=== PATIENT | male | born 1930 | race Caucasian/White ===

== ENCOUNTER 2016-08-21 05:56 | Inpatient (IN) | payer OTHER ==
[~2016-08-21] VITALS: Ht 172.7 cm; Wt 59.1 kg
[~2016-08-21 05:56] MED LIST: ALBUTEROL0.09 MG/A1 INH; AZITHROMYCIN250 MG PO; CEFUROXIME AXE500 MG PO; CHILDREN'S ASPI81 M1 PO; CLONAZEPAM0.5 M2 PO; EXELON1 EAC2 TOP; FEROSUL325 M1 PO; LEVOTHROID0.025 MG PO; NAMENDA10 M2 PO; NAMENDA10 MG PO; NAMENDA5 MG PO; OMEPRAZOLE40 M1 PO; SYMBICORT 16010.2 GM INH; ZOLOFT100 M1 PO
--- NOTE | 2016-08-21 06:18 | NUR ---
PT BIBA FROM HOME. PER EMS, PT'S STATES THAT PT'S HAS A CHANGE IN MENTAL STATUS AND URINE IS DARK IN COLOR. IN EMS PT'S TEMP WAS 102.6. ON ARRIVAL PT'S TEMP 99.0. PT ARRIVES TO ED ALERT. PT HAS HISTORY OF DEMENTIA, PARKINSONS AND LEUKEMIA. PREHOSPITAL 20G IN LF, NS BOLUS INITIATED VIA EMS.
--- NOTE | 2016-08-21 07:16 | NUR ---
PT'S AT BEDSIDE. PT ASSISTED TO COMMODE.
--- NOTE | 2016-08-21 07:28 | NUR ---
DR KATZ IN FOR EVAL.
--- NOTE | 2016-08-21 07:42 | ED AMS/SEIZURE/WEAK/DIZZY ---
History of Present Illness General Chief Complaint: General Adult Stated Complaint: BIBA AMS,DEMENTIA,FEVER Source: old records, Exam Limitations: unable to give history, dementia Vital Signs & Intake/Output Vital Signs & Intake/Output Vital Signs Date Time Temp Pulse Resp B/P Pulse O2 O2 Flow FiO2 Ox Delivery Rate 08/24 0656 97.8 80 20 116/50 90 Room Air 08/24 0000 Nasal 2.0L Cannula 08/23 2233 98.1 84 20 128/62 96 Room Air 08/23 1600 98 Nasal 2.0L Cannula 08/23 1600 98.7 79 20 124/55 98 Nasal 2.0L Cannula 08/23 1348 95 Nasal 2.0L Cannula 08/23 1216 98.6 74 14 122/58 97 Nasal 2.0L Cannula ED Intake and Output 08/24 0000 08/23 1200 Intake Total 940 Output Total 1 Balance 939 Intake, IV 300 Intake, Oral 640 Number 4 3 Bowel Movements Output, Stool 1 Allergies Coded Allergies: NO KNOWN ALLERGIES (07/20/14) Reconcile Medications Aspirin (Children's Aspirin) 81 MG TAB.CHEW 1 TAB PO DAILY HEART HEALTH ( Reported) Budesonide/Formoterol Fumarate (Symbicort 160-4.5 Mcg Inhaler) 160 MCG-4.5 MCG/ ACTUATION HFA.AER.AD 2 PUF INH BID BREATHING PROBLEMS (Reported) Clonazepam 0.5 MG TABLET 1 TAB PO DAILY ANTIVIRAL (Reported) Ferrous Sulfate (Ferosul) 325 MG (65 MG IRON) TABLET 1 TAB PO DAILY SUPPLEMENT (Reported) Levothyroxine Sodium 25 MCG TABLET 1 TAB PO DAILY THYROID (Reported) Memantine HCl (Namenda) 10 MG TABLET 1 TAB PO BID DEMENTIA (Reported) Omeprazole 40 MG CAPSULE.DR 1 CAP PO DAILY GI (Reported) Quetiapine Fumarate 25 MG TABLET 1 TAB PO QPM MENTAL HEALTH (Reported) Rivastigmine (Exelon) 13.3 MG/24 HOUR PATCH.TD24 1 PAT TOP DAILY DEMENTIA ( Reported) Sertraline HCl (Zoloft) 100 MG TABLET 2 TAB PO DAILY DEPRESSION (Reported) Triage Note: PT BIBA FROM HOME. PER EMS, PT'S STATES THAT PT'S HAS A CHANGE IN MENTAL STATUS AND URINE IS DARK IN COLOR. IN EMS PT'S TEMP WAS 102.6. ON ARRIVAL PT'S TEMP 99.0. PT ARRIVES TO ED ALERT. PT HAS HISTORY OF DEMENTIA, PARKINSONS AND LEUKEMIA. PREHOSPITAL 20G IN LF, NS BOLUS INITIATED VIA EMS. Triage Nurses Notes Reviewed? yes HPI: Patient presents for evaluation of confusion, weakness, shaking and inability to sleep over the past week. This morning patient spiked a fever of 102.7 at home according to his . Patient himself is unable to provide history. states that she thinks he has had trouble breathing from time to time (he has a past history of asthma) but otherwise no apparent nausea vomiting diarrhea or pain. Past History Travel History Traveled to [place] past 21 day No Medical History Any Pertinent Medical History? 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 No Review of Systems Review of Systems Constitutional: Reports: no symptoms. EENTM: Reports: no symptoms. Respiratory: Reports: no symptoms. Cardiovascular: Reports: no symptoms. GI: Reports: no symptoms. Genitourinary: Reports: no symptoms. Musculoskeletal: Reports: no symptoms. Skin: Reports: no symptoms. Neurological/Psychological: Reports: no symptoms. Hematologic/Endocrine: Reports: no symptoms. Immunologic/Allergic: Reports: no symptoms. All Other Systems: Reviewed and Negative Physical Exam Physical Exam General Appearance: see below Comments: Gen.: Well-nourished, well-developed, no acute respiratory distress. Head: Normocephalic, atraumatic. Eyes: Normal inspection bilaterally Ears: Normal inspection bilaterally Nose: Normal inspection Throat/mouth : Moist mucosa Neck: Supple, full range of motion, no goiter Heart: Regular rate and rhythm, no murmurs rubs or gallops Lungs: Clear to auscultation bilaterally with normal air entry Chest: Nontender Back: Normal range of motion Abdomen: Soft, nontender, nondistended, normal bowel sounds Extremities: Normal range of motion grossly, equal radial pulses, no cyanosis clubbing or edema, gross tremors present, calves nontender Neurologic: Cranial nerves grossly intact, speech is clear Skin: warm and dry Psychiatric: Calm, cooperative, grossly normal affect otherwise unable to assess Core Measures ACS in differential dx? No CVA/TIA Diagnosis: No Severe Sepsis Present: No Septic Shock Present: No Progress Differential Diagnosis: anemia, dehydration, hypoglycemia, hypoxia, pneumonia, UTI/pyelo Plan of Care: Orders Procedure Date/time Status Regular Diet 08/24 B Active LDH (LACT ACID DEHYDROGENASE) 08/24 0600 Active HEPATIC FUNCTION PANEL 08/24 06 Active CBC WITHOUT DIFFERENTIAL 08/24 06 Active BASIC ELECTROLYTES PLUS BUN&CR 08/24 0600 Active Clear Liquid Diet 08/23 D Complete PT Evaluate & Treat 08/23 UNK Active MISSING MEDICATION FORM 08/23 UNK Active Current Medications Sig/Pita Start time Last Medication Dose Stop Time Status Admin Ferrous Sulfate 325 MG DAILY 08/24 1000 AC (Feosol) Laboratory Tests 08/24/16 0628: Sodium Pending, Potassium Pending, Chloride Pending, Carbon Dioxide Pending, Anion Gap Pending, BUN Pending, Creatinine Pending, BUN/Creatinine Ratio Pending , Total Bilirubin Pending, Direct Bilirubin Pending, AST Pending, ALT Pending, Alkaline Phosphatase Pending, Lactate Dehydrogenase Pending, Total Protein Pending, Albumin Pending, CBC w Diff Pending, WBC Pending, RBC Pending, Hgb Pending, Hct Pending, MCV Pending, MCH Pending, RDW Pending, Plt Count Pending, MPV Pending, Gran % Pending, Lymphocytes % Pending, Monocytes % Pending, Eosinophils % Pending, Basophils % Pending, Absolute Granulocytes Pending, Absolute Lymphocytes Pending, Absolute Monocytes Pending, Absolute Eosinophils Pending, Absolute Basophils Pending, PUBS MCHC Pending Diagnostic Imaging: Discussed w/RAD: CT Scan. Radiology Impression: PATIENT: DEANN MUNOZ PRESENT AGE: 86 PATIENT ACCOUNT NO: [id number] : 31 LOCATION: [facility], [place] ORDERING PHYSICIAN: SUSAN KATZ MD SERVICE DATE: 08/21/16 EXAM TYPE: CAT - CT ABD & PELVIS W/O IV CONTRAS; CT CHEST WO IV CONTRAST EXAMINATION: CT CHEST, ABDOMEN AND PELVIS WITHOUT CONTRAST CLINICAL INFORMATION: History of lung carcinoma. Status post left lower lobe wedge resection. Fever. Evaluate for pneumonia. Evaluate for diverticulitis. COMPARISON: Multiple prior CT chest most recent prior dated 10/06/2015. CT abdomen and pelvis dated 11/12/2010. TECHNIQUE : Multidetector volumetric imaging was performed from the thoracic inlet through the pubic symphysis without intravenous contrast. Sagittal and coronal reformatted images were obtained on the technologist workstation. DLP: 137.69 mGy-cm FINDINGS: CHEST: LUNG: New Patchy nodular groundglass opacities noted in the left upper lobe and new smaller patch off groundglass opacity medial aspect right lower lobe compared to most recent prior examination. However, somewhat similar appearance was seen on the older examinations compatible with a waxing and waning pattern. Abnormal pleural thickening and pleural-based opacities left lower lobe and to a lesser extent right posterior base demonstrate interval increase in the left lower lobe and a new finding in the right base. Adjacent postoperative changes noted in the left base compatible with prior history of metastatic resection. Tiny subpleural nodules noted again in right upper lobe ( series 4 image 116) MEDIASTINUM: Atherosclerosis with intimal transformation of the aorta, great vessels and coronary arteries. Slight interval increase in the pretracheal lymph node measuring approximately 1 cm in short axis. (Series 2 image 14) slight interval increase in the right precarinal lymph node. PERICARDIUM/PLEURA: Abnormal pleural thickening and pleural-based opacities bilateral lower lobes, left greater than right. No evidence of pleural effusion. Pleural-based postoperative changes left lower lobe. CHEST WALL/AXILLA: Unremarkable. ABDOMEN/PELVIS: Evaluation is very limited due to noncontrast examination. LIVER, GALLBLADDER, BILIARY TREE: The liver is normal in size, shape, and attenuation. No focal hepatic lesion or biliary ductal dilatation is present. Metallic hyperdensity along the outer aspect segment 5 right hepatic lobe. Subtle hyperdense bile or gallbladder sludge suspected. No abnormal gallbladder wall thickness. PANCREAS: No gross abnormality on the noncontrast images. SPLEEN: Gross splenomegaly. Spleen measures approximately 19 cm in the AP diameter. Compared to recent prior CT chest, has been slight interval increase. Compared to remote CT abdomen and pelvis, this represents a new finding. ADRENAL GLANDS: Unremarkable. KIDNEYS AND URETERS: The kidneys are normal in size, shape, and attenuation. No hydronephrosis, hydroureter, or calculi seen. No perinephric stranding. BLADDER: Unremarkable. GASTROINTESTINAL TRACT: Colonic diverticulosis notably in the sigmoid colon. No evidence of acute diverticulitis. Limited evaluation of the gastric and bowel pedro due to incomplete distention. There is no evidence of abnormal mesenteric stranding or edema. No abnormal fluid collection identified. ABDOMINAL WALL: No significant hernia is appreciated. LYMPHOVASCULAR STRUCTURES: Atherosclerotic disease of the aorta and aortic branches.. PELVIC VISCERA: Status post prostatectomy. OSSEUS STRUCTURES: Degenerative changes of the spine and bilateral hips, right greater than left. No acute or suspicious abnormality. IMPRESSION: 1. Patchy nodular groundglass opacity left upper lobe and focal patchy groundglass opacity right lower lobe. Although they represent a new finding compared to recent prior CT chest, somewhat similar appearance was seen on the older examinations. This waxing and waning pattern can be seen with patchy pneumonitis or other infectious etiology. Given the history of neoplasm, close monitoring is recommended. 2. Increasing pleural thickening and pleural-based opacity left lower lobe and to lesser extent right lower lobe represent evolving bibasilar infiltrates in the appropriate clinical setting. Clinical correlation and follow -up CT chest after treatment recommended. 3. Increasing mediastinal brady enlargement likely representing reactive inflamed nodes. However, given the patient's history early metastatic involvement cannot be excluded. 4. Gross splenomegaly. 5. No evidence of diverticulitis. Colonic diverticulosis. DICTATED BY: DARIEN AVITIA MD DATE/TIME DICTATED:08/21/16858 DIRECTOR MEDIA: JAMMIE DATE/TIME TRANSCRIBED:08/21/16858 CONFIDENTIAL, DO NOT COPY WITHOUT APPROPRIATE AUTHORIZATION. <Electronically signed in Other Vendor System> SIGNED BY: DARIEN AVITIA MD 08/21/16 0944 Initial ED EKG: paced rhythm without acute ST segment changes Comments: 08/21/2016 9:45:40 AM I have updated Deann and his on test results. Reading CAT scan reports. rectal examination performed: heme-negative brown stool. 08/21/2016 9:53:00 AM I have been notified by the lab that the patient's blood will be delayed due to a strong antibody response. Fortunately he is clinically stable at this time and there appears to be no clinical evidence of bleeding. In addition, the patient had a fever at home indicating a possible infection. However this is complicated by the fact that the patient has CLL, apparently, that could also be causing his fever. Clinically there is no clear signs or symptoms of infection. The CAT scans report indicates groundglass appearance of the lungs, it is unclear if this is an infectious process as it has been seen in the past and pt has no apparent complaints referable to the chest. cause of pts hx of fever is unclear at this point. presumptive abx ordered. 08/21/2016 1:40:49 PM I was contacted by Dr. Daisy Petty regarding this patient 's admission. He is to be admitted to her service in the ICU. The concern is of potential hemolysis and fluid overload during transfusion. Departure Departure Disposition: STILL A PATIENT Condition: Stable Clinical Impression Primary Impression: Confusion Secondary Impressions: JASEN (acute kidney injury) Leukocytosis Qualifiers: Leukocytosis type: lymphocytosis Qualified Code: D72.820 - Lymphocytosis (symptomatic) Referrals: GUS SOLORIO MD (PCP/Family) Departure Forms: Customer Survey General Discharge Information Admission Note Spoke With: ANA NDIAYE MD Documentation of Exam: Documentation of any treatments & extenuating circumstances including Concerns Regarding Discharge (functional status, medication knowledge or non-compliance, living conditions, etc.) that warrant an admission rather than observation: Patient has a severe anemia of unclear cause. There is no clinical signs of bleeding at this time. The patient does have a history of I presume to be CLL. The patient is now symptomatic from severe anemia resulting in weakness and increasing tremors/exacerbation of Parkinson disease. He also has a history of fever of unclear etiology (potentially due to his presumed diagnosis of CLL versus infectious etiology). The patient's anemia treatment is complicated by strong antibody responses on type and screen. We are attempting to obtain blood from the [facility]. Given the patient's advanced age and multiple medical comorbidities it do not feel he is a good candidate for treatment at this time. I do not feel he would be capable compliance with outpatient treatment plan under the circumstances. In addition he would be at risk of worsening anemia, shortness of breath, chest pain, syncope and exacerbation of his pre-existing chronic medical problems as outlined above. I feel he now requires hospitalization for an urgent blood transfusion once he is typed and cross, monitoring of kidney functions given his acute kidney injury and monitoring for an infectious or inflammatory etiology. Given the above his treatment and recovery will likely be prolonged and complicated. Hematology oncology consultation should be strongly considered. increase. Compared to remote CT abdomen and pelvis, this represents a new finding. ADRENAL GLANDS: Unremarkable. KIDNEYS AND URETERS: The kidneys are normal in size, shape, and attenuation. No hydronephrosis, hydroureter, or calculi seen. No perinephric stranding. BLADDER: Unremarkable. GASTROINTESTINAL TRACT: Colonic diverticulosis notably in the sigmoid colon. No evidence of acute diverticulitis. Limited evaluation of the gastric and bowel pedro due to incomplete distention. There is no evidence of abnormal mesenteric stranding or edema. No abnormal fluid collection identified. ABDOMINAL WALL: No significant hernia is appreciated. LYMPHOVASCULAR STRUCTURES: Atherosclerotic disease of the aorta and aortic branches.. PELVIC VISCERA: Status post prostatectomy. OSSEUS STRUCTURES: Degenerative changes of the spine and bilateral hips, right greater than left. No acute or suspicious abnormality. IMPRESSION: 1. Patchy nodular groundglass opacity left upper lobe and focal patchy groundglass opacity right lower lobe. Although they represent a new finding compared to recent prior CT chest, somewhat similar appearance was seen on the older examinations. This waxing and waning pattern can be seen with patchy pneumonitis or other infectious etiology. Given the history of neoplasm, close monitoring is recommended. 2. Increasing pleural thickening and pleural-based opacity left lower lobe and to lesser extent right lower lobe represent evolving bibasilar infiltrates in the appropriate clinical setting. Clinical correlation and follow -up CT chest after treatment recommended. 3. Increasing mediastinal brady enlargement likely representing reactive inflamed nodes. However, given the patient's history early metastatic involvement cannot be excluded. 4. Gross splenomegaly. 5. No evidence of diverticulitis. Colonic diverticulosis. DICTATED BY: DARIEN AVITIA MD DATE/TIME DICTATED:08/21/16858 DIRECTOR MEDIA: JAMMIE DATE/TIME TRANSCRIBED:08/21/16858 CONFIDENTIAL, DO NOT COPY WITHOUT APPROPRIATE AUTHORIZATION. <Electronically signed in Other Vendor System> SIGNED BY: DARIEN AVITIA MD 08/21/16 0944 Initial ED EKG: paced rhythm without acute ST segment changes Comments: 08/21/2016 9:45:40 AM I have updated Deann and his on test results. Reading CAT scan reports. rectal examination performed: heme-negative brown stool. 08/21/2016 9:53:00 AM I have been notified by the lab that the patient's blood will be delayed due to a strong antibody response. Fortunately he is clinically stable at this time and there appears to be no clinical evidence of bleeding. In addition, the patient had a fever at home indicating a possible infection. However this is complicated by the fact that the patient has CLL, apparently, that could also be causing his fever. Clinically there is no clear signs or symptoms of infection. The CAT scans report indicates groundglass appearance of the lungs, it is unclear if this is an infectious process as it has been seen in the past and pt has no apparent complaints referable to the chest. cause of pts hx of fever is unclear at this point. presumptive abx ordered. 08/21/2016 1:40:49 PM I was contacted by Dr. Daisy Petty regarding this patient 's admission. He is to be admitted to her service in the ICU. The concern is of potential hemolysis and fluid overload during transfusion. Departure Departure Disposition: STILL A PATIENT Condition: Stable Clinical Impression Primary Impression: Confusion Secondary Impressions: JASEN (acute kidney injury) Leukocytosis Qualifiers: Leukocytosis type: lymphocytosis Qualified Code: D72.820 - Lymphocytosis (symptomatic) Referrals: LYNDSEY TRUONG,GUS Vieira (PCP/Family) Departure Forms: Customer Survey General Discharge Information Admission Note Spoke With: ANA NDIAYE MD Documentation of Exam: Documentation of any treatments & extenuating circumstances including Concerns Regarding Discharge (functional status, medication knowledge or non-compliance, living conditions, etc.) that warrant an admission rather than observation: Patient has a severe anemia of unclear cause. There is no clinical signs of bleeding at this time. The patient does have a history of I presume to be CLL. The patient is now symptomatic from severe anemia resulting in weakness and increasing tremors/exacerbation of Parkinson disease. He also has a history of fever of unclear etiology (potentially due to his presumed diagnosis of CLL versus infectious etiology). The patient's anemia treatment is complicated by strong antibody responses on type and screen. We are attempting to obtain blood from the [facility]. Given the patient's advanced age and multiple medical comorbidities it do not feel he is a good candidate for treatment at this time. I do not feel he would be capable compliance with outpatient treatment plan under the circumstances. In addition he would be at risk of worsening anemia, shortness of breath, chest pain, syncope and exacerbation of his pre-existing chronic medical problems as outlined above. I feel he now requires hospitalization for an urgent blood transfusion once he is typed and cross, monitoring of kidney functions given his acute kidney injury and monitoring for an infectious or inflammatory etiology. Given the above his treatment and recovery will likely be prolonged and complicated. Hematology oncology consultation should be strongly considered.
--- NOTE | 2016-08-21 07:47 | NUR ---
INFORMED PT OF CHANGE OF SHIFT, UPDATED PT BOARDS.
[2016-08-21] MEDS ORDERED: QUETIAPINE FUMA25 M1 PO (08:00)
[2016-08-21] MEDS ORDERED: LEVOTHYROXINE25 MCG PO (08:04)
[2016-08-21 08:40] LABS: ABSOLUTE BASOPHIL COUNT 0.1 /CUMM (0.0-0.2); ABSOLUTE EOSINOPHIL COUNT 0 /CUMM (0.0-0.7); ABSOLUTE GRANULOCYTE CT 4.5 /CUMM (1.4-6.5); ABSOLUTE LYMPH COUNT 16.5 /CUMM (1.2-3.4); BASOPHIL % 0.2 % (0.0-2.0); EOSINOPHIL % 0.2 % (0-5); MEAN CORPUSCULAR HGB 33.2 PG (27.0-31.0); MEAN CORPUSCULAR HGB CONC 31.8 G/DL (33.0-37.0); MEAN CORPUSCULAR VOLUME 104.3 FL (80.0-94.0); MEAN PLATELET VOLUME 7.6 FL (7.4-10.4); RBC DISTRIBUTION WIDTH 17.2 % (11.5-14.5); WHITE BLOOD CELL COUNT 22.1 /CUMM (4.8-10.8)
[2016-08-21 08:48] LABS: HEMATOCRIT 15.1 % (42-52)
--- NOTE | 2016-08-21 08:48 | NUR ---
PT TO CAT SCAN.
--- NOTE | 2016-08-21 08:49 | NUR ---
CRITICAL TEST RESULTS [id number] DEANN MUNOZ 86 M TESTS AND RESULTS: HGB 4.8, HCT 15.1 Results received and read back by: VITO KATZ Results received date and time: 08/21/16 0849 The following provider was notified of the results, and read the results back: DR KATZ Notified date and time: 08/21/16 at 0849
--- NOTE | 2016-08-21 08:56 | NUR ---
BACK FROM CAT SCAN
[2016-08-21 08:59] LABS: GRANULOCYTE % 20.4 % (42.2-75.2); PLATELET COUNT 97 /CUMM (130-400)
--- NOTE | 2016-08-21 09:00 | NUR ---
TYPE AND SCREEN SENT.
--- NOTE | 2016-08-21 09:44 | CT SCAN REPORT ---
EXAMINATION: CT CHEST, ABDOMEN AND PELVIS WITHOUT CONTRAST CLINICAL INFORMATION: History of lung carcinoma. Status post left lower lobe wedge resection. Fever. Evaluate for pneumonia. Evaluate for diverticulitis. COMPARISON: Multiple prior CT chest most recent prior dated 10/06/2015. CT abdomen and pelvis dated 11/12/2010. TECHNIQUE: Multidetector volumetric imaging was performed from the thoracic inlet through the pubic symphysis without intravenous contrast. Sagittal and coronal reformatted images were obtained on the technologist workstation. DLP: 137.69 mGy-cm FINDINGS: CHEST: LUNG: New Patchy nodular groundglass opacities noted in the left upper lobe and new smaller patch off groundglass opacity medial aspect right lower lobe compared to most recent prior examination. However, somewhat similar appearance was seen on the older examinations compatible with a waxing and waning pattern. Abnormal pleural thickening and pleural-based opacities left lower lobe and to a lesser extent right posterior base demonstrate interval increase in the left lower lobe and a new finding in the right base. Adjacent postoperative changes noted in the left base compatible with prior history of metastatic resection. Tiny subpleural nodules noted again in right upper lobe (series 4 image 116) MEDIASTINUM: Atherosclerosis with intimal transformation of the aorta, great vessels and coronary arteries. Slight interval increase in the pretracheal lymph node measuring approximately 1 cm in short axis. (Series 2 image 14) slight interval increase in the right precarinal lymph node. PERICARDIUM/PLEURA: Abnormal pleural thickening and pleural-based opacities bilateral lower lobes, left greater than right. No evidence of pleural effusion. Pleural-based postoperative changes left lower lobe. CHEST WALL/AXILLA: Unremarkable. ABDOMEN/PELVIS: Evaluation is very limited due to noncontrast examination. LIVER, GALLBLADDER, BILIARY TREE: The liver is normal in size, shape, and attenuation. No focal hepatic lesion or biliary ductal dilatation is present. Metallic hyperdensity along the outer aspect segment 5 right hepatic lobe. Subtle hyperdense bile or gallbladder sludge suspected. No abnormal gallbladder wall thickness. PANCREAS: No gross abnormality on the noncontrast images. SPLEEN: Gross splenomegaly. Spleen measures approximately 19 cm in the AP diameter. Compared to recent prior CT chest, has been slight interval increase. Compared to remote CT abdomen and pelvis, this represents a new finding. ADRENAL GLANDS: Unremarkable. KIDNEYS AND URETERS: The kidneys are normal in size, shape, and attenuation. No hydronephrosis, hydroureter, or calculi seen. No perinephric stranding. BLADDER: Unremarkable. GASTROINTESTINAL TRACT: Colonic diverticulosis notably in the sigmoid colon. No evidence of acute diverticulitis. Limited evaluation of the gastric and bowel pedro due to incomplete distention. There is no evidence of abnormal mesenteric stranding or edema. No abnormal fluid collection identified. ABDOMINAL WALL: No significant hernia is appreciated. LYMPHOVASCULAR STRUCTURES: Atherosclerotic disease of the aorta and aortic branches.. PELVIC VISCERA: Status post prostatectomy. OSSEUS STRUCTURES: Degenerative changes of the spine and bilateral hips, right greater than left. No acute or suspicious abnormality. IMPRESSION: 1. Patchy nodular groundglass opacity left upper lobe and focal patchy groundglass opacity right lower lobe. Although they represent a new finding compared to recent prior CT chest, somewhat similar appearance was seen on the older examinations. This waxing and waning pattern can be seen with patchy pneumonitis or other infectious etiology. Given the history of neoplasm, close monitoring is recommended. 2. Increasing pleural thickening and pleural-based opacity left lower lobe and to lesser extent right lower lobe represent evolving bibasilar infiltrates in the appropriate clinical setting. Clinical correlation and follow-up CT chest after treatment recommended. 3. Increasing mediastinal brady enlargement likely representing reactive inflamed nodes. However, given the patient's history early metastatic involvement cannot be excluded. 4. Gross splenomegaly. 5. No evidence of diverticulitis. Colonic diverticulosis.
--- NOTE | 2016-08-21 10:40 | NUR ---
LACTIC ACID SENT. 2 PINK TOP TUBES SENT PER LABS REQUEST. 2 IV EST TO [facility].
--- NOTE | 2016-08-21 11:25 | NUR ---
LUNCH TRAY ORDERED.
--- NOTE | 2016-08-21 11:30 | NUR ---
HOUSESTAFF IN FOR EVAL.
--- NOTE | 2016-08-21 11:37 | NUR ---
RT CALLED FOR NEB.
--- NOTE | 2016-08-21 11:42 | History & Physical ---
MYRON TRUONG,BETINA 08/21/16 1142: General Information and HPI MD Statement: I have seen and personally examined DEANN MUNOZ and documented this H&P. The patient is a 86 year old M who presented with a patient stated chief complaint of [per , he has just been confused]. 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 Mas; presents to the emergency room via ambulance and also his who states that "he is just not been himself for the past few days". Of note, the patient currently does have acute delirium is unable to give a proper history. The history of presenting illness was obtained from his . Per , over the course of last couple of days patient has been altered and has not been communicating with her clearly. She feels that his Parkinson's is getting worse. No fevers or chills. While in the emergency room he was found to have an H&H of 4&16; per he has been having some "dark stool" lately. A meaningful review systems could not be obtained at this time due to the patient' s condition. Allergies/Medications Allergies: Coded Allergies: NO KNOWN ALLERGIES (07/20/14) Home Med list Aspirin (Children's Aspirin) 81 MG TAB.CHEW 1 TAB PO DAILY HEART HEALTH ( Reported) Budesonide/Formoterol Fumarate (Symbicort 160-4.5 Mcg Inhaler) 160 MCG-4.5 MCG/ ACTUATION HFA.AER.AD 2 PUF INH BID BREATHING PROBLEMS (Reported) Clonazepam 0.5 MG TABLET 1 TAB PO DAILY ANTIVIRAL (Reported) Ferrous Sulfate (Ferosul) 325 MG (65 MG IRON) TABLET 1 TAB PO DAILY SUPPLEMENT (Reported) Levothyroxine Sodium 25 MCG TABLET 1 TAB PO DAILY THYROID (Reported) Memantine HCl (Namenda) 10 MG TABLET 1 TAB PO BID DEMENTIA (Reported) Omeprazole 40 MG CAPSULE.DR 1 CAP PO DAILY GI (Reported) Quetiapine Fumarate 25 MG TABLET 1 TAB PO QPM MENTAL HEALTH (Reported) Rivastigmine (Exelon) 13.3 MG/24 HOUR PATCH.TD24 1 PAT TOP DAILY DEMENTIA ( Reported) Sertraline HCl (Zoloft) 100 MG TABLET 2 TAB PO DAILY DEPRESSION (Reported) Past History Travel History Traveled to [place] past 21 day No Medical History Neurological: Parkinson's disease, dementia EENT: NONE Cardiovascular: cardiomyopathy Respiratory: asthma, adenocarcioma s/p resection Gastrointestinal: ACID REFLUX Hepatic: NONE Renal: NONE Musculoskeletal: NONE Psychiatric: anxiety, depression Endocrine: NONE Blood Disorders: NONE Cancer(s): leukemia, prostate cancer, 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 spouse Services at Home: None Functional Ability Ambulation: independent Review of Systems Review of Systems Constitutional: Reports: see HPI. Exam & Diagnostic Data Last 24 Hrs of Vital Signs/I&O Vital Signs Date Time Temp Pulse Resp B/P Pulse O2 O2 Flow FiO2 Ox Delivery Rate 08/21 1034 98.9 86 16 119/54 100 Nasal 2.0L Cannula 08/21 0807 98.8 80 20 111/55 95 Nasal 2.0L Cannula 08/21 0648 94 Nasal 2.0L Cannula 08/21 0618 99.0 84 16 129/58 94 Nasal 2.0L Cannula Intake & Output 08/21 1600 08/21 0800 08/21 0000 Intake Total 0 Output Total Balance 0 Intake, Oral 0 Patient 160 lb Weight Physical Exam General Appearance NOT ALERT OR ORIENTED Skin No Breakdown HEENT Atraumatic, PERRLA Neck No JVD Cardiovascular Normal S1, Normal S2 Lungs DIFFUSE WHEEZING AND RONCHII Abdomen Normal Bowel Sounds, Soft, No Tenderness Extremities No Clubbing, No Cyanosis Rectal Guiac Negative Last 24 Hrs of Labs/Nilesh: Laboratory Tests 08/21/16 1040: Lactic Acid < 0.5 L 08/21/16 0813: Anion Gap 6, Estimated GFR 38 L, BUN/Creatinine Ratio 23.5, Glucose 118 H, Calcium 8.2 L, Total Bilirubin 2.0 H, AST 23, ALT 28, Alkaline Phosphatase 59, Total Protein 6.0 L, Albumin 4.1, Globulin 1.9, Albumin/Globulin Ratio 2.2, CBC w Diff MAN DIFF ORDERED, RBC 1.45 L, MCV 104.3 H, MCH 33.2 H, RDW 17.2 H, MPV 7.6, Gran % 20.4 L, Lymphocytes % 74.5 H, Monocytes % 4.7, Eosinophils % 0.2, Basophils % 0.2, Absolute Granulocytes 4.5, Segmented Neutrophils 21 L, Band Neutrophils 2, Absolute Lymphocytes 16.5 H, Lymphocytes 74 H, Monocytes 2 , Absolute Monocytes 1.0 H, Eosinophils 1, Absolute Eosinophils 0, Absolute Basophils 0.1, Platelet Estimate VERIFIED BY SMEAR, Poikilocytosis 1+, Anisocytosis 1+, Macrocytic Cells 1+, PUBS MCHC 31.8 L 08/21/16724: Urine Color YEL, Urine Clarity CLEAR, Urine pH 6.0, Ur Specific [place] 1.015, Urine Protein TRACE H, Urine Ketones NEG, Urine Nitrite NEG, Urine Bilirubin NEG, Urine Urobilinogen 0.2, Ur Leukocyte Esterase NEG, Ur Microscopic SEDIMENT EXAMINED, Urine RBC RARE, Urine WBC RARE, Ur Epithelial Cells RARE, Urine Bacteria RARE H, Urine Mucus MOD H, Urine Hemoglobin NEG, Urine Glucose NEG Microbiology 08/21 814 BLOOD: Blood Culture - RECD 08/22 799 BLOOD: Blood Culture - RECD 08/21 740 URINE ROUT: Urine Culture - CAN Cancelled: Cancelled via OE: CAN BE ADDED ON 08/21 724 URINE ROUT: Urine Culture - RECD Diagnostic Data EKG Results Rate 85, PO2 16, QRS 142, QTC 447 Paced rhythm Other Results CAT scan of the chest abdomen and pelvis PATIENT: DEANN MUNOZ PRESENT AGE: 86 PATIENT ACCOUNT NO: [id number] : 31 LOCATION: [facility] ORDERING PHYSICIAN: SUSAN KATZ MD SERVICE DATE: 08/21/16 EXAM TYPE: CAT - CT ABD & PELVIS W/O IV CONTRAS; CT CHEST WO IV CONTRAST EXAMINATION: CT CHEST, ABDOMEN AND PELVIS WITHOUT CONTRAST CLINICAL INFORMATION: History of lung carcinoma. Status post left lower lobe wedge resection. Fever. Evaluate for pneumonia. Evaluate for diverticulitis. COMPARISON: Multiple prior CT chest most recent prior dated 10/06/2015. CT abdomen and pelvis dated 11/12/2010. TECHNIQUE: Multidetector volumetric imaging was performed from the thoracic inlet through the pubic symphysis without intravenous contrast. Sagittal and coronal reformatted images were obtained on the technologist workstation. DLP: 137.69 mGy-cm FINDINGS: CHEST: LUNG: New Patchy nodular groundglass opacities noted in the left upper lobe and new smaller patch off groundglass opacity medial aspect right lower lobe compared to most recent prior examination. However, somewhat similar appearance was seen on the older examinations compatible with a waxing and waning pattern. Abnormal pleural thickening and pleural-based opacities left lower lobe and to a lesser extent right posterior base demonstrate interval increase in the left lower lobe and a new finding in the right base. Adjacent postoperative changes noted in the left base compatible with prior history of metastatic resection. Tiny subpleural nodules noted again in right upper lobe (series 4 image 116) MEDIASTINUM: Atherosclerosis with intimal transformation of the aorta, great vessels and coronary arteries. Slight interval increase in the pretracheal lymph node measuring approximately 1 cm in short axis. (Series 2 image 14) slight interval increase in the right precarinal lymph node. PERICARDIUM/PLEURA: Abnormal pleural thickening and pleural-based opacities bilateral lower lobes, left greater than right. No evidence of pleural effusion. Pleural-based postoperative changes left lower lobe. CHEST WALL/AXILLA: Unremarkable. ABDOMEN/PELVIS: Evaluation is very limited due to noncontrast examination. LIVER, GALLBLADDER, BILIARY TREE: The liver is normal in size, shape, and attenuation. No focal hepatic lesion or biliary ductal dilatation is present. Metallic hyperdensity along the outer aspect segment 5 right hepatic lobe. Subtle hyperdense bile or gallbladder sludge suspected. No abnormal gallbladder wall thickness. PANCREAS: No gross abnormality on the noncontrast images. SPLEEN: Gross splenomegaly. Spleen measures approximately 19 cm in the AP diameter. Compared to recent prior CT chest, has been slight interval increase. Compared to remote CT abdomen and pelvis, this represents a new finding. ADRENAL GLANDS: Unremarkable. KIDNEYS AND URETERS: The kidneys are normal in size, shape, and attenuation. No hydronephrosis, hydroureter, or calculi seen. No perinephric stranding. BLADDER: Unremarkable. GASTROINTESTINAL TRACT: Colonic diverticulosis notably in the sigmoid colon. No evidence of acute diverticulitis. Limited evaluation of the gastric and bowel pedro due to incomplete distention. There is no evidence of abnormal mesenteric stranding or edema. No abnormal fluid collection identified. ABDOMINAL WALL: No significant hernia is appreciated. LYMPHOVASCULAR STRUCTURES: Atherosclerotic disease of the aorta and aortic branches.. PELVIC VISCERA: Status post prostatectomy. OSSEUS STRUCTURES: Degenerative changes of the spine and bilateral hips, right greater than left. No acute or suspicious abnormality. IMPRESSION: 1. Patchy nodular groundglass opacity left upper lobe and focal patchy groundglass opacity right lower lobe. Although they represent a new finding compared to recent prior CT chest, somewhat similar appearance was seen on the older examinations. This waxing and waning pattern can be seen with patchy pneumonitis or other infectious etiology. Given the history of neoplasm, close monitoring is recommended. 2. Increasing pleural thickening and pleural-based opacity left lower lobe and to lesser extent right lower lobe represent evolving bibasilar infiltrates in the appropriate clinical setting. Clinical correlation and follow-up CT chest after treatment recommended. 3. Increasing mediastinal brady enlargement likely representing reactive inflamed nodes. However, given the patient's history early metastatic involvement cannot be excluded. 4. Gross splenomegaly. 5. No evidence of diverticulitis. Colonic diverticulosis. DICTATED BY: DARIEN AVITIA MD DATE/TIME DICTATED:08/21/16858 NAIL MILL WORKER:JAMMIE DATE/TIME TRANSCRIBED:08/21/16858 CONFIDENTIAL, DO NOT COPY WITHOUT APPROPRIATE AUTHORIZATION. <Electronically signed in Other Vendor System> SIGNED BY: DARIEN AVITIA MD 08/21/16 0944 Assessment/Plan Assessment: Assessment- 1. Acute blood loss anemia, multifactorial- GI vs CLL vs acute hemolytic anemia , etc. 2. Acute confusion/delirium likely secondary to hypoperfusion because of the anemia versus pneumonia as evidenced by CAT scan 3. Leukocytosis of 22,000 4. Hyperkalemia, potassium 5.6 5. Acute kidney injury; BUN 40, creatinine 1.7 6. Elevated bilirubin, 2.0 7. CLL 8. History of prostate cancer 9. History lung cancer, status post left lower lobectomy 10. Hypothyroidism 11. History of asthma 12. Anxiety and depression Plan- Gen med admission Vitals per protocol Guaiac all stools 2 large-bore IVs at all times IV PPI GI consult, possible endoscopic intervention He has been type and screen, apparently he does have some vague antibodies, his blood work has been further sent to the [place], transfuse 2 units when blood available, check posttransfusion CBC Heme/onc consult [place] culture IV antibiotics with ceftriaxone and azithromycin Check LDH, schistiocytes, haptoglobin, magnesium, retic count, INR Solu-Medrol 60 mg IV for now Then continue 40 twice a day, rapidly taper Nothing by mouth for now, get swallow eval IV fluids 2 bags, at 50 mL an hour, frequent lung auscultation given his history of low ejection fraction TRC evaluation Continue SSRIs, Parkinson meds Recheck BEP in the next few hours, making sure that the creatinine and potassium both have improved Nothing by mouth Pain pathway Full code, discussed with As Ranked By This Provider Problem List: 1. Confusion 2. Hypothyroidism 3. Renal insufficiency 4. Thrombocytopenia Core Measures/Miscellaneous Acute Coronary Syndrome ACS Diagnosis: No Cerebrovascular Accident CVA/TIA Diagnosis: No Congestive Heart Failure CHF Diagnosis: No Venous Thromboembolism VTE Risk Factors: Age > 40 [facility] prophylaxis d/t: No contraindications No VTE Pharm Prophylaxis d/t: Active bleeding VTE Diagnosis: No VTE Type: NONE VTE Confirmed by (Test): NONE Severe Sepsis Severe Sepsis Present: No Septic Shock Septic Shock Present: No Miscellaneous Documentation Attending Case Discussed With: DR. GONZALEZ Primary Care Physician: GUS SOLORIO MD Patient sees these Specialists DR. CHAMBERS- CARDIO- DR. MONZON- NEUROLOGIST DR. MAS- ONCOLOGIST DR. BALES- GI Level of Patient Care: General Medicine Resident Review Statement Resident Statement: examined this patient, discussed with video editing intern BLAKE GONZALEZ MD 08/21/16 1340: Attending MD Review Statement Attending Statement Attending MD Statement: examined this patient, discuss w/resident/PA/NURSE LDR, agreed w/resident/PA/NURSE LDR, discussed with family, reviewed EMR data (avail), discussed with nursing, reviewed images Attending Assessment/Plan: 86-year-old male with past medical history of Parkinson/Cortico basal degeneration, dementia and a cardiomyopathy with an EF of 35% with the pacer/ AICD. He also has a diagnosis of CLL followed by oncology for the past 2 years and as per his on no treatment. He is here with multiple medical problems including severe anemia, macrocytosis, leukocytosis that's primarily lymphocytic in nature but with a fever 102 in the ambulance and acute kidney injury and hyperkalemia. He is delirious and most of the history and everything was obtained from the . At this point, I am truly worried about him. I feel that the anemia is multifactorial. He is having bright red blood per rectum so obviously the element of blood loss is there and will keep him nothing by mouth, type and screen him and give him 2 units of blood but I think given the macrocytosis and the underlying CLL with the elevated LDH and bili a possibility of an autoimmune hemolytic anemia also exists and will get a reticulocyte count and urgent heme consult and follow-up. In addition the blood bank is having a hard time cross-matching because of the antibodies and is going to be a good 2-3 hours before they find the blood for him. Given his cardiomyopathy and his low EF will get a troponin now. His EKG is hard to interpret given its paced. Will trend another troponin later as I worry that the acute anemia is essentially a stress test for him. We'll also have to be very careful about CHF and giving him the blood. Right now he appears dehydrated and is anthony with hyperkalemia is gently getting hydrated and will need to repeat his Bun/Cre and K later today. He certainly has an infection, the question is where? The CT chest shows the lung opacities are chronic in nature. The flu swab is negative and his UA is negative. We have drawn blood cultures and will cover him with ceftriaxone and azithromycin for now as he is not neutropenic. Given his thrombocytopenia, will check coags and put him on Alps for DVT prophylaxis. Confirmed with his that he is a full code and spoke to her at length about how sick he is. He will go to the ICU. TTS 43 minutes
--- NOTE | 2016-08-21 12:00 | NUR ---
RT AT BEDSIDE.
[2016-08-21 12:12] LABS: RED BLOOD CELL CT 1.45 /CUMM (4.70-6.10)
--- NOTE | 2016-08-21 12:40 | NUR ---
FLU SWAB SENT.
--- NOTE | 2016-08-21 12:44 | NUR ---
REPORT TO RN ON 2NA. TRANSPORT BOOKED.
--- NOTE | 2016-08-21 13:22 | Admission Certification ---
Admission Certification Certification Statement - As attending physician, I certify that at the time of - admission, based on clinical presentation, severity of - symptoms, need for further diagnostic testing and - therapeutic interventions, and risk of adverse outcomes - without in-hospital treatment, in my clinical assessment, - this patient requires an acute hospital stay for a minimum - of two nights or longer. I have also considered psychsocial - factors such as support system, advanced age, financial - issues, cognitive issues, and failed out-patient treatments, - past re-admission history, safety of patient, and lack of - compliance as applicable. Specific rationale supporting this admission is: Severe anemia and fever in a patient with CLL and Parkinson's disease.
--- NOTE | 2016-08-21 13:40 | NUR ---
PT UPGRADED TO ICU PER DR SANCHES.
--- NOTE | 2016-08-21 13:50 | NUR ---
SWALLOW EVAL IN PROGRESS.
--- NOTE | 2016-08-21 13:53 | NUR ---
PT HAS BED ASSIGNMENT 105. RN NOTIFIED.
--- NOTE | 2016-08-21 14:10 | NUR ---
PER SPEECH THERAPY PT CAN HAVE THIN LIQUIDS, GROUND MECHANICAL SOFT FOOD. AWAITING NEW DIETARY ORDER. Informed waiting has been performed.
[2016-08-21 14:32] LABS: PT 13.5 SEC (9.4-12.5)
--- NOTE | 2016-08-21 14:33 | NUR ---
ORDERED PT HEART HEALTHY DIET, GROUND MECHANICAL SOFT FOOD.
--- NOTE | 2016-08-21 14:48 | NUR ---
PT TO ICU VIA STRETCHER WITH THIS RN AND TRANSPORT ON MONITOR. ALL PAPERWORK SENT. CLINICAL STATUS UNCHANGED. AT BESIDE.
[2016-08-21 15:00] VITALS: BP 116/58
[2016-08-21 16:00] VITALS: BP 120/62
--- NOTE | 2016-08-21 17:05 | Cons- Gastroenterology ---
General Information and HPI Consulting Request Date of Consult: 08/21/16 Requested By: CARLOS TRUONG,BLAKE Pimentel Reason for Consult: Called today to assess anemia in the setting of CLL, with OB negative stool x 2. Source of Information: patient, old records Exam Limitations: confusion, dementia History of Present Illness: 86 y/o male, with history of CLL diagnosed 2014 without chemotherapy (previously followed for Heme by Dr. Vásquez), asthma, diverticulosis coli, Parkinson's, dementia, cardiomyopathy with low EF, post AICD/PPM, intermittent mild renal insufficiency, radical prostatectomy > 20 years ago for prostate CA, LLL wedge resection 12/2010 for moderately differentiated adeno Ca lung (w/o CTX), presenting to the [facility] ER earlier this morning, BIBA, with stating he "had not been himself for the past few days." The patient was hemodynamically stable with O2 sat 2L- 94%. He initially had T 99, later spiking to 100.7. The patient was guaiac negative x 2 on admission. His Parkinson's was getting worse. He was found to be profoundly anemic in the ER, with H/H 4/16 (see labs) , with leukocytosis, lymphocytosis, and mild thrombocytopenia, keeping in mind his CLL. *Apparently, his oncology labs in 04/2016 showed Hgb 12. At various times, the patient's told the ER that the patient had scant rectal bleeding post defecation over the past week, and occasional "dark stool". Having stated that, he is on outpatient iron 325 mg daily, which could have accounted for the above. There was no reported hematemesis or spontaneous lower GI bleeding. He is on ASA 81 mg daily & PPI (Omeprazole 40 mg daily), but was not taking NSAIDS. *The patient is unable to give any further meaningful history, due to his poor mental status. He is O x 1 (person). I am unable to get any additional GI review of systems, but there reportedly is a history of GERD, on PPI. There was no reported gross hematuria, hemoptysis, epistaxis, or gum bleeding. *The case was discussed with Dr. Foster, of hematology, & there is concern for possible superimposed GI bleed and/or hemolysis on top of the CLL, despite the OB- negative stool x 2. Per hematology, the peripheral smear looked relatively stable. The patient was put on IV Ceftriaxone and Azithromycin, as per the medical team to cover his lungs, as well as IV Solumedrol for his asthma. *The patient has had numerous endoscopic procedures by Dr. Dean Herman. Apparently, there is a family history of colon cancer. 01/29/2013: Colonoscopy to the cecum per Dr. Torres- extensive pandiverticulosis coli, angulated sigmoid, old tatoo sites in the right colon. Biopsies of the right colon then revealed acute inflammation and erosion without malignancy. 01/28/2010: EGD per Dr. Luisa Herman- duodenal biopsies negative, mild chronic antral gastritis/mild chronic fundic gastritis, HP-negative. 09/08/2008: Colonoscopy per Dr. Farley- hyperplastic polyp 09/08/2008: EGD per Dr. Farley- moderate chronic antral gastritis/chronic fundic gastriris, bith H. pylori positve (treated with ? regimen then) 08/25/10: stool Ag H. pylori- negative (implying erradication). 10/29/2006: Colonoscopy per Dr. Luisa Herman- benign adenomas removed, diverticulosis coli. 08/06/2003: Colonoscopy per Dr. Luisa Herman- benign tubular adenoma and hyperplastic polyp removed, sigmoid diverticulosis coli. 02/09/14: Fe 58, TIBC 368, ferritin 36.3 08/21/16: Admission labs- CBC 22.1 (21S/2B/74L/2M/1E), H/H 4.8/15.1, MCV 104.3, PLT 97, retic 12.49, Pt 13.5, INR 1.29, U/A- no microcopic hematuria, gluclose 118, BUN/Cr 41/1.6, GFR 41, Na 138, K 5.3, HCO3 21, AG 9, lactate < 0.5, Ca 8.2, albumin 4.1, globulin 1.9, TBil 2.0, DBil 0.7, alk phos 59, AST 23, ALT 28, LDH 710, troponin .06, TSH 3.91, low normal B12 252, folate 16.2 08/21/10: *Haptoglobin- pending. 08/21/16: EKG- atrial paced rhythm @ 85 08/21/16: CT CHEST, ABDOMEN AND PELVIS WITHOUT IV CONTRAST- 1. Patchy nodular groundglass opacity left upper lobe and focal patchy groundglass opacity right lower lobe. Although they represent a new finding compared to recent prior CT chest, somewhat similar appearance was seen on the older examinations. This waxing and waning pattern can be seen with patchy pneumonitis or other infectious etiology. Given the history of neoplasm, close monitoring is recommended. 2. Increasing pleural thickening and pleural-based opacity left lower lobe and to lesser extent right lower lobe represent evolving bibasilar infiltrates in the appropriate clinical setting. Clinical correlation and follow-up CT chest after treatment recommended. 3. Increasing mediastinal brady enlargement likely representing reactive inflamed nodes. However, given the patient's history early metastatic involvement cannot be excluded. 4. Gross splenomegaly. 5. No evidence of diverticulitis. Colonic diverticulosis. Allergies/Medications Allergies: Coded Allergies: NO KNOWN ALLERGIES (07/20/14) Home Med List: Aspirin (Children's Aspirin) 81 MG TAB.CHEW 1 TAB PO DAILY HEART HEALTH ( Reported) Budesonide/Formoterol Fumarate (Symbicort 160-4.5 Mcg Inhaler) 160 MCG-4.5 MCG/ ACTUATION HFA.AER.AD 2 PUF INH BID BREATHING PROBLEMS (Reported) Clonazepam 0.5 MG TABLET 1 TAB PO DAILY ANTIVIRAL (Reported) Ferrous Sulfate (Ferosul) 325 MG (65 MG IRON) TABLET 1 TAB PO DAILY SUPPLEMENT (Reported) Levothyroxine Sodium 25 MCG TABLET 1 TAB PO DAILY THYROID (Reported) Memantine HCl (Namenda) 10 MG TABLET 1 TAB PO BID DEMENTIA (Reported) Omeprazole 40 MG CAPSULE.DR 1 CAP PO DAILY GI (Reported) Quetiapine Fumarate 25 MG TABLET 1 TAB PO QPM MENTAL HEALTH (Reported) Rivastigmine (Exelon) 13.3 MG/24 HOUR PATCH.TD24 1 PAT TOP DAILY DEMENTIA ( Reported) Sertraline HCl (Zoloft) 100 MG TABLET 2 TAB PO DAILY DEPRESSION (Reported) Current Medications: Current Medications Sig/Pita Start time Last Medication Dose Route Stop Time Status Admin Albuterol Sulfate 3 ML ONCE ONE 08/21 1145 DC 08/21 INH 08/21 1146 1204 Azithromycin 500 MG DAILY 08/22 1000 AC Sodium Chloride 250 ML IV Azithromycin 500 MG ONCE ONE 08/21 1015 DC 08/21 Sodium Chloride 250 ML IV 08/21 1114 1100 Budesonide/ 2 PUF BID 08/21 2200 AC Formoterol Fumarate INH Ceftriaxone Sodium 1,000 MG DAILY 08/22 1000 AC IV Ceftriaxone Sodium 0 .STK-MED ONE 08/21 1058 DC .ROUTE Ceftriaxone Sodium 1,000 MG ONCE ONE 08/21 1015 DC 08/21 IV 08/21 1016 1100 Ipratropium [place] 2.5 ML ONCE ONE 08/21 1145 DC 08/21 INH 08/21 1146 1204 Levothyroxine Sodium 0.025 MG DAILY 08/22 1000 AC PO Memantine 10 MG BID 08/21 2200 AC PO Methylprednisolone 40 MG Q12 08/21 2200 AC IV Methylprednisolone 0 .STK-MED ONE 08/21 1221 DC .ROUTE Methylprednisolone 60 MG ONCE ONE 08/21 1215 DC 08/21 IV 08/21 1216 1215 Pantoprazole Sodium 0 .STK-MED ONE 08/21 1215 DC IV Pantoprazole Sodium 40 MG BID 08/21 1201 AC 08/21 IV 1215 Quetiapine Fumarate 25 MG QPM 08/21 2200 AC PO Rivastigmine 13.8 MG Q24 08/22 1000 AC TOP Sertraline HCl 200 MG DAILY 08/22 1000 AC PO Sodium Chloride 1,000 ML ONCE ONE 08/21 1200 AC 08/21 IV 08/22 0119 1215 Sodium Chloride 1,000 ML ONCE ONE 08/21 0745 DC 08/21 IV 08/21 1424 0800 Past History Travel History Traveled to April past 21 day No Medical History Blood Transfusion Hx: Yes Neurological: Parkinson's disease, dementia EENT: NONE Cardiovascular: cardiomyopathy, LOW EF S/P AICD/ PACEMAKER PLACEMENT Respiratory: asthma, adenocarcioma s/p LLL wedge resection Gastrointestinal: ACID REFLUX Hepatic: NONE Renal: intermittent mild renal insuff Musculoskeletal: NONE Psychiatric: anxiety, depression Endocrine: NONE Blood Disorders: CLL Cancer(s): leukemia, lung cancer (LLL wedge resection adenoCa), prostate cancer, 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 Home Who Do You Live With? spouse Services at Home: None Primary Language: Japanese (demented) Smoking Status: Former Smoker ETOH Use: unknown Illicit Drug Use: denies illicit drug use (per chart) Living Will? no Power of Frothing Machine Operator/HCP? yes Name of POA/HCP: pt's , Kandis Faust [phone] Other Social History: . Lives with , Kandis. Retired [employer]. Ex-smoker. No drugs. EtOH unknown. No further hx available. Functional Ability ADLs Needs Assist: dressing, eating, toileting, bathing. Ambulation: unknown IADLs Needs Assist: shopping, housework, finances, food prep, telephone, transportation, medication admin. Employment History Employment: Retired Profession/Employer: [employer] ECHO Results (as available) Date of last Echo 01/23/11 EF% 35 Review of Systems Review of Systems: Full 14 point review of systems currently unobtainable from patient. Review of Systems All Other Systems: Reviewed and Negative (unobtainable from patient) Exam & Diagnostic Data Vital Signs and I&O Vital Signs Date Time Temp Pulse Resp B/P Pulse O2 O2 Flow FiO2 Ox Delivery Rate 08/21 1600 96 Nasal 3.0L Cannula 08/21 1600 98.5 87 26 120/62 99 Nasal 3.0L Cannula 08/21 1500 100.5 93 18 116/58 99 Nasal 4.0L Cannula 08/21 1500 99 Nasal 4.0L Cannula 08/21 1423 100.7 88 24 112/80 99 Nasal 4.0L Cannula 08/21 1250 98.5 89 20 112/70 94 Nasal 2.0L Cannula 08/21 1222 99 Nasal 1.0L Cannula 08/21 1034 98.9 86 16 119/54 100 Nasal 2.0L Cannula 08/21 0807 98.8 80 20 111/55 95 Nasal 2.0L Cannula 08/21 0648 94 Nasal 2.0L Cannula 08/21 0618 99.0 84 16 129/58 94 Nasal 2.0L Cannula Intake & Output 08/21 1600 08/21 0400 08/20 1600 08/20 0400 08/19 1600 08/19 0400 Intake Total 0 Output Total Balance 0 Intake, Oral 0 Patient 160 lb Weight Physical Exam: Well-developed, well-nourished male, pleasantly confused in no apparent distress. Sclera anicteric. Conjunctiva pink. Oropharynx clear. No oral thrush. No aphthous ulcers. There is no adenopathy, thyromegaly, or JVD. No peripheral stigmata of inflammatory bowel disease or chronic liver disease on exam. No CVA tenderness. No spiders on the anterior chest wall. No gynecomastia. Lungs: Scattered wheezing bilaterally, with a few bibasilar crackles & decreased BS at the left base. AICD/PPM in left chest wall. Heart exam: regular rate rhythm, S1 and S2, with soft systolic murmur. Abdominal exam: normal bowel sounds, soft belly, nontender, without guarding or rebound. No mass. No hepatomegaly. Positive palpable spleen tip. No fluid shift. No pulsatile mass. Digital rectal exam x 2 on admission 08/21/16: brown stool, OB-negative. Extremities: without C, C, or E. No palpable cords. + DJD. No rash. Distal pulses 2+ bilaterally. DTRs 2+ bilaterally. Alert and oriented x 1 (person). Intention tremor. Parkinson's. Results Pertinent Lab Results: Laboratory Tests 08/21 08/21 08/21 08/21 08/21 1700 1415 1410 1313 1040 Chemistry Sodium (137 - 145 mmol/L) Cancelled 138 Potassium (3.5 - 5.1 mmol/L) Cancelled 5.3 H Chloride (98 - 107 mmol/L) Cancelled 108 H Carbon Dioxide (22 - 30 mmol/L) Cancelled 21 L Anion Gap (5 - 16) Cancelled 9 BUN (9 - 20 mg/dL) Cancelled 41 H Creatinine (0.7 - 1.2 mg/dL) Cancelled 1.6 H Estimated GFR (>60 ml/min) 41 L BUN/Creatinine Ratio (7 - 25 %) Cancelled 25.6 H Lactic Acid (0.7 - 2.1 mmol/L) Cancelled < 0.5 L Troponin I (<0.11 ng/ml) 0.06 Coagulation PT (9.4 - 12.5 SEC) 13.5 H INR (0.90 - 1.17) 1.29 H 08/21 08/21 0813 0741 Chemistry Sodium (137 - 145 mmol/L) 139 Potassium (3.5 - 5.1 mmol/L) 5.6 H Chloride (98 - 107 mmol/L) 107 Carbon Dioxide (22 - 30 mmol/L) 26 Anion Gap (5 - 16) 6 BUN (9 - 20 mg/dL) 40 H Creatinine (0.7 - 1.2 mg/dL) 1.7 H Estimated GFR (>60 ml/min) 38 L BUN/Creatinine Ratio (7 - 25 %) 23.5 Glucose (65 - 99 mg/dL) 118 H Calcium (8.4 - 10.2 mg/dL) 8.2 L Magnesium (1.6 - 2.3 mg/dL) 2.3 Total Bilirubin (0.2 - 1.3 mg/dL) 2.0 H Direct Bilirubin (< 0.4 mg/dL) 0.7 H AST (17 - 59 U/L) 23 ALT (21 - 72 U/L) 28 Alkaline Phosphatase (< 127 U/L) 59 Lactate Dehydrogenase (313 - 618 U/L) 710 H Troponin I (<0.11 ng/ml) 0.03 Total Protein (6.3 - 8.2 g/dL) 6.0 L Albumin (3.5 - 5.0 g/dL) 4.1 Globulin (1.9 - 4.2 gm/dL) 1.9 Albumin/Globulin Ratio (1.1 - 2.2 %) 2.2 Vitamin B12 (239 - 931 pg/mL) 252 Folate (2.76 - 20.0 ng/mL) 16.2 TSH (0.270 - 4.200 uIU/mL) 3.910 Free T4 (0.85 - 1.93 ng/dL) 0.89 Hematology CBC w Diff MAN DIFF ORDERED WBC (4.8 - 10.8 /CUMM) 22.1 H RBC (4.70 - 6.10 /CUMM) 1.45 L Hgb (14.0 - 18.0 G/DL) 4.8 *L Hct (42 - 52 %) 15.1 *L MCV (80.0 - 94.0 FL) 104.3 H MCH (27.0 - 31.0 PG) 33.2 H RDW (11.5 - 14.5 %) 17.2 H Plt Count (130 - 400 /CUMM) 97 L MPV (7.4 - 10.4 FL) 7.6 Gran % (42.2 - 75.2 %) 20.4 L Lymphocytes % (20.5 - 51.1 %) 74.5 H Monocytes % (1.7 - 9.3 %) 4.7 Eosinophils % (0 - 5 %) 0.2 Basophils % (0.0 - 2.0 %) 0.2 Absolute Granulocytes (1.4 - 6.5 /CUMM) 4.5 Segmented Neutrophils (42.2 - 75.2 %) 21 L Band Neutrophils (0.0 - 5.0 %) 2 Absolute Lymphocytes (1.2 - 3.4 /CUMM) 16.5 H Lymphocytes (20.5 - 51.1 %) 74 H Monocytes (1.7 - 9.3 %) 2 Absolute Monocytes (0.10 - 0.60 /CUMM) 1.0 H Eosinophils (0 - 5.0 %) 1 Absolute Eosinophils (0.0 - 0.7 /CUMM) 0 Absolute Basophils (0.0 - 0.2 /CUMM) 0.1 Platelet Estimate (ADEQUATE) VERIFIED BY SMEAR Poikilocytosis 1+ Anisocytosis 1+ Macrocytic Cells 1+ PUBS MCHC (33.0 - 37.0 G/DL) 31.8 L Retic Count (0.5 - 2.0 %) 12.49 H Haptoglobin Pending 08/21 08/21 0725 0500 Chemistry Sodium Cancelled Potassium Cancelled Chloride Cancelled Carbon Dioxide Cancelled Anion Gap Cancelled BUN Cancelled Creatinine Cancelled BUN/Creatinine Ratio Cancelled Urines Urine Color (YEL,AMB,STR) YEL Urine Clarity (CLEAR) CLEAR Urine pH (5.0 - 8.0) 6.0 Ur Specific [place] (1.001 - 1.035) 1.015 Urine Protein (NEG,<30 MG/DL) TRACE H Urine Ketones (NEG) NEG Urine Nitrite (NEG) NEG Urine Bilirubin (NEG) NEG Urine Urobilinogen (0.1 - 1.0 EU/dl) 0.2 Ur Leukocyte Esterase (NEG) NEG Ur Microscopic SEDIMENT EXAMINED Urine RBC (0 - 5 /HPF) RARE Urine WBC (0 - 2 /HPF) RARE Ur Epithelial Cells (NONE,FEW) RARE Urine Bacteria (NEG/NONE) RARE H Urine Mucus (FEW,NONE) MOD H Urine Hemoglobin (NEG) NEG Urine Glucose (N MG/DL) NEG Imaging/Other Studies: 08/21/16: EKG- atrial paced rhythm @ 85 08/21/16: CT CHEST, ABDOMEN AND PELVIS WITHOUT IV CONTRAST- 1. Patchy nodular groundglass opacity left upper lobe and focal patchy groundglass opacity right lower lobe. Although they represent a new finding compared to recent prior CT chest, somewhat similar appearance was seen on the older examinations. This waxing and waning pattern can be seen with patchy pneumonitis or other infectious etiology. Given the history of neoplasm, close monitoring is recommended. 2. Increasing pleural thickening and pleural-based opacity left lower lobe and to lesser extent right lower lobe represent evolving bibasilar infiltrates in the appropriate clinical setting. Clinical correlation and follow-up CT chest after treatment recommended. 3. Increasing mediastinal brady enlargement likely representing reactive inflamed nodes. However, given the patient's history early metastatic involvement cannot be excluded. 4. Gross splenomegaly. 5. No evidence of diverticulitis. Colonic diverticulosis. Assessment/Plan Assessment/Recommendations: 86 y/o male, with history of CLL diagnosed 2014 without chemotherapy (previously followed for Heme by Dr. Vásquez), asthma, diverticulosis coli, Parkinson's, dementia, cardiomyopathy with low EF, post AICD/PPM, intermittent mild renal insufficiency, radical prostatectomy > 20 years ago for prostate CA, LLL wedge resection 12/2010 for moderately differentiated adeno Ca lung (w/o CTX), presenting to the [facility] ER earlier this morning, BIBA, with stating he "had not been himself for the past few days." The patient was hemodynamically stable with O2 sat 2L- 94%. He initially had T 99, later spiking to 100.7. The patient was guaiac negative x 2 on admission. His Parkinson's was getting worse. He was found to be profoundly anemic in the ER, with H/H 4/16 (see labs) , with leukocytosis, lymphocytosis, and mild thrombocytopenia, keeping in mind his CLL. *Apparently, his oncology labs in 04/2016 showed Hgb 12. At various times, the patient's told the ER that the patient had scant rectal bleeding post defecation over the past week, and occasional "dark stool". Having stated that, he is on outpatient iron 325 mg daily, which could have accounted for the above. There was no reported hematemesis or spontaneous lower GI bleeding. He is on ASA 81 mg daily & PPI (Omeprazole 40 mg daily), but was not taking NSAIDS. *The patient is unable to give any further meaningful history, due to his poor mental status. He is O x 1 (person). I am unable to get any additional GI review of systems, but there reportedly is a history of GERD, on PPI. There was no reported gross hematuria, hemoptysis, epistaxis, or gum bleeding. *The case was discussed with Dr. Foster, of hematology, & there is concern for possible superimposed GI bleed and/or hemolysis on top of the CLL, despite the OB- negative stool x 2. Per hematology, the peripheral smear looked relatively stable. The patient was put on IV Ceftriaxone and Azithromycin, as per the medical team to cover his lungs, as well as IV Solumedrol for his asthma. *The patient has had numerous endoscopic procedures by Dr. Dean Herman. Apparently, there is a family history of colon cancer. 01/29/2013: Colonoscopy to the cecum per Dr. Torres- extensive pandiverticulosis coli, angulated sigmoid, old tatoo sites in the right colon. Biopsies of the right colon then revealed acute inflammation and erosion without malignancy. 01/28/2010: EGD per Dr. Luisa Herman- duodenal biopsies negative, mild chronic antral gastritis/mild chronic fundic gastritis, HP-negative. 09/08/2008: Colonoscopy per Dr. Farley- hyperplastic polyp 09/08/2008: EGD per Dr. Farley- moderate chronic antral gastritis/chronic fundic gastriris, bith H. pylori positve (treated with ? regimen then) 08/25/10: stool Ag H. pylori- negative (implying erradication). 10/29/2006: Colonoscopy per Dr. Luisa Herman- benign adenomas removed, diverticulosis coli. 08/06/2003: Colonoscopy per Dr. Luisa Herman- benign tubular adenoma and hyperplastic polyp removed, sigmoid diverticulosis coli. 02/09/14: Fe 58, TIBC 368, ferritin 36.3 08/21/16: Admission labs- CBC 22.1 (21S/2B/74L/2M/1E), H/H 4.8/15.1, MCV 104.3, PLT 97, retic 12.49, Pt 13.5, INR 1.29, U/A- no microcopic hematuria, gluclose 118, BUN/Cr 41/1.6, GFR 41, Na 138, K 5.3, HCO3 21, AG 9, lactate < 0.5, Ca 8.2, albumin 4.1, globulin 1.9, TBil 2.0, DBil 0.7, alk phos 59, AST 23, ALT 28, LDH 710, troponin .06, TSH 3.91, low normal B12 252, folate 16.2 08/21/10: *Haptoglobin- pending. 08/21/16: EKG- atrial paced rhythm @ 85 08/21/16: CT CHEST, ABDOMEN AND PELVIS WITHOUT IV CONTRAST- 1. Patchy nodular groundglass opacity left upper lobe and focal patchy groundglass opacity right lower lobe. Although they represent a new finding compared to recent prior CT chest, somewhat similar appearance was seen on the older examinations. This waxing and waning pattern can be seen with patchy pneumonitis or other infectious etiology. Given the history of neoplasm, close monitoring is recommended. 2. Increasing pleural thickening and pleural-based opacity left lower lobe and to lesser extent right lower lobe represent evolving bibasilar infiltrates in the appropriate clinical setting. Clinical correlation and follow-up CT chest after treatment recommended. 3. Increasing mediastinal brady enlargement likely representing reactive inflamed nodes. However, given the patient's history early metastatic involvement cannot be excluded. 4. Gross splenomegaly. 5. No evidence of diverticulitis. Colonic diverticulosis. *Multifactorial anemia in patient with numerous comorbidities. From GI perspective, past history of colon adenoma and GERD, with positive FHx of colon Ca, per chart. Unable to get review of systems from patient, secondary to dementia. The vast majority of the anemia could be from CLL. Rule out component of hemolysis. The peripheral smear is relatively stable, per oncology. Rule out superimposed GI bleed, although stools OB negative 2. There is no microscopic hematuria. There is no history of abdominal trauma to suggest a retroperitoneal bleed, nor was any seen on CT. SUGGEST: Feed patient with aspiration precautions. T&C 4u PRBC. Keep Hgb > 8 with ASHD. O2 as needed. Strict I/O's. Transfuse per hematology (apparently, the patient has a history of circulating Abs). *On Sunday08/22/16, clears po & give 1 gallon of GoLytely over 4-5 hours, then NPO after 11:59 p.m. on Sunday, , for EGD/colonoscopy on 08/23/16, per Dr. Luisa Herman, who is her usual home lending officer. ASA 81 mg daily on hold for now, if okay with cardiology. Continue PPI. Check peripheral smear & haptoglobin. The above was discussed with the medical house staff, Dr. Foster, & with Dr. Dean Herman, who will be performing the endoscopic workup. Problem List: 1. Symptomatic anemia 2. History of adenomatous polyp of colon 3. GERD (gastroesophageal reflux disease) 4. Family history of colon cancer 5. CLL (chronic lymphocytic leukemia) Copies To: ZELDA TRUONG,ANA; CARLOS TRUONG,BLAKE Pimentel; TG TRUONG,KEITH FARMER JR; EDEN TRUONG, [facility]; TRISH TRUONG,[facility]; ERIK TRUONG,DK Allen JR; AMAIRANI TRUONG,LUIS MIGUEL . Consult Acknowledgment - Thank you for your consult request.
--- NOTE | 2016-08-21 18:56 | Cons- Hematology ---
General Information and HPI Consulting Request Date of Consult: 08/21/16 Requested By: BLAKE GONZALEZ MD Reason for Consult: CLL, anemia Source of Information: family, old records Exam Limitations: clinical condition, dementia History of Present Illness: Mr. Faust is a 86-year-old male with history of CLL with splenomegaly, prostate cancer, lung cancer s/p resection, cardiomyopathy with pacemaker, Parkinson's, and COPD who presented to the hospital with a few weeks of worsening AMS, tremors, and fatigue. Per Mrs. Faust (Kandis), the patient has been declining recently but more so over the 4 days. He is normally not oriented and is forgetful at times. This has progressively worsened. He has also been noted to be more pale. He has not been sick recently. He did not have any fever or chills until coming to the ED. In the ED, he was noted to have blood work demonstrating hemoglobin of 4.8, hematocrit of 15.1%, and platelet of 97,000. CT of the chest, abdomen, and pelvis demonstrated patchy nodular groundglass opacity in the left upper lobe and focal patchy groundglass opacity in the right lower lobe. Increasing mediastinal brady enlargement likely representing reactive inflamed nodes, and gross splenomegaly. Creatinine is slightly increased from baseline at 1.6. Bilirubin is 2.0 with direct of 0.7. LDH is elevated at 710. Reticulocyte count is elevated at 12.49. Haptoglobin is pending. Per the , the patient has not had any bleeding but does not dark stool. Patient does take iron at home. He has not had any other bleeding. He does bruises easily. His urine is yellow/honey colored. He does have some difficulty with breathing at times with his COPD. Allergies/Medications Allergies: Coded Allergies: NO KNOWN ALLERGIES (07/20/14) Home Med List: Aspirin (Children's Aspirin) 81 MG TAB.CHEW 1 TAB PO DAILY HEART HEALTH ( Reported) Budesonide/Formoterol Fumarate (Symbicort 160-4.5 Mcg Inhaler) 160 MCG-4.5 MCG/ ACTUATION HFA.AER.AD 2 PUF INH BID BREATHING PROBLEMS (Reported) Clonazepam 0.5 MG TABLET 1 TAB PO DAILY ANTIVIRAL (Reported) Ferrous Sulfate (Ferosul) 325 MG (65 MG IRON) TABLET 1 TAB PO DAILY SUPPLEMENT (Reported) Levothyroxine Sodium 25 MCG TABLET 1 TAB PO DAILY THYROID (Reported) Memantine HCl (Namenda) 10 MG TABLET 1 TAB PO BID DEMENTIA (Reported) Omeprazole 40 MG CAPSULE. 1 CAP PO DAILY GI (Reported) Quetiapine Fumarate 25 MG TABLET 1 TAB PO QPM MENTAL HEALTH (Reported) Rivastigmine (Exelon) 13.3 MG/24 HOUR PATCH.TD24 1 PAT TOP DAILY DEMENTIA ( Reported) Sertraline HCl (Zoloft) 100 MG TABLET 2 TAB PO DAILY DEPRESSION (Reported) Current Medications: Current Medications Sig/Pita Start time Last Medication Dose Route Stop Time Status Admin Albuterol Sulfate 3 ML ONCE ONE 08/21 1145 DC 08/21 INH 08/21 1146 1204 Azithromycin 500 MG DAILY 08/22 1000 AC Sodium Chloride 250 ML IV Azithromycin 500 MG ONCE ONE 08/21 1015 DC 08/21 Sodium Chloride 250 ML IV 08/21 1114 1100 Budesonide/ 2 PUF BID 08/21 2200 AC Formoterol Fumarate INH Ceftriaxone Sodium 1,000 MG DAILY 08/22 1000 AC IV Ceftriaxone Sodium 0 .STK-MED ONE 08/21 1058 DC .ROUTE Ceftriaxone Sodium 1,000 MG ONCE ONE 08/21 1015 DC 08/21 IV 08/21 1016 1100 Ipratropium Atkins 2.5 ML ONCE ONE 08/21 1145 DC 08/21 INH 08/21 1146 1204 Levothyroxine Sodium 0.025 MG DAILY 08/22 1000 AC PO Memantine 10 MG BID 08/21 2200 AC PO Methylprednisolone 40 MG Q12 08/21 2200 AC IV Methylprednisolone 0 .STK-MED ONE 08/21 1221 DC .ROUTE Methylprednisolone 60 MG ONCE ONE 08/21 1215 DC 08/21 IV 08/21 1216 1215 Pantoprazole Sodium 0 .STK-MED ONE 08/21 1215 DC IV Pantoprazole Sodium 40 MG BID 08/21 1201 AC 08/21 IV 1215 Quetiapine Fumarate 25 MG QPM 08/21 2200 AC PO Rivastigmine 13.8 MG Q24 08/22 1000 AC TOP Sertraline HCl 200 MG DAILY 08/22 1000 AC PO Sodium Chloride 1,000 ML ONCE ONE 08/21 1200 AC 08/21 IV 08/22 0119 1215 Sodium Chloride 1,000 ML ONCE ONE 08/21 0745 DC 08/21 IV 08/21 1424 0800 Review of Systems Review of Systems: Unable to be obtained due to mental status Past History Travel History Traveled to [place] past 21 day No Medical History Blood Transfusion Hx: No Neurological: Parkinson's disease, dementia EENT: NONE Cardiovascular: cardiomyopathy, LOW EF S/P PACEMAKER PLACEMENT Respiratory: asthma, adenocarcioma s/p resection Gastrointestinal: ACID REFLUX Hepatic: NONE Renal: NONE Musculoskeletal: NONE Psychiatric: anxiety, depression Endocrine: NONE Blood Disorders: NONE Cancer(s): leukemia, prostate cancer, 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 Home Who Do You Live With? spouse Services at Home: None Smoking Status: Former Smoker Functional Ability Ambulation: independent Exam & Diagnostic Data Vital Signs and I&O Vital Signs Date Time Temp Pulse Resp B/P Pulse O2 O2 Flow FiO2 Ox Delivery Rate 08/21 1600 96 Nasal 3.0L Cannula 08/21 1600 98.5 87 26 120/62 99 Nasal 3.0L Cannula 08/21 1500 100.5 93 18 116/58 99 Nasal 4.0L Cannula 08/21 1500 99 Nasal 4.0L Cannula 08/21 1423 100.7 88 24 112/80 99 Nasal 4.0L Cannula 08/21 1250 98.5 89 20 112/70 94 Nasal 2.0L Cannula 08/21 1222 99 Nasal 1.0L Cannula 08/21 1034 98.9 86 16 119/54 100 Nasal 2.0L Cannula 08/21 0807 98.8 80 20 111/55 95 Nasal 2.0L Cannula 08/21 0648 94 Nasal 2.0L Cannula 08/21 0618 99.0 84 16 129/58 94 Nasal 2.0L Cannula Intake & Output 08/21 1600 08/21 0800 08/21 0000 Intake Total 0 Output Total Balance 0 Intake, Oral 0 Patient 72.717 kg 72.575 kg Weight Physical Exam General Appearance: awake Head: dry, flaky, plaques in the hair line Eyes: Bilateral: PERRL. Ears, Nose, Throat: normal pharynx Neck: JVD Respiratory: chest non-tender, decreased breath sounds, wheezing Cardiovascular: regular rate/rhythm Gastrointestinal: normal bowel sounds, distention, splenomegaly Extremities: no edema Neurologic/Psych: awake, disoriented x 3, tremors in the upper and lower extremities Skin: pallor Lymphatic: adenopathy Last 48 Hours of Lab Results: Laboratory Tests 08/21 08/21 08/21 08/21 08/21 1820 1700 1415 1410 1313 Chemistry Sodium (137 - 145 mmol/L) Pending Cancelled 138 Potassium (3.5 - 5.1 mmol/L) Pending Cancelled 5.3 H Chloride (98 - 107 mmol/L) Pending Cancelled 108 H Carbon Dioxide (22 - 30 mmol/L) Pending Cancelled 21 L Anion Gap (5 - 16) Pending Cancelled 9 BUN (9 - 20 mg/dL) Pending Cancelled 41 H Creatinine (0.7 - 1.2 mg/dL) Pending Cancelled 1.6 H Estimated GFR (>60 ml/min) 41 L BUN/Creatinine Ratio (7 - 25 %) Cancelled 25.6 H Glucose Pending Lactic Acid Cancelled Calcium Pending Phosphorus Pending Magnesium Pending Total Bilirubin Pending AST Pending ALT Pending Troponin I (<0.11 ng/ml) 0.06 Albumin Pending Coagulation PT (9.4 - 12.5 SEC) 13.5 H INR (0.90 - 1.17) 1.29 H Hematology CBC w Diff Pending WBC Pending RBC Pending Hgb Pending Hct Pending MCV Pending MCH Pending RDW Pending Plt Count Pending MPV Pending PUBS MCHC Pending 08/21 08/21 08/21 1040 0813 0741 Chemistry Sodium (137 - 145 mmol/L) 139 Potassium (3.5 - 5.1 mmol/L) 5.6 H Chloride (98 - 107 mmol/L) 107 Carbon Dioxide (22 - 30 mmol/L) 26 Anion Gap (5 - 16) 6 BUN (9 - 20 mg/dL) 40 H Creatinine (0.7 - 1.2 mg/dL) 1.7 H Estimated GFR (>60 ml/min) 38 L BUN/Creatinine Ratio (7 - 25 %) 23.5 Glucose (65 - 99 mg/dL) 118 H Lactic Acid (0.7 - 2.1 mmol/L) < 0.5 L Calcium (8.4 - 10.2 mg/dL) 8.2 L Magnesium (1.6 - 2.3 mg/dL) 2.3 Total Bilirubin (0.2 - 1.3 mg/dL) 2.0 H Direct Bilirubin (< 0.4 mg/dL) 0.7 H AST (17 - 59 U/L) 23 ALT (21 - 72 U/L) 28 Alkaline Phosphatase (< 127 U/L) 59 Lactate Dehydrogenase (313 - 618 U/L) 710 H Troponin I (<0.11 ng/ml) 0.03 Total Protein (6.3 - 8.2 g/dL) 6.0 L Albumin (3.5 - 5.0 g/dL) 4.1 Globulin (1.9 - 4.2 gm/dL) 1.9 Albumin/Globulin Ratio (1.1 - 2.2 %) 2.2 Vitamin B12 (239 - 931 pg/mL) 252 Folate (2.76 - 20.0 ng/mL) 16.2 TSH (0.270 - 4.200 uIU/mL) 3.910 Free T4 (0.85 - 1.93 ng/dL) 0.89 Hematology CBC w Diff MAN DIFF ORDERED WBC (4.8 - 10.8 /CUMM) 22.1 H RBC (4.70 - 6.10 /CUMM) 1.45 L Hgb (14.0 - 18.0 G/DL) 4.8 *L Hct (42 - 52 %) 15.1 *L MCV (80.0 - 94.0 FL) 104.3 H MCH (27.0 - 31.0 PG) 33.2 H RDW (11.5 - 14.5 %) 17.2 H Plt Count (130 - 400 /CUMM) 97 L MPV (7.4 - 10.4 FL) 7.6 Gran % (42.2 - 75.2 %) 20.4 L Lymphocytes % (20.5 - 51.1 %) 74.5 H Monocytes % (1.7 - 9.3 %) 4.7 Eosinophils % (0 - 5 %) 0.2 Basophils % (0.0 - 2.0 %) 0.2 Absolute Granulocytes (1.4 - 6.5 /CUMM) 4.5 Segmented Neutrophils (42.2 - 75.2 %) 21 L Band Neutrophils (0.0 - 5.0 %) 2 Absolute Lymphocytes (1.2 - 3.4 /CUMM) 16.5 H Lymphocytes (20.5 - 51.1 %) 74 H Monocytes (1.7 - 9.3 %) 2 Absolute Monocytes (0.10 - 0.60 /CUMM) 1.0 H Eosinophils (0 - 5.0 %) 1 Absolute Eosinophils (0.0 - 0.7 /CUMM) 0 Absolute Basophils (0.0 - 0.2 /CUMM) 0.1 Platelet Estimate (ADEQUATE) VERIFIED BY SMEAR Poikilocytosis 1+ Anisocytosis 1+ Macrocytic Cells 1+ PUBS MCHC (33.0 - 37.0 G/DL) 31.8 L Retic Count (0.5 - 2.0 %) 12.49 H Haptoglobin Pending 08/21 08/21 0725 0500 Chemistry Sodium Cancelled Potassium Cancelled Chloride Cancelled Carbon Dioxide Cancelled Anion Gap Cancelled BUN Cancelled Creatinine Cancelled BUN/Creatinine Ratio Cancelled Urines Urine Color (YEL,AMB,STR) YEL Urine Clarity (CLEAR) CLEAR Urine pH (5.0 - 8.0) 6.0 Ur Specific Lewis (1.001 - 1.035) 1.015 Urine Protein (NEG,<30 MG/DL) TRACE H Urine Ketones (NEG) NEG Urine Nitrite (NEG) NEG Urine Bilirubin (NEG) NEG Urine Urobilinogen (0.1 - 1.0 EU/dl) 0.2 Ur Leukocyte Esterase (NEG) NEG Ur Microscopic SEDIMENT EXAMINED Urine RBC (0 - 5 /HPF) RARE Urine WBC (0 - 2 /HPF) RARE Ur Epithelial Cells (NONE,FEW) RARE Urine Bacteria (NEG/NONE) RARE H Urine Mucus (FEW,NONE) MOD H Urine Hemoglobin (NEG) NEG Urine Glucose (N MG/DL) NEG Imaging/Other Studies: CT chest/abdomen/pelvis 08/21/2016: 1. Patchy nodular groundglass opacity left upper lobe and focal patchy groundglass opacity right lower lobe. Although they represent a new finding compared to recent prior CT chest, somewhat similar appearance was seen on the older examinations. This waxing and waning pattern can be seen with patchy pneumonitis or other infectious etiology. Given the history of neoplasm, close monitoring is recommended. 2. Increasing pleural thickening and pleural-based opacity left lower lobe and to lesser extent right lower lobe represent evolving bibasilar infiltrates in the appropriate clinical setting. Clinical correlation and follow-up CT chest after treatment recommended. 3. Increasing mediastinal brady enlargement likely representing reactive inflamed nodes. However, given the patient's history early metastatic involvement cannot be excluded. 4. Gross splenomegaly. 5. No evidence of diverticulitis. Colonic diverticulosis. Assessment/Plan Assessment: Mr. Faust is an 86-year-old male with CLL with splenomegaly and mild thrombocytopenia, CAD, CHF, pacemaker, lung cancer s/p resection, prostate cancer s/p prostatectomy, Parkinson's, and COPD who presents to the hospital with AMS and severe anemia. He is currently on antibiotics wit azithromycin and ceftriaxone for CAP. He is on Solu-Medrol 40 mg BID (60 mg in ED) for his wheezing. Stool guaiac was reportedly negative in ED. His hemoglobin is 4.9 currently with hematocrit of around 15. Blood work have demonstrated mildly elevated bilirubin at 2 (direct of 0.7), LDH at 710, and reticulocytes count of 12. Haptoglobin is pending. His urine is negative for hemoglobin. CT scan demonstrated splenomegaly. His platelet is close to baseline at around 97,000. Peripheral smear demonstrated atypical lymphocyte, lymphocytosis, reticulocytes, basophilic stippling, rare nucleated RBC, tear drop cells, and rare large platelets. On review of his previous records in April 2016, he was seen by Dr. Vásquez. His creatine was 1.4 at that time. His hemoglobin was 12.0, hematocrit was 37.3, and platelet was 116,000. SPEP was negative at that time. PSA was negative. Bilirubin was 0.5. Currently he is being workup for possible GI bleeding. In addition, he is also being worked up for CLL related anemia. He does have some features suggestive of AIHA iwht LDH and reticulocytosis. His is bilirubin is lower than one would expect for his degree of anemia. He may have underlying anemia from blood loss. He is already receiving therapy for possible AIHA with the Solu-Medrol for his underlying COPD/Asthma. This can be continued for now. He should improved with the steroid. SALVADOR is pending still. He should have his CBC, bilirubin, and LDH monitored closely. He is getting transfused with 2 units of pRBC. Of note his B12 level is lower end fo normal. May consider sending MMA evluation. Recommendations: 1. Repeat CBC, LDH, Bilirubin at least daily 2. Follow up GI recommendation regarding possible endoscopy/colonoscopy 3. Follow up haptoglobin 4. Follow up SALVADOR 5. Transfuse with goal hemoglobin >8 6. Continue Solu-Medrol 40 mg BID 7. Evaluate MMA Problem List: 1. CAD 2. Cardiomyopathy 3. Asthma 4. Dementia 5. CLL (chronic lymphocytic leukemia) 6. Symptomatic anemia 7. Thrombocytopenia Other Findings/Comments: Please call [phone] with any questions or concerns. Consult Acknowledgment - Thank you for your consult request.
[2016-08-21 18:59] LABS: ABSOLUTE BASOPHIL COUNT 0.2 /CUMM (0.0-0.2); ABSOLUTE EOSINOPHIL COUNT 0 /CUMM (0.0-0.7); ABSOLUTE GRANULOCYTE CT 8.1 /CUMM (1.4-6.5); ABSOLUTE LYMPH COUNT 48.8 /CUMM (1.2-3.4); ABSOLUTE MONOCYTE COUNT 1.7 /CUMM (0.10-0.60); BASOPHIL % 0.3 % (0.0-2.0); EOSINOPHIL % 0.1 % (0-5); GRANULOCYTE % 13.8 % (42.2-75.2); MEAN CORPUSCULAR HGB CONC 29.9 G/DL (33.0-37.0); MEAN CORPUSCULAR VOLUME 107.1 FL (80.0-94.0); MEAN PLATELET VOLUME 8.3 FL (7.4-10.4); PLATELET COUNT 125 /CUMM (130-400); RBC DISTRIBUTION WIDTH 17.1 % (11.5-14.5); RED BLOOD CELL CT 1.56 /CUMM (4.70-6.10)
[2016-08-21 19:04] LABS: WHITE BLOOD CELL COUNT 58.8 /CUMM (4.8-10.8)
[2016-08-21 19:05] LABS: HEMATOCRIT 16.7 % (42-52)
--- NOTE | 2016-08-21 19:09 | Patient Discharge Instructions ---
Discharge Instructions General Discharge Information You were seen/treated for: acute blood loss anemia with CLL Special Instructions: 1. Please follow up with your PCP within one week of discharge. 2. Please follow up with your technical intern Dr. Foster. please follow up with him as per the rgular apointment 3. Please see the stomach doctor upon discharge for outpatient colonoscopy 4. Please continue to take your medications as prescribed. 5. Repeat CBC on 08/28/18 and fax results to PCP Diet Recommended Diet: Regular Activity Activity Self Limited: No Acute Coronary Syndrome Inclusion Criteria At DC or during hospital stay patient has or had the following: ACS DIAGNOSIS No Discharge Core Measures Meds if any: Prescribed or Continued at Discharge Meds if any: NOT Prescribed or Continued at Discharge Congestive Heart Failure Inclusion Criteria At DC or during hospital stay patient has or had the following: CHF DIAGNOSIS No Discharge Core Measures Meds if any: Prescribed or Continued at Discharge Meds if any: NOT Prescribed or Continued at Discharge Cerebrovascular accident Inclusion Criteria At DC or during hospital stay patient has or had the following: CVA/TIA Diagnosis No Discharge Core Measures Meds if any: Prescribed or Continued at Discharge Meds if any: NOT Prescribed or Continued at Discharge Venous thromboembolism Inclusion Criteria VTE Diagnosis No VTE Type NONE VTE Confirmed by (Test) NONE Discharge Core Measures - Per Current guidelines, there needs to be overlap - treatment for the first 5 days of Warfarin therapy. - If discharged on Warfarin prior to 5 days of - overlap therapy, the patient will need to be - assessed for post discharge needs including - *Post discharge parental anticoagulation - *Warfarin and/or parental anticoagulation education - *Follow up date to check INR post discharge At least 5 days overlap therapy as Inpatient No Meds if any: Prescribed or Continued at Discharge Note: Overlap Therapy is Warfarin and Anticoagulant Meds if any: NOT Prescribed or Continued at Discharge
[2016-08-22] VITALS: BP 122/60
--- NOTE | 2016-08-22 00:55 | NUR ---
PT AWAKE, DENIES PAIN AT THIS TIME. UNIT OF PC STARTED ORDERED. MONITORED FOR ADVERSE REACTION. MANUAL BP 122/60, NSR 70'S. SATURATION 98% ON 2L O2, LUNGS SOUND CLEAR. LEFT CW PM IN PLACE.
[2016-08-22 05:35] LABS: ABSOLUTE BASOPHIL COUNT 0 /CUMM (0.0-0.2); ABSOLUTE EOSINOPHIL COUNT 0 /CUMM (0.0-0.7); HEMATOCRIT 20.7 % (42-52); PLATELET COUNT 82 /CUMM (130-400)
[2016-08-22 05:43] LABS: ABSOLUTE GRANULOCYTE CT 4.5 /CUMM (1.4-6.5); ABSOLUTE LYMPH COUNT 18.7 /CUMM (1.2-3.4); ABSOLUTE MONOCYTE COUNT 0.6 /CUMM (0.10-0.60); BASOPHIL % 0.1 % (0.0-2.0); EOSINOPHIL % 0 % (0-5); GRANULOCYTE % 18.8 % (42.2-75.2); MEAN CORPUSCULAR HGB 32.6 PG (27.0-31.0); MEAN CORPUSCULAR HGB CONC 32.6 G/DL (33.0-37.0); RBC DISTRIBUTION WIDTH 17.5 % (11.5-14.5)
[2016-08-22 05:46] LABS: MEAN CORPUSCULAR VOLUME 100.1 FL (80.0-94.0); RED BLOOD CELL CT 2.06 /CUMM (4.70-6.10); WHITE BLOOD CELL COUNT 23.8 /CUMM (4.8-10.8)
--- NOTE | 2016-08-22 06:16 | PN- Hematology ---
Subjective Subjective: He feels generally well. He denies any new pain. He is more alert today. Review of Systems Constitutional: Denies: chills, fever. Cardiovascular: Denies: chest pain. Gastrointestinal: Denies: abdominal pain, melena. Musculoskeletal: Denies: back pain. Hematologic/Endocrine: Denies: bleeding. All Other Systems: Reviewed and Negative (limited due to mental status) Objective Vital Signs and I&Os Vital Signs Date Time Temp Pulse Resp B/P Pulse O2 O2 Flow FiO2 Ox Delivery Rate 08/22 0800 98.6 70 18 110/70 96 Nasal 2.0L Cannula 08/22 0800 96 Nasal 2.0L Cannula 08/22 0400 100 Nasal 2.0L Cannula 08/22 0000 98 Nasal 2.0L Cannula 08/22 0000 99.2 72 18 122/60 98 Nasal 2.0L Cannula 08/21 2153 Nasal 2.0L Cannula 08/21 2120 98.7 08/21 2000 96 Nasal 3.0L Cannula 08/21 1937 100.5 08/21 1600 96 Nasal 3.0L Cannula 08/21 1600 98.5 87 26 120/62 99 Nasal 3.0L Cannula 08/21 1500 100.5 93 18 116/58 99 Nasal 4.0L Cannula 08/21 1500 99 Nasal 4.0L Cannula 08/21 1423 100.7 88 24 112/80 99 Nasal 4.0L Cannula 08/21 1250 98.5 89 20 112/70 94 Nasal 2.0L Cannula 08/21 1222 99 Nasal 1.0L Cannula Intake & Output 08/22 1600 08/22 0800 08/22 0000 08/21 1600 08/21 0800 08/21 0000 Intake Total 750 345 0 Output Total Balance 750 345 0 Intake, Blood 700 Product Intake, IV 225 Intake, Oral 50 120 0 Patient 59.109 kg 72.717 kg 72.575 kg Weight Physical Exam General Appearance: no apparent distress, alert, awake, comfortable Respiratory: normal breath sounds, chest non-tender Cardiovascular: regular rate/rhythm Abdomen: normal bowel sounds, splenomegaly Extremities: no edema Neurologic/Psychiatric: awake, alert, oriented to self Current Medications: Current Medications Sig/Pita Start time Last Medication Dose Route Stop Time Status Admin Acetaminophen 650 MG ONCE ONE 08/21 1944 DC 08/21 PO 08/21 Albuterol Sulfate 3 ML Q4P PRN 08/21 2215 AC INH Albuterol Sulfate 3 ML ONCE ONE 08/21 1145 DC 08/21 INH 08/21 1146 1204 Azithromycin 500 MG DAILY 08/22 1000 AC 08/22 Sodium Chloride 250 ML IV 1033 Budesonide/ 2 PUF BID 08/21 2200 AC 08/22 Formoterol Fumarate INH 1034 Ceftriaxone Sodium 1,000 MG DAILY 08/22 1000 AC 08/22 IV 1026 Cyanocobalamin 1,000 MCG DAILY 08/22 1045 AC PO Ipratropium [place] 2.5 ML ONCE ONE 08/21 1145 DC 08/21 INH 08/21 1146 1204 Levothyroxine Sodium 0.025 MG DAILY 08/22 1000 AC 08/22 PO 1033 Memantine 10 MG BID 08/21 2200 AC 08/22 PO 1032 Methylprednisolone 40 MG Q12 08/21 2200 AC 08/22 IV 1029 Methylprednisolone 0 .STK-MED ONE 08/21 1221 DC .ROUTE Methylprednisolone 60 MG ONCE ONE 08/21 1215 DC 08/21 IV 08/21 1216 1215 Pantoprazole Sodium 0 .STK-MED ONE 08/21 1215 DC IV Pantoprazole Sodium 40 MG BID 08/21 1201 AC 08/22 IV 1028 Polyethylene Glycol 1 GAL ONCE ONE 08/22 1000 DC PO 08/22 1001 Quetiapine Fumarate 25 MG QPM 08/21 2200 AC 08/21 PO 2229 Rivastigmine 13.8 MG Q24 08/22 1000 AC 08/22 TOP 1034 Sertraline HCl 200 MG DAILY 08/22 1000 AC 08/22 PO 1032 Sodium Chloride 1,000 ML ONCE ONE 08/21 1200 DC 08/21 IV 08/22 0119 1215 Sodium Chloride 1,000 ML ONCE ONE 08/21 0745 DC 08/21 IV 08/21 1424 0800 Results Last 24 Hours of Lab Results: Laboratory Tests 08/22 08/22 0600 0455 Chemistry Sodium (137 - 145 mmol/L) 141 Potassium (3.5 - 5.1 mmol/L) 5.3 H Chloride (98 - 107 mmol/L) 109 H Carbon Dioxide (22 - 30 mmol/L) 22 Anion Gap (5 - 16) 10 BUN (9 - 20 mg/dL) 48 H Creatinine (0.7 - 1.2 mg/dL) 1.9 H Estimated GFR (>60 ml/min) 34 L BUN/Creatinine Ratio (7 - 25 %) 25.3 H Uric Acid (3.5 - 8.5 mg/dL) Pending Phosphorus (2.5 - 4.5 mg/dL) 5.8 H Magnesium (1.6 - 2.3 mg/dL) 2.6 H Total Bilirubin (0.2 - 1.3 mg/dL) 2.1 H Direct Bilirubin (< 0.4 mg/dL) 0.6 H AST (17 - 59 U/L) 25 ALT (21 - 72 U/L) 30 Alkaline Phosphatase (< 127 U/L) 54 Lactate Dehydrogenase (313 - 618 U/L) 687 H Total Protein (6.3 - 8.2 g/dL) 5.4 L Albumin (3.5 - 5.0 g/dL) 3.6 Methylmalonic Acid Pending Hematology CBC w Diff MAN DIFF ORDERED WBC (4.8 - 10.8 /CUMM) 23.8 H RBC (4.70 - 6.10 /CUMM) 2.06 L Hgb (14.0 - 18.0 G/DL) 6.7 *L Hct (42 - 52 %) 20.7 L MCV (80.0 - 94.0 FL) 100.1 H MCH (27.0 - 31.0 PG) 32.6 H RDW (11.5 - 14.5 %) 17.5 H Plt Count (130 - 400 /CUMM) 82 L MPV (7.4 - 10.4 FL) 8.0 Gran % (42.2 - 75.2 %) 18.8 L Lymphocytes % (20.5 - 51.1 %) 78.7 H Monocytes % (1.7 - 9.3 %) 2.4 Eosinophils % (0 - 5 %) 0 Basophils % (0.0 - 2.0 %) 0.1 Absolute Granulocytes (1.4 - 6.5 /CUMM) 4.5 Segmented Neutrophils (42.2 - 75.2 %) 14 L Absolute Lymphocytes (1.2 - 3.4 /CUMM) 18.7 H Lymphocytes (20.5 - 51.1 %) 85 H Absolute Monocytes (0.10 - 0.60 /CUMM) 0.6 Eosinophils (0 - 5.0 %) 1 Absolute Eosinophils (0.0 - 0.7 /CUMM) 0 Absolute Basophils (0.0 - 0.2 /CUMM) 0 Platelet Estimate (ADEQUATE) DECREASED Hypochromic-Microcytic 1+ Microcytic Cells 1+ Ovalocytes 1+ PUBS MCHC (33.0 - 37.0 G/DL) 32.6 L 08/21 08/21 08/21 1820 1700 1415 Chemistry Sodium (137 - 145 mmol/L) 138 Cancelled 138 Potassium (3.5 - 5.1 mmol/L) 5.7 H Cancelled 5.3 H Chloride (98 - 107 mmol/L) 107 Cancelled 108 H Carbon Dioxide (22 - 30 mmol/L) 16 L Cancelled 21 L Anion Gap (5 - 16) 15 Cancelled 9 BUN (9 - 20 mg/dL) 41 H Cancelled 41 H Creatinine (0.7 - 1.2 mg/dL) 1.9 H Cancelled 1.6 H Estimated GFR (>60 ml/min) 34 L 41 L BUN/Creatinine Ratio (7 - 25 %) Cancelled 25.6 H Glucose (65 - 99 mg/dL) 231 H Calcium (8.4 - 10.2 mg/dL) 7.7 L Phosphorus (2.5 - 4.5 mg/dL) 5.4 H Magnesium (1.6 - 2.3 mg/dL) 2.4 H Total Bilirubin (0.2 - 1.3 mg/dL) 1.1 AST (17 - 59 U/L) 28 ALT (21 - 72 U/L) 27 Lactate Dehydrogenase (313 - 618 U/L) 737 H Troponin I (<0.11 ng/ml) 0.06 Albumin (3.5 - 5.0 g/dL) 3.9 Hematology CBC w Diff MAN DIFF ORDERED WBC (4.8 - 10.8 /CUMM) 58.8 *H RBC (4.70 - 6.10 /CUMM) 1.56 L Hgb (14.0 - 18.0 G/DL) 5.0 *L Hct (42 - 52 %) 16.7 *L MCV (80.0 - 94.0 FL) 107.1 H MCH (27.0 - 31.0 PG) 32.0 H RDW (11.5 - 14.5 %) 17.1 H Plt Count (130 - 400 /CUMM) 125 L MPV (7.4 - 10.4 FL) 8.3 Gran % (42.2 - 75.2 %) 13.8 L Lymphocytes % (20.5 - 51.1 %) 82.9 H Monocytes % (1.7 - 9.3 %) 2.9 Eosinophils % (0 - 5 %) 0.1 Basophils % (0.0 - 2.0 %) 0.3 Absolute Granulocytes (1.4 - 6.5 /CUMM) 8.1 H Segmented Neutrophils (42.2 - 75.2 %) 18 L Absolute Lymphocytes (1.2 - 3.4 /CUMM) 48.8 H Lymphocytes (20.5 - 51.1 %) 81 H Monocytes (1.7 - 9.3 %) 1 L Absolute Monocytes (0.10 - 0.60 /CUMM) 1.7 H Absolute Eosinophils (0.0 - 0.7 /CUMM) 0 Absolute Basophils (0.0 - 0.2 /CUMM) 0.2 Platelet Estimate (ADEQUATE) VERIFIED BY SMEAR Polychromasia 1+ Anisocytosis 1+ Macrocytic Cells 1+ PUBS MCHC (33.0 - 37.0 G/DL) 29.9 L Other Body Source Fld Total RBCs Counted (%) 100 08/21 08/21 1410 1313 Chemistry Lactic Acid Cancelled Coagulation PT (9.4 - 12.5 SEC) 13.5 H INR (0.90 - 1.17) 1.29 H Assessment/Plan Assessment/Recommendations: Mr. Faust is an 86-year-old male with CLL with splenomegaly and mild thrombocytopenia, CAD, CHF, pacemaker, lung cancer s/p resection, prostate cancer s/p prostatectomy, Parkinson's, and COPD who presents to the hospital with AMS and severe anemia. He is currently on antibiotics wit azithromycin and ceftriaxone for CAP. He is on Solu-Medrol 40 mg BID (60 mg in ED) for his asthma/COPD. Stool guaiac was reportedly negative in ED. His hemoglobin is 4.9 currently with hematocrit of around 15. Blood work have demonstrated mildly elevated bilirubin at 2 (direct of 0.7), LDH at 710, and reticulocytes count of 12. Haptoglobin is pending. His urine is negative for hemoglobin. CT scan demonstrated splenomegaly. His platelet is close to baseline at around 97,000. Peripheral smear demonstrated atypical lymphocyte, lymphocytosis, reticulocytes, basophilic stippling, rare nucleated RBC, tear drop cells, and rare large platelets. His repeat CBC prior to transfusion noted hemoglobin of 5.0, hematocrit of 16.5, platelet of 125,000, and bilirubin of 1.1. Haptoglobin is still pending. LDH is slightly increased from privous at 737. His SALVADOR is noted to be positive for monospecific IgG. This suggest an component of AIHA with warm antibodies. This is likely secondary to underlying CLL. He should continue on current steroid dosing and monitor his hemolytic parameters. His bilirubin is a little lower than one would expect from his degree of anemia with hemolysis. This may be a gradual hemolytic process with his underlying CLL or a recent hemolytic event which was self-limited. He has some lab abnormalities concerning for at least mild TLS with hyperkalemia, hyperphosphatemia, hypocalcemia, and JASEN. Uric acid should be checked. Recommendations: 1. Repeat CBC, LDH, Bilirubin BID 2. Continue solu-medrol 40 mg BID 3. Follow up haptoglobin 4. Tentative plan for endoscopy/colonoscopy on Sunday 5. Transfuse with goal hemoglobin >8 6. Folic acid and vitamin B12 supplementation with hemolytic anemia and low normal vitamin B12 level 7. Check uric acid Please call [phone] with any questions. Problem List: 1. CLL (chronic lymphocytic leukemia) 2. Symptomatic anemia 3. Renal insufficiency 4. Thrombocytopenia
[2016-08-22 08:00] VITALS: BP 110/70
--- NOTE | 2016-08-22 08:02 | PN- Housestaff ---
RENÉ TRUONG,SIENA 08/22/16 0801: Subjective Follow-up For: Symptomatic anemia Tele-Events Since Last Visit: Paced rhythm Subjective: Max temp 100.6 HR 62-93 RR 14-20 Systolic BP 95-119 Diastolic BP 46-59 2L NC Pt was admitted to ICU for symptomatic anemia with hb of 4.8, sp 2 units of transfusion with hb coming up to 6.9. Pending 2 more PRBC transfusion. In the settings of CLL, autoimmune hemolytic anemia was considered, and warm ab came back positive, with 3+ SALVADOR. Haptoglobin and MMA pending (b12 low level of normal). He has received transfusion and on steroids (given 1X60 mg solumedrol in ED, now on 40 bid) There is no clear hx of GI bleed; has noted black stool but pt is on iron, no hx of bright red blood per rectum, stool guaiac X 2 negative. Plan for endoscopy and colonoscopy by Dr. Herman on 08/23/16. Noted WBC went from 22.1 to 58.5, then down to 23.8. Platelet 97 to 125 to 82. Peripheral smear demonstrated atypical lymphocyte, lymphocytosis, reticulocytes, basophilic stippling, rare nucleated RBC, tear drop cells, and rare large platelets. K 5.3 to 5.7 to 5.3 BUN/cr 41/1.6 to 48/1.9. When I saw him this morning, he was asleep, in no distress, with baseline tremors/twitches noted. His was not at bedside. Pt is at baseline confused, so I did not think I would get a reliably history even if I wake him up. Review of Systems Constitutional: Reports: see HPI. Objective Last 24 Hrs of Vital Signs/I&O Vital Signs Date Time Temp Pulse Resp B/P Pulse O2 O2 Flow FiO2 Ox Delivery Rate 08/22 0400 100 Nasal 2.0L Cannula 08/22 0000 98 Nasal 2.0L Cannula 08/22 0000 99.2 72 18 122/60 98 Nasal 2.0L Cannula 08/21 2152 Nasal 2.0L Cannula 08/22 2119 98.7 08/22 1999 96 Nasal 3.0L Cannula 08/21 1937 100.5 08/21 1600 96 Nasal 3.0L Cannula 08/21 1600 98.5 87 26 120/62 99 Nasal 3.0L Cannula 08/21 1500 100.5 93 18 116/58 99 Nasal 4.0L Cannula 08/21 1500 99 Nasal 4.0L Cannula 08/21 1423 100.7 88 24 112/80 99 Nasal 4.0L Cannula 08/21 1250 98.5 89 20 112/70 94 Nasal 2.0L Cannula 08/21 1222 99 Nasal 1.0L Cannula 08/21 1034 98.9 86 16 119/54 100 Nasal 2.0L Cannula Intake & Output 08/22 1600 08/22 0800 08/22 0000 Intake Total 750 345 Output Total Balance 750 345 Intake, Blood 700 Product Intake, IV 225 Intake, Oral 50 120 Patient 59.109 kg Weight Physical Exam General Appearance: No Acute Distress, asleep Cardiovascular: Regular Rate, Normal S1, Normal S2, systolic murmur present Lungs: Clear to Auscultation Abdomen: Normal Bowel Sounds, Soft, No Tenderness Extremities: No Edema Last 24 Hrs of Lab/Nilesh Results Last 24 Hrs of Labs/Mics: Laboratory Tests 08/22/16 0600: Methylmalonic Acid Pending 08/22/16 0455: Anion Gap 10, Estimated GFR 34 L, BUN/Creatinine Ratio 25.3 H, Phosphorus 5.8 H, Magnesium 2.6 H, Total Bilirubin Pending, Direct Bilirubin Pending, AST Pending, ALT Pending, Alkaline Phosphatase Pending, Lactate Dehydrogenase Pending, Total Protein Pending, Albumin Pending, CBC w Diff MAN DIFF ORDERED, RBC 2.06 L, MCV 100.1 H, MCH 32.6 H, RDW 17.5 H, MPV 8.0, Gran % 18.8 L, Lymphocytes % 78.7 H, Monocytes % 2.4, Eosinophils % 0, Basophils % 0.1, Absolute Granulocytes 4.5, Segmented Neutrophils 14 L, Absolute Lymphocytes 18.7 H, Lymphocytes 85 H, Absolute Monocytes 0.6, Eosinophils 1, Absolute Eosinophils 0, Absolute Basophils 0, Platelet Estimate DECREASED, Hypochromic- Microcytic 1+, Microcytic Cells 1+, Ovalocytes 1+, PUBS MCHC 32.6 L 08/21/16 1820: Anion Gap 15, Estimated GFR 34 L, Glucose 231 H, Calcium 7.7 L, Phosphorus 5.4 H, Magnesium 2.4 H, Total Bilirubin 1.1, AST 28, ALT 27, Lactate Dehydrogenase 737 H, Albumin 3.9, CBC w Diff MAN DIFF ORDERED, RBC 1.56 L, MCV 107.1 H, MCH 32.0 H, RDW 17.1 H, MPV 8.3, Gran % 13.8 L, Lymphocytes % 82.9 H, Monocytes % 2.9, Eosinophils % 0.1, Basophils % 0.3, Absolute Granulocytes 8.1 H, Segmented Neutrophils 18 L, Absolute Lymphocytes 48.8 H, Lymphocytes 81 H, Monocytes 1 L, Absolute Monocytes 1.7 H, Absolute Eosinophils 0, Absolute Basophils 0.2, Platelet Estimate VERIFIED BY SMEAR, Polychromasia 1+, Anisocytosis 1+, Macrocytic Cells 1+, PUBS MCHC 29.9 L, Fld Total RBCs Counted 100 08/21/16 1415: Anion Gap 9, Estimated GFR 41 L, BUN/Creatinine Ratio 25.6 H, Troponin I 0.06 08/21/16 1410: PT 13.5 H, INR 1.29 H 08/21/16 1040: Lactic Acid < 0.5 L Microbiology 08/21 1500 UPPER RESP: Surveillance Culture - RECD 08/21 1500 GI: Surveillance Culture - RECD 08/21 1240 NASOPHARYN: Influenza Virus A & B Rapid Smear - COMP 08/21 1202 URINE ROUT: Legionella Antigen - COLB 08/21 1202 URINE ROUT: Streptococcus pneumoniae Antigen (M - COLB 08/21 1202 LOWER RESP: Respiratory Culture - COLB 08/21 1202 LOWER RESP: Gram Stain - COLB Assessment/Plan Assessment: 86-year-old male, with past medical history of CLL diagnosed 2014 without chemotherapy, asthma, diverticulosis coli, Parkinson's, dementia, cardiomyopathy with low EF, post AICD/PPM, intermittent mild renal insufficiency, radical prostatectomy > 20 years ago for prostate CA, LLL wedge resection 12/2010 for moderately differentiated adeno Ca lung (w/o CTX), presenting for increased confusion, found to have severe anemia with hb of 4.8. Pt admitted to ICU, with the following problems addressed: # Symptomatic anemia, AIHA in the settings of CLL vs GI blood loss # Tumor lysis? # Pneumonia # COPD # JASEN on CKD # Symptomatic anemia, AIHA in the settings of CLL vs GI blood loss - Increasing mediastinal brady enlargement likely representing reactive inflamed nodes. However, given the patient's history early metastatic involvement cannot be excluded. - Gross splenomegaly. - On admission hb of 4.8, sp 2 units of transfusion with hb coming up to 6.9. - In the settings of CLL, autoimmune hemolytic anemia was considered, and warm ab came back positive, with 3+ SALVADOR. - There is no clear hx of GI bleed; has noted black stool but pt is on iron , no hx of bright red blood per rectum, stool guaiac X 2 negative. - Peripheral smear demonstrated atypical lymphocyte, lymphocytosis, reticulocytes, basophilic stippling, rare nucleated RBC, tear drop cells, and rare large platelets. - In April 2016, his hemoglobin was 12.0, hematocrit was 37.3, platelet 116, 000 * Continue solumedrol 40 bid * Continue IV protonix * Plan for endoscopy colonoscopy on 08/23. Clears and golytely today. NPO past midnight * Transfuse for goal hb > 8 * Follow up echocardiogram * Pending 2 more PRBC transfusion * Haptoglobin and MMA pending (b12 low level of normal). * F/U daily CBC, LDH, bilirubin * Appreciate heme/onc and GI input * Started vit b12 and folic acid # Tumor lysis? - Elevated K, phos, JASEN - uric acid level 8.8 * allopurinol 100 daily started # Thrombocytopenia - Platelet 97 to 125 to 82. # Leukocytosis - Noted WBC went from 22.1 to 58.5, then down to 23.8 # Pneumonia - Patchy nodular groundglass opacity left upper lobe and focal patchy groundglass opacity right lower lobe. Although they represent a new finding compared to recent prior CT chest, somewhat similar appearance was seen on the older examinations. This waxing and waning pattern can be seen with patchy pneumonitis or other infectious etiology. Given the history of neoplasm, close monitoring is recommended. - Increasing pleural thickening and pleural-based opacity left lower lobe and to lesser extent right lower lobe represent evolving bibasilar infiltrates in the appropriate clinical setting. Clinical correlation and follow-up CT chest after treatment recommended. - Febrile on admission with 2 bands * Continue ceftriaxone and azithromycin * Follow up CT scan as outpatient # JASEN on CKD (baseline cr 1.4) -BUN/cr 41/1.6 to 48/1.9 # Continue home meds Sertraline Rivastigmine Memantine Levothyroxine Quetiapine # Hold Aspirin 81 Diet: Clear liquid DVT ppx: mech (no pharm due to anemia) FULL CODE Consults: heme/onc, GI, ST Labs: ICU bundle, CBC , direct bilirubin, LDH Problem List: 1. Pneumonia 2. Symptomatic anemia Pain Ratin Pain Location: none Pain Goal: Remain pain free Pain Plan: none Tomorrow's Labs & Rationales: icu, direct bili, cbc, ldh, critically ill, autoimmune hemolytic anemia DVT/Prophylaxis: mechanical BLAKE GONZALEZ MD 08/22/16 1012: Attending MD Review Statement Attending Statement Attending MD Statement: examined this patient, discuss w/resident/PA/CITY ATTORNEY, agreed w/resident/PA/CITY ATTORNEY, reviewed EMR data (avail), discussed with nursing, reviewed images Attending Assessment/Plan: Patient did okay overnight. He got 2 units of blood and didn't go into overt heart failure. His hemoglobin has come up to 6 and the plan is to give him another 2 units today. He has multifactorial anemia with CLL and autoimmune hemolysis with likely blood loss as well. We are going to continue his IV steroids both for his respiratory status and for the autoimmune hemolytic anemia. He is on ceftriaxone and azithromycin for presumed pneumonia seen on the CT chest in an immunosuppressed individual. I am worried about the JASEN and the hyperkalemia especially given that he has chronic systolic heart failure. Given that he is hemodynamically stable and his crit is better I think he can be safely transferred to general med today. The plan is a GI workup for blood loss in a.m. Have noted heme's recommendations and will need to supplement B12 given ongoing hemolysis.
--- NOTE | 2016-08-22 09:00 | NUR ---
Patient is alert and confused, will respond to name and can follow commands. Hx of dementia and Parkinson's. LCW placer in place with underlying NSR. HR= 80's. SBP: 110-120's and pt denies chest pain. On 2L nc, lungs clear and diminished at the bases. An audible wheeze is heard with exertion. O2 sats 96% Abdomen is soft non tender with + bowel sounds. INC of urine. On a clear liquid diet and pt to be NPO after midnight for a colonscopy tomorrow. Golytly to begin this afternoon. Meds crushed with applesauce. Skin is intact with no areas of pressure injury noted. Patient currently denies pain and vitals are stable. He is to received two units of prbc once blood arrives at [place]. Per Shanna in bloodbank this morning patient has antibodies and blood to be transfused is not available at this time. [employer] to notify this RN once blood has arrived and is ready to be transfused. Dr. Xiong made aware. He is received IV anx and IV solumedrol. Exelon patches applied to this right shoulder. Will continue to closely monitor patient.
[2016-08-22 14:48] VITALS: BP 120/51
--- NOTE | 2016-08-22 15:45 | Event Note ---
Event Note Event Note: Situation : 's concerns alongwith PCP Dr Monty Sullivan phone conversation about Mr. Ferris colonoscopy/endoscopy Brief : * The family independence case manager Donna had earlier got in touch with the primary care who wanted to talk to a M.D., as he had concern about the patient undergoing colonoscopy/ endoscopy. * I called back Dr.Matthew Sullivan ('s PCP) at [phone]. * His PCP was concerned that the was very concerned as last time Mr. Idris Faust underwent colonoscopy he was extremely delirious and they had very difficult time taking care of the delirious state. * He discussed the option that if we could temporarily stabilize the patient with blood transfusion and stablilize H&H as he was guaiac negative and not actively bleeding we can postpone this endoscopy/colonoscopy to be arranged as outpatient. * I had an extensive discussion updating him about his current situation. * On the other hand he suggested that if the patient continued to drop H&H and if GI intervention was needed and then he recommended that the patient would be placed on propofol in order to deal with the delirious state. * He did try talking to DR Diallo earlier, but as per him it will be Dr jackson who will be doing the scope. Plan : * The patient was earlier signed off to [facility] and this conversation awas updated to her as well Dr Medina. * Further plan as per primary [place] med team. * I also updated Donna ( case MX ) about the conversation. * For now patient does have golytely ordered for anticipated colonoscopy tmrw.
--- NOTE | 2016-08-22 18:40 | NUR ---
PT AND FAMILY EDUCATED ON IMPORTANCE OF DRINKING GOLYTELY. HE IS DRINKING IT NOW WITH THE GOAL TO FINISH THE GALLON BY MIDNIGHT.
[2016-08-22 21:25] VITALS: BP 138/72
[2016-08-22 22:00] LABS: ABSOLUTE BASOPHIL COUNT 0 /CUMM (0.0-0.2); ABSOLUTE EOSINOPHIL COUNT 0 /CUMM (0.0-0.7); ABSOLUTE GRANULOCYTE CT 5.8 /CUMM (1.4-6.5); ABSOLUTE LYMPH COUNT 27.7 /CUMM (1.2-3.4); ABSOLUTE MONOCYTE COUNT 1.4 /CUMM (0.10-0.60); BASOPHIL % 0.1 % (0.0-2.0); EOSINOPHIL % 0.1 % (0-5); GRANULOCYTE % 16.5 % (42.2-75.2); MEAN CORPUSCULAR HGB 32.3 PG (27.0-31.0); MEAN CORPUSCULAR HGB CONC 32.4 G/DL (33.0-37.0); MEAN CORPUSCULAR VOLUME 99.5 FL (80.0-94.0); MEAN PLATELET VOLUME 7.6 FL (7.4-10.4); PLATELET COUNT 114 /CUMM (130-400); RBC DISTRIBUTION WIDTH 17.2 % (11.5-14.5)
[2016-08-22 22:17] LABS: RED BLOOD CELL CT 2.82 /CUMM (4.70-6.10)
[2016-08-22 22:24] LABS: WHITE BLOOD CELL COUNT 34.9 /CUMM (4.8-10.8)
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
[2016-08-23 07:21] LABS: ABSOLUTE BASOPHIL COUNT 0 /CUMM (0.0-0.2); ABSOLUTE EOSINOPHIL COUNT 0 /CUMM (0.0-0.7); ABSOLUTE GRANULOCYTE CT 3.1 /CUMM (1.4-6.5); ABSOLUTE LYMPH COUNT 11.2 /CUMM (1.2-3.4); ABSOLUTE MONOCYTE COUNT 0.5 /CUMM (0.10-0.60); BASOPHIL % 0.2 % (0.0-2.0); EOSINOPHIL % 0 % (0-5); HEMATOCRIT 24.9 % (42-52); MEAN CORPUSCULAR HGB 32.1 PG (27.0-31.0); MEAN CORPUSCULAR HGB CONC 32.4 G/DL (33.0-37.0); MEAN PLATELET VOLUME 7.9 FL (7.4-10.4); PLATELET COUNT 84 /CUMM (130-400); RBC DISTRIBUTION WIDTH 16.8 % (11.5-14.5); RED BLOOD CELL CT 2.51 /CUMM (4.70-6.10)
[2016-08-23 07:30] LABS: WHITE BLOOD CELL COUNT 14.8 /CUMM (4.8-10.8)
[2016-08-23 07:33] VITALS: BP 134/80
--- NOTE | 2016-08-23 07:39 | PN- Hematology ---
Subjective Subjective: He denies any pain currently this morning. He is not oriented but seems more alert. He was unable to finish his oral prep for colonoscopy. PCP call and is concerned about colonoscopy/EGD. Review of Systems Constitutional: Denies: chills, fever. Cardiovascular: Denies: chest pain. Respiratory: Denies: short of breath. Gastrointestinal: Reports: diarrhea. Denies: abdominal pain. Musculoskeletal: Denies: back pain. Neurological/Psychological: Reports: confusion. All Other Systems: Reviewed and Negative (limited due to dementia) Objective Vital Signs and I&Os Vital Signs Date Time Temp Pulse Resp B/P Pulse O2 O2 Flow FiO2 Ox Delivery Rate 08/23 0000 Nasal 2.0L Cannula 08/22 2144 Nasal 3.0L Cannula 08/22 2124 97.7 85 20 138/72 94 Nasal 2.0L Cannula 08/22 1600 95 Nasal 2.0L Cannula 08/22 1448 98.0 82 20 120/51 97 Nasal 2.0L Cannula 08/22 0800 98.6 70 18 110/70 96 Nasal 2.0L Cannula 08/22 0800 96 Nasal 2.0L Cannula Intake & Output 08/23 0800 08/23 0000 08/22 1600 08/22 0800 08/22 0000 08/21 1600 Intake Total 1350 750 345 Output Total Balance 1350 750 345 Intake, Blood 350 700 Product Intake, IV 250 225 Intake, Oral 750 50 120 Number 3 Bowel Movements Patient 59.109 kg 72.717 kg Weight Physical Exam General Appearance: alert, comfortable, on 2L NC Head: atraumatic Respiratory: normal breath sounds, no respiratory distress, quiet respiration Cardiovascular: regular rate/rhythm Abdomen: normal bowel sounds, non-tender, splenomegaly Back: normal inspection Extremities: normal inspection, no edema Neurologic/Psychiatric: awake, alert, oriented to self only Current Medications: Current Medications Sig/Pita Start time Last Medication Dose Route Stop Time Status Admin Albuterol Sulfate 3 ML Q4P PRN 08/21 2215 AC 08/22 INH 2240 Allopurinol 100 MG DAILY 08/22 1230 AC 08/22 PO 1411 Azithromycin 500 MG DAILY 08/22 1000 AC 08/22 Sodium Chloride 250 ML IV 1033 Budesonide/ 2 PUF BID 08/21 2200 AC 08/22 Formoterol Fumarate INH 2125 Ceftriaxone Sodium 1,000 MG DAILY 08/22 1000 AC 08/22 IV 1026 Cyanocobalamin 1,000 MCG DAILY 08/22 1045 AC 08/22 PO 1221 Folic Acid 1 MG DAILY 08/22 1315 AC 08/22 PO 1833 Levothyroxine Sodium 0.025 MG DAILY 08/22 1000 AC 08/22 PO 1033 Memantine 10 MG BID 08/21 2200 AC 08/22 PO 2126 Methylprednisolone 40 MG Q12 08/21 2200 AC 08/22 IV 2126 Pantoprazole Sodium 40 MG BID 08/21 1201 AC 08/22 IV 2126 Polyethylene Glycol 1 GAL ONCE ONE 08/22 1600 DC 08/22 PO 08/22 1601 1834 Polyethylene Glycol 1 GAL ONCE ONE 08/22 1000 CAN PO 08/22 1500 Quetiapine Fumarate 25 MG QPM 08/21 2200 AC 08/22 PO 212 Rivastigmine 13.8 MG Q24 08/22 1000 AC 08/22 TOP 1034 Sertraline HCl 200 MG DAILY 08/22 1000 AC 08/22 PO 1032 Results Last 24 Hours of Lab Results: Laboratory Tests 08/23 08/22 0630 2135 Chemistry Sodium (137 - 145 mmol/L) Pending 139 Potassium (3.5 - 5.1 mmol/L) Pending 4.7 Chloride (98 - 107 mmol/L) Pending 106 Carbon Dioxide (22 - 30 mmol/L) Pending 21 L Anion Gap (5 - 16) Pending 12 BUN (9 - 20 mg/dL) Pending 40 H Creatinine (0.7 - 1.2 mg/dL) Pending 1.7 H Estimated GFR (>60 ml/min) 38 L Glucose (65 - 99 mg/dL) Pending 104 H Calcium (8.4 - 10.2 mg/dL) Pending 7.7 L Phosphorus (2.5 - 4.5 mg/dL) Pending 6.0 H Magnesium (1.6 - 2.3 mg/dL) Pending 2.3 Total Bilirubin (0.2 - 1.3 mg/dL) Pending 1.7 H Direct Bilirubin Pending AST (17 - 59 U/L) Pending 24 ALT (21 - 72 U/L) Pending 33 Lactate Dehydrogenase (313 - 618 U/L) Pending 757 H Albumin (3.5 - 5.0 g/dL) Pending 4.0 Hematology CBC w Diff Pending NO MAN DIFF REQ WBC (4.8 - 10.8 /CUMM) Pending 34.9 *H RBC (4.70 - 6.10 /CUMM) Pending 2.82 L Hgb (14.0 - 18.0 G/DL) Pending 9.1 L Hct (42 - 52 %) Pending 28.0 L MCV (80.0 - 94.0 FL) Pending 99.5 H MCH (27.0 - 31.0 PG) Pending 32.3 H RDW (11.5 - 14.5 %) Pending 17.2 H Plt Count (130 - 400 /CUMM) Pending 114 L MPV (7.4 - 10.4 FL) Pending 7.6 Gran % (42.2 - 75.2 %) Pending 16.5 L Lymphocytes % (20.5 - 51.1 %) Pending 79.3 H Monocytes % (1.7 - 9.3 %) Pending 4.0 Eosinophils % (0 - 5 %) Pending 0.1 Basophils % (0.0 - 2.0 %) Pending 0.1 Absolute Granulocytes (1.4 - 6.5 /CUMM) Pending 5.8 Absolute Lymphocytes (1.2 - 3.4 /CUMM) Pending 27.7 H Absolute Monocytes (0.10 - 0.60 /CUMM) Pending 1.4 H Absolute Eosinophils (0.0 - 0.7 /CUMM) Pending 0 Absolute Basophils (0.0 - 0.2 /CUMM) Pending 0 PUBS MCHC (33.0 - 37.0 G/DL) Pending 32.4 L Assessment/Plan Assessment/Recommendations: Mr. Faust is an 86-year-old male with CLL with splenomegaly and mild thrombocytopenia, CAD, CHF, pacemaker, lung cancer s/p resection, prostate cancer s/p prostatectomy, Parkinson's, and COPD who presents to the hospital with AMS and severe anemia. He is currently on Solu-Medrol 40 mg BID. Blood work demonstrated appropriate improvement after 4 units pRBC transfusion. Blood work suggest autoimmune hemolytic anemia with elevated LDH, mildly elevated bilirubin of 2, elevated reticulocytes, and low haptoglobin. He has baseline splenomegaly with know mild -moderate thrombocytopenia. LDH remains elevated with slightly improved bilirubin. WBC has been fluctuating. This is likely related to acute issues including possible pneumonia being treated with ceftriaxone and azithromycin. He should be on folic acid and vitamin B12 supplementation. Uric acid was slightly elevated. This may be a combination of renal injury and tumor lysis. Allopurinol 100 mg daily was started. His degree of anemia is concerning for possible concominant GI bleeding. There is concern on whether he can tolerate colonoscopy/EGD. This may be done as outpatient depending on GI preferrence. He seems stable currently with hemoglobin responding to transfusion Recommendations: 1. Monitor CBC, LDH, Bilirubin daily 2. Continue solu-medrol 40 mg BID, may be able to transition to oral prednisone 1 mg/kg if tolerating PO 3. Tentative plan for endoscopy/colonoscopy as per GI 4. Transfuse with goal hemoglobin >8 5. Folic acid and vitamin B12 supplementation 6. Continue allopurinol 100 mg daily Please call [phone] with any questions. Problem List: 1. CLL (chronic lymphocytic leukemia) 2. Symptomatic anemia 3. Thrombocytopenia 4. Parkinsons 5. JASEN (acute kidney injury)
--- NOTE | 2016-08-23 09:02 | PN- Housestaff ---
WILLIAM TRUONG,JA 08/23/16 0902: Subjective Follow-up For: Symptomatic anemia Subjective: Patient appears comfortable this morning. No overnight events reported. Has been drinking GoLYTELY. Was able to finish half a gallon. Denies abdominal pain. Overnight stools have been guaiac negative. Patient oriented to person but not oriented to place and time. Able to follow commands Review of Systems Constitutional: Reports: see HPI. Objective Last 24 Hrs of Vital Signs/I&O Vital Signs Date Time Temp Pulse Resp B/P Pulse O2 O2 Flow FiO2 Ox Delivery Rate 08/23 1216 98.6 74 14 122/58 97 Nasal 2.0L Cannula 08/23 0800 Nasal 2.0L Cannula 08/23 0733 97.5 75 20 134/80 95 Nasal 3.0L Cannula 08/23 0000 Nasal 2.0L Cannula 08/22 2145 Nasal 3.0L Cannula 08/22 2125 97.7 85 20 138/72 94 Nasal 2.0L Cannula 08/22 1600 95 Nasal 2.0L Cannula 08/22 1448 98.0 82 20 120/51 97 Nasal 2.0L Cannula Intake & Output 08/23 1600 08/23 0800 08/23 0000 Intake Total Output Total Balance Number 3 3 Bowel Movements Physical Exam General Appearance: Alert, Cooperative, No Acute Distress Skin: No Rashes Cardiovascular: Regular Rate, Normal S1, Normal S2, No Murmurs Lungs: Clear to Auscultation Abdomen: Normal Bowel Sounds, Soft, No Tenderness, SPLENOMEGALY PRESENT Neurological: Normal Speech Extremities: No Clubbing, No Cyanosis, No Edema Current Medications: Current Medications Sig/Pita Start time Last Medication Dose Route Stop Time Status Admin Albuterol Sulfate 3 ML Q4P PRN 08/21 2215 AC 08/22 INH 2240 Allopurinol 100 MG DAILY 08/22 1230 AC 08/23 PO 0923 Azithromycin 500 MG DAILY 08/22 1000 AC 08/23 Sodium Chloride 250 ML IV 1053 Budesonide/ 2 PUF BID 08/21 220 AC 08/23 Formoterol Fumarate INH 0933 Ceftriaxone Sodium 1,000 MG DAILY 08/22 1000 AC 08/23 IV 1052 Cyanocobalamin 1,000 MCG DAILY 08/22 1045 AC 08/23 PO 0930 Folic Acid 1 MG DAILY 08/22 1315 AC 08/23 PO 1053 Levothyroxine Sodium 0.025 MG DAILY 08/22 1000 AC 08/23 PO 0924 Memantine 10 MG BID 08/210 AC 08/23 PO 0923 Methylprednisolone 40 MG Q12 08/21 2200 AC 08/23 IV 1021 Pantoprazole Sodium 40 MG BID 08/21 1201 AC 08/23 IV 1052 Polyethylene Glycol 1 GAL ONCE ONE 08/22 1600 DC 08/22 PO 08/22 1601 1834 Quetiapine Fumarate 25 MG QPM 08/21 2199 AC 08/22 PO 2126 Rivastigmine 13.8 MG Q24 08/22 1000 AC 08/23 TOP 0917 Sertraline HCl 200 MG DAILY 08/22 1000 AC 08/23 PO 0923 Last 24 Hrs of Lab/Nilesh Results Last 24 Hrs of Labs/Mics: Laboratory Tests 08/23/16 0630: Anion Gap 8, Estimated GFR 41 L, Glucose 116 H, Calcium 7.6 L, Phosphorus 5.4 H, Magnesium 2.3, Total Bilirubin 1.8 H, Direct Bilirubin 0.4, AST 19, ALT 35, Lactate Dehydrogenase 634 H, Albumin 3.4 L, CBC w Diff MAN DIFF ORDERED, RBC 2.51 L, MCV 99.0 H, MCH 32.1 H, RDW 16.8 H, MPV 7.9, Gran % 21.0 L, Lymphocytes % 75.7 H, Monocytes % 3.1, Eosinophils % 0, Basophils % 0.2, Absolute Granulocytes 3.1, Segmented Neutrophils 23 L, Absolute Lymphocytes 11.2 H, Lymphocytes 76 H, Monocytes 1 L, Absolute Monocytes 0.5, Absolute Eosinophils 0, Absolute Basophils 0, Platelet Estimate DECREASED, Normocytic RBCs VERIFIED, Normochromic RBCs VERIFIED, PUBS MCHC 32.4 L 08/22/162134: Anion Gap 12, Estimated GFR 38 L, Glucose 104 H, Calcium 7.7 L, Phosphorus 6.0 H, Magnesium 2.3, Total Bilirubin 1.7 H, AST 24, ALT 33, Lactate Dehydrogenase 757 H, Albumin 4.0, CBC w Diff NO MAN DIFF REQ, RBC 2.82 L, MCV 99.5 H, MCH 32.3 H, RDW 17.2 H, MPV 7.6, Gran % 16.5 L, Lymphocytes % 79.3 H, Monocytes % 4.0, Eosinophils % 0.1, Basophils % 0.1, Absolute Granulocytes 5.8, Absolute Lymphocytes 27.7 H, Absolute Monocytes 1.4 H, Absolute Eosinophils 0, Absolute Basophils 0, PUBS MCHC 32.4 L Assessment/Plan Assessment: 86-year-old male, with past medical history of CLL diagnosed 2014 without chemotherapy, asthma, diverticulosis coli, Parkinson's, dementia, cardiomyopathy with low EF, post AICD/PPM, intermittent mild renal insufficiency, radical prostatectomy > 20 years ago for prostate CA, LLL wedge resection 12/2010 for moderately differentiated adeno Ca lung (w/o CTX), presenting for increased confusion, found to have severe anemia with hb of 4.8. Pt admitted to ICU, with the following problems addressed: # Symptomatic anemia, AIHA in the settings of CLL vs GI blood loss # Tumor lysis? # Pneumonia # COPD # JASEN on CKD # Symptomatic anemia, AIHA in the settings of CLL vs GI blood loss - Increasing mediastinal brady enlargement likely representing reactive inflamed nodes. However, given the patient's history early metastatic involvement cannot be excluded. - Gross splenomegaly. - On admission hb of 4.8, received 4 units of packed red blood cells with hemoglobin today at 8.1. -There was a concern for delirium after colonoscopy done last time by his and the primary care physicians. Per GI delirium was not related to the colonoscopy but rather to lobectomy. Per GI we will go ahead and proceed with EGD today and his colonoscopy for outpatient. If H&H continues to drop he may require procedure to be done during this admission. - Pt updated about the plan over phone - In the settings of CLL, patient has autoimmune hemolytic anemia and warm ab came back positive, with 3+ SALVADOR. - There is no clear hx of GI bleed; has noted black stool but pt is on iron , no hx of bright red blood per rectum, stool guaiac X 2 negative. - Peripheral smear demonstrated atypical lymphocyte, lymphocytosis, reticulocytes, basophilic stippling, rare nucleated RBC, tear drop cells, and rare large platelets. - In April 2016, his hemoglobin was 12.0, hematocrit was 37.3, platelet 116, 000 * Continue solumedrol 40 bid * Continue IV protonix * Transfuse for goal hb > 8 * Follow up echocardiogram * Haptoglobin and MMA pending (b12 low level of normal). * F/U daily CBC, LDH, bilirubin * GI/heme following the patient * Started vit b12 and folic acid # Tumor lysis? - Elevated K, phos, JASEN - uric acid level 8.8 * Currently on allopurinol 100 daily # Thrombocytopenia - Platelet 97 to 125 to 82. # Leukocytosis - Noted WBC went from 22.1 to 58.5, then down to 23.8 - Improving today # Pneumonia - Patchy nodular groundglass opacity left upper lobe and focal patchy groundglass opacity right lower lobe. Although they represent a new finding compared to recent prior CT chest, somewhat similar appearance was seen on the older examinations. This waxing and waning pattern can be seen with patchy pneumonitis or other infectious etiology. Given the history of neoplasm, close monitoring is recommended. - Increasing pleural thickening and pleural-based opacity left lower lobe and to lesser extent right lower lobe represent evolving bibasilar infiltrates in the appropriate clinical setting. Clinical correlation and follow-up CT chest after treatment recommended. - Febrile on admission with 2 bands * Continue ceftriaxone and azithromycin * Follow up CT scan as outpatient # JASEN on CKD (baseline cr 1.4) -BUN/cr 41/1.6 to 48/1.9 # Continue home meds Sertraline Rivastigmine Memantine Levothyroxine Quetiapine # Hold Aspirin 81 Diet: Nothing by mouth DVT ppx: mech (no pharm due to anemia) FULL CODE Consults: heme/onc, GI, ST Labs: ICU bundle, CBC , direct bilirubin, LDH Problem List: 1. CLL (chronic lymphocytic leukemia) 2. Symptomatic anemia 3. Confusion 4. Parkinsons Pain Ratin Pain Location: no pain Pain Goal: Remain pain free Pain Plan: Not requiring pain meds Tomorrow's Labs & Rationales: Will need follow up labs BLAKE GONZALEZ MD 08/23/16 1014: Attending MD Review Statement Attending Statement Attending MD Statement: examined this patient, discuss w/resident/PA/DAYTIME BABYSITTER, agreed w/resident/PA/DAYTIME BABYSITTER, discussed with family, reviewed EMR data (avail), discussed with nursing, discussed with case mgmt, reviewed images Attending Assessment/Plan: Overnight events noted. Patient is confused and refused to drink more than half a gallon of GoLYTELY. Patient's is worried because she feels that when he course of procedures like this he becomes extremely delirious. I spoke to her at length and I've been in touch with Dr. Dean Herman. At this point given the degree of anemia and the fact that we can't really blame all of it on autoimmune hemolysis we all feel it prudent to look for an occult blood loss source. The plan today is to do an endoscopy alone and if we find the bleeding site we are done and not pursue the colonoscopy for now. Once he finishes his endoscopy and I switched him to by mouth meds will switch him to by mouth Solu- Medrol as indicated by the [place]. Once he comes back from his endoscopy will have a PT eval to get him out of bed. His crit is better after 4 units of blood. We have him on IV ceftriaxone and azithromycin and pneumonia in a patient with CLL. And his renal function is improving slowly.
[2016-08-23 12:16] VITALS: BP 122/58
--- NOTE | 2016-08-23 15:09 | NUR ---
PHYSICAL THERAPY: ATTEMPTED TO SEE PATIENT THIS P.M. PATIENT REMAINS OFF THE FLOOR FOR ENDOSCOPY. P.T. WILL F/U APPROPRAITE TOMORROW A.M. FOR EVALUATION.
--- NOTE | 2016-08-23 15:28 | Proc Note Endoscopy ---
Endoscopy Procedure Procedure Date: 08/23/16 Procedure Type: EGD with cautery Play Writer: Anselmo Herman M.D. ASA Classification: III Indications: Anemia GI bleeding Instrument: diagnostic gastroscope Meds Received: MAC (O2 via mask) Patient's Tolerance: good Complications: none Extent Reached: transverse duodenum Procedure: The patient's /POA signed informed consent, and he was medicated. Pulse oximetry, blood pressure and cardiac monitoring were performed continuously throughout the procedure. The Olympus high-definition gastroscope was inserted into the mouth and advanced to the duodenum. Retroflexion was performed within the stomach to examine the cardia. Careful examination was performed. Findings: The esophagus had normal caliber and contour. The mucosa was intact throughout the there were no varices. The GE junction at 40 cm was normal. There was a small sliding hiatal hernia. Stomach had normal distention and active peristalsis. The cardia was normal; a GE junction ring was seen in retroflexion. Within the fundus there were flecks of old blood, as well as a small vascular ectasia with adjacent fresh blood. This was cauterized to ablation using 20 W bipolar current. The remainder of the stomach was normal. The pyloric channel, duodenal bulb, and mucosa and folds of the second and third portions of the duodenum were normal. Impression: * Fundic vascular ectasia, cauterized * Small hiatal hernia Recommendations: * Advance to regular diet * Defer colonoscopy; will readdress in the outpatient setting * Iron supplementation * Follow-up CBC tomorrow CC: SHAMIKA TRUONG,TISH Sloan
[2016-08-23 16:00] VITALS: BP 124/55
--- NOTE | 2016-08-23 17:22 | ECHOCARDIOGRAM REPORT ---
DEANN MUNOZ Age: 86 : 1930 Gender: M Exam Date: 08/22/2016 20:25 Exam Location: [address] [place] [address] Ht (in): 68 Wt (lb): 130 BSA: 1.68 BP: 120 / 51 Ordering Physician: PARKER AVITIA MD Referring Physician: Rachelle Ness MD Technologist: Kadie Marinelli [facility] Room Number: 215-01 Indications: LV FUNCTION AFTER ACS Rhythm: Sinus Technical Quality: Fair FINDINGS Left Ventricle Normal size left ventricle. Mildly reduced global left ventricular systolic function. Mildly abnormal left ventricular ejection fraction estimated at 35-40%. Right Ventricle Mild right ventricular dilatation. Right Atrium Mild right atrial dilatation. Catheter/pacemaker wire in the right atrial cavity. Left Atrium Mild to moderate left atrial dilatation. Mitral Valve Mitral valve thickened. Mild mitral annular calcification. Mild-to- moderate mitral regurgitation. Aortic Valve Trileaflet aortic valve. Diffuse thickening of the aortic valve cusps with reduced excursion. No aortic stenosis. Trace aortic regurgitation. Tricuspid Valve Tricuspid valve not well visualized, grossly normal. Moderate tricuspid regurgitation. Right ventricular systolic pressure estimated to be elevated at 52 mmHg. Pulmonic Valve Pulmonic valve not well visualized, grossly normal. Pericardium No pericardial effusion. Great Vessels Aortic root and proximal ascending aorta not well visualized, grossly normal. CONCLUSIONS 1. Moderate aortic sclerosis is present with minimal aortic insufficiency. 2. Mitral leaflet thickening is present with mild to moderate mitral insufficiency and mild to moderate left atrial enlargement. 3. There is no significant pericardial fluid present. 4. The left ventricular chamber size is normal. There is global hypokinesia present which is slightly worse in the inferoseptal, inferoposterior, inferolateral and distal anterior segments. The ejection fraction is 35-40%. 5. Mild enlargement of the right heart chambers is present with moderate tricuspid insufficiency and pulmonary hypertension with an estimated RV systolic pressure of 52 mmHg. 6. AICD wires are present in the right heart chambers. Rachelle Ness M.D. (Electronically Signed) Final Date: 23 August 2016 17:21 MEASUREMENTS (Male / Female) Normal Values 2D ECHO LV Diastolic Diameter PLAX 5.0 cm 4.2 - 5.9 / 3.9 - 5.3 cm LV Systolic Diameter PLAX 3.9 cm 2.1 - 4.0 cm LV Fractional Shortening PLAX 22.0 % 25 - 46 % LV Ejection Fraction 2D Teich 44.3 % IVS Diastolic Thickness 1.0 cm LVPW Diastolic Thickness 1.0 cm LV Relative Wall Thickness 0.4 RV Internal Dim ED PLAX 3.5 cm 1.9 - 3.8 cm LVOT Diameter 2.3 cm Aortic Root Diameter 3.3 cm LA Systolic Diameter LX 4.6 cm 3.0 - 4.0 / 2.7 - 3.8 cm LA Volume 65.0 cm 18 - 58 / 22 - 52 cm Ascending Aorta Diameter 3.6 cm DOPPLER AV Peak Velocity 156.0 cm/s AV Peak Gradient 9.7 mmHg AV Mean Velocity 104.0 cm/s AV Mean Gradient 5.0 mmHg AV Velocity Time Integral 35.2 cm LVOT Peak Velocity 129.0 cm/s LVOT Peak Gradient 6.7 mmHg LVOT Mean Velocity 88.6 cm/s LVOT Mean Gradient 4.0 mmHg LVOT Velocity Time Integral 25.3 cm LVOT Stroke Volume 105.1 cm AV Area Cont Eq vti 3.0 cm AV Area Cont Eq pk 3.4 cm MV Peak Velocity 105.0 cm/s MV Peak Gradient 4.4 mmHg MV Mean Velocity 60.4 cm/s MV Mean Gradient 2.0 mmHg Mitral E Point Velocity 102.0 cm/s Mitral A Point Velocity 67.6 cm/s Mitral E to A Ratio 1.5 MV PHT Velocity 111.0 cm/s MV Deceleration [place] 431.0 cm/s MV Pressure Half Time 77.3 ms MV Area PHT 2.8 cm MV Deceleration Time 134.0 ms TR Peak Velocity 341.0 cm/s TR Peak Gradient 46.5 mmHg Right Atrial Pressure 10.0 mmHg Pulmonary Artery Systolic Pressu 56.5 mmHg Right Ventricular Systolic Press 56.5 mmHg PV Peak Velocity 77.5 cm/s PV Peak Gradient 2.4 mmHg PV Mean Velocity 60.2 cm/s PV Mean Gradient 2.0 mmHg PV Velocity Time Integral 18.4 cm LV E' Lateral Velocity 9.6 cm/s Mitral E to LV E' Lateral Ratio 10.7 LV E' Septal Velocity 8.0 cm/s Mitral E to LV E' Septal Ratio 12.8
--- NOTE | 2016-08-23 17:37 | NUR ---
1530 PATIENT BACK ON FLOOR ALERT AND ORIENTED X 3. VITAL SIGNS STABLE. DENIES CHEST PAIN. + PULSES ON 2L OXYGEN VIA NASAL CANNULA. NO DISCOMFORT NOTED FAMILY AT BEDSIDE. WILL CONTINUE TO MONITOR
[2016-08-23 22:33] VITALS: BP 128/62
--- NOTE | 2016-08-24 00:40 | NUR ---
PATIENT ALERT AND CONFUSED. VITAL SIGNS STABLE. DENIES CHEST PAIN. + PULSES NO DISCOMFORT NOTED. PT TURNED AND REPOSITIONED Q2. PATIENT RESTING AT THIS TIME. WILL CONTINUE TO MONITOR
[2016-08-24 06:56] VITALS: BP 116/50
--- NOTE | 2016-08-24 07:50 | Discharge Summary ---
Visit Information Visit Dates Admission Date: 08/21/16 Discharge Date: 08/25/16 Hospital Course Course Attending Physician: CARLOS TRUONG,BLAKE Pimentel Primary Care Physician: LYNDSEY TRUONG,GUS Vieira Consulting Request: Consulting Specialty: Hematology/Oncology Hospital Course: 86-year-old gentleman with medical history significant for asthma, Parkinson's, cardiomyopathy with low ejection fraction, prostate cancer status post radical prostatectomy, lower lobe lung resection secondary to lung cancer, CLL diagnosed 2 years ago actively following Dr. Vásquez was brought in by his as he is not just been himself for the past few days. Vitals and admission: Blood pressure 129/58, respiratory rate 16, heart rate 84, temperature 99.0, oxygen saturation 94% on 2 L nasal cannula Labs an admission WBC 22.1, hemoglobin 4.8, hematocrit 15.1, platelets 97, sodium 139, potassium 5.6, chloride 107, bicarbonate 26, BUN 40, creatinine 1.7. Imaging an admission 1. CT chest abdomen and pelvis without contrast: 1. Patchy nodular groundglass opacity left upper lobe and focal patchy groundglass opacity right lower lobe. Although they represent a new finding compared to recent prior CT chest, somewhat similar appearance was seen on the older examinations. This waxing and waning pattern can be seen with patchy pneumonitis or other infectious etiology. Given the history of neoplasm, close monitoring is recommended. 2. Increasing pleural thickening and pleural-based opacity left lower lobe and to lesser extent right lower lobe represent evolving bibasilar infiltrates in the appropriate clinical setting. Clinical correlation and follow-up CT chest after treatment recommended. 3. Increasing mediastinal brady enlargement likely representing reactive inflamed nodes. However, given the patient's history early metastatic involvement cannot be excluded. 4. Gross splenomegaly. 5. No evidence of diverticulitis. Colonic diverticulosis. Hospital course 1. 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 He received 4 units of packed RBCs in total after which his hemoglobin to 8.1. As the extent of anemia was severe which was noted and explained by autoimmune hemolytic anemia, decision was made to proceed with endoscopy and colonoscopy. Based on the concern of the primary care physician and the patient's for patient becoming more delirious after the procedure decision was made to pursue endoscopy alone . 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 Since his H&H was stable colonoscopy was deferred in the current admission and plan to pursue it as an outpatient. He was restarted on a PPI and iron supplement by mouth. Per GI rec baby aspirin can be restarted upon discharge. 2. 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 Blood work remained elevated for LDH, mildly elevated bilirubin and elevated reticulocyte count and low haptoglobin, warm antibodies were positive with 3+ SALVADOR. 4 units of blood. He was started on IV Solu-Medrol and later transitioned to by mouth medication. Patient was also started on folic acid and vitamin B12 supplementation. 3. Community-acquired pneumonia: CAT scan of the chest showed evidence of patchy nodular groundglass opacities with increasing pleural thickenings. Given his immunocompromised nature of the patient he was started on ceftriaxone and azithromycin for community-acquired pneumonia. He is also continued on Solu- Medrol along with TRC nebulizes. Patient white count was initially elevated which could again be due to underlying CLL. Was discharged on PO abx to complete a total course of 5 days. 4. Hyperuricemia along with elevated potassium and phosphorus more likely due to tumor lysis. Patient was started on allopurinol 100 mg daily. 5. History of dementia: He was continued on his home medications 6. Acute on chronic kidney disease: Most likely prerenal due to acute blood loss anemia. His creatinine improved gradually and was at baseline which is 1.4 upon discharge. He was continued on rest of his home medication including sertraline, rivastigmine, memantine and levothyroxine Regular diet Full CODE STATUS He will need a follow up CBC on 08/28/16 Allergies: Coded Allergies: NO KNOWN ALLERGIES (07/20/14) Pertinent Lab Results: Laboratory Tests 08/24 08/23 0628 0630 Chemistry Sodium (137 - 145 mmol/L) 142 142 Potassium (3.5 - 5.1 mmol/L) 3.7 4.4 Chloride (98 - 107 mmol/L) 108 H 108 H Carbon Dioxide (22 - 30 mmol/L) 26 26 Anion Gap (5 - 16) 8 8 BUN (9 - 20 mg/dL) 34 H 39 H Creatinine (0.7 - 1.2 mg/dL) 1.5 H 1.6 H Estimated GFR (>60 ml/min) 44 L 41 L BUN/Creatinine Ratio (7 - 25 %) 22.7 Glucose (65 - 99 mg/dL) 116 H Calcium (8.4 - 10.2 mg/dL) 7.6 L Phosphorus (2.5 - 4.5 mg/dL) 5.4 H Magnesium (1.6 - 2.3 mg/dL) 2.3 Total Bilirubin (0.2 - 1.3 mg/dL) 2.1 H 1.8 H Direct Bilirubin (< 0.4 mg/dL) 0.6 H 0.4 AST (17 - 59 U/L) 17 19 ALT (21 - 72 U/L) 32 35 Alkaline Phosphatase (< 127 U/L) 50 Lactate Dehydrogenase (313 - 618 U/L) 597 634 H Total Protein (6.3 - 8.2 g/dL) 5.2 L Albumin (3.5 - 5.0 g/dL) 3.2 L 3.4 L Hematology CBC w Diff MAN DIFF ORDERED MAN DIFF ORDERED WBC (4.8 - 10.8 /CUMM) 16.5 H 14.8 H RBC (4.70 - 6.10 /CUMM) 2.66 L 2.51 L Hgb (14.0 - 18.0 G/DL) 8.6 L 8.1 L Hct (42 - 52 %) 26.6 L 24.9 L MCV (80.0 - 94.0 FL) 99.9 H 99.0 H MCH (27.0 - 31.0 PG) 32.3 H 32.1 H RDW (11.5 - 14.5 %) 16.1 H 16.8 H Plt Count (130 - 400 /CUMM) 94 L 84 L MPV (7.4 - 10.4 FL) 7.7 7.9 Gran % (42.2 - 75.2 %) 18.0 L 21.0 L Lymphocytes % (20.5 - 51.1 %) 79.4 H 75.7 H Monocytes % (1.7 - 9.3 %) 2.2 3.1 Eosinophils % (0 - 5 %) 0.2 0 Basophils % (0.0 - 2.0 %) 0.2 0.2 Absolute Granulocytes (1.4 - 6.5 /CUMM) 3.0 3.1 Segmented Neutrophils (42.2 - 75.2 %) 23 L Absolute Lymphocytes (1.2 - 3.4 /CUMM) 13.1 H 11.2 H Lymphocytes (20.5 - 51.1 %) 76 H Monocytes (1.7 - 9.3 %) 1 L Absolute Monocytes (0.10 - 0.60 /CUMM) 0.4 0.5 Absolute Eosinophils (0.0 - 0.7 /CUMM) 0 0 Absolute Basophils (0.0 - 0.2 /CUMM) 0 0 Platelet Estimate (ADEQUATE) DECREASED DECREASED Normocytic RBCs VERIFIED Normochromic RBCs VERIFIED Polychromasia 1+ Poikilocytosis 1+ Anisocytosis 1+ Macrocytic Cells 1+ Ovalocytes 1+ PUBS MCHC (33.0 - 37.0 G/DL) 32.3 L 32.4 L 08/22 08/22 2135 0600 Chemistry Sodium (137 - 145 mmol/L) 139 Potassium (3.5 - 5.1 mmol/L) 4.7 Chloride (98 - 107 mmol/L) 106 Carbon Dioxide (22 - 30 mmol/L) 21 L Anion Gap (5 - 16) 12 BUN (9 - 20 mg/dL) 40 H Creatinine (0.7 - 1.2 mg/dL) 1.7 H Estimated GFR (>60 ml/min) 38 L Glucose (65 - 99 mg/dL) 104 H Calcium (8.4 - 10.2 mg/dL) 7.7 L Phosphorus (2.5 - 4.5 mg/dL) 6.0 H Magnesium (1.6 - 2.3 mg/dL) 2.3 Total Bilirubin (0.2 - 1.3 mg/dL) 1.7 H AST (17 - 59 U/L) 24 ALT (21 - 72 U/L) 33 Lactate Dehydrogenase (313 - 618 U/L) 757 H Albumin (3.5 - 5.0 g/dL) 4.0 Methylmalonic Acid Pending Hematology CBC w Diff NO MAN DIFF REQ WBC (4.8 - 10.8 /CUMM) 34.9 *H RBC (4.70 - 6.10 /CUMM) 2.82 L Hgb (14.0 - 18.0 G/DL) 9.1 L Hct (42 - 52 %) 28.0 L MCV (80.0 - 94.0 FL) 99.5 H MCH (27.0 - 31.0 PG) 32.3 H RDW (11.5 - 14.5 %) 17.2 H Plt Count (130 - 400 /CUMM) 114 L MPV (7.4 - 10.4 FL) 7.6 Gran % (42.2 - 75.2 %) 16.5 L Lymphocytes % (20.5 - 51.1 %) 79.3 H Monocytes % (1.7 - 9.3 %) 4.0 Eosinophils % (0 - 5 %) 0.1 Basophils % (0.0 - 2.0 %) 0.1 Absolute Granulocytes (1.4 - 6.5 /CUMM) 5.8 Absolute Lymphocytes (1.2 - 3.4 /CUMM) 27.7 H Absolute Monocytes (0.10 - 0.60 /CUMM) 1.4 H Absolute Eosinophils (0.0 - 0.7 /CUMM) 0 Absolute Basophils (0.0 - 0.2 /CUMM) 0 PUBS MCHC (33.0 - 37.0 G/DL) 32.4 L 08/22 08/21 0455 1820 Chemistry Sodium (137 - 145 mmol/L) 141 138 Potassium (3.5 - 5.1 mmol/L) 5.3 H 5.7 H Chloride (98 - 107 mmol/L) 109 H 107 Carbon Dioxide (22 - 30 mmol/L) 22 16 L Anion Gap (5 - 16) 10 15 BUN (9 - 20 mg/dL) 48 H 41 H Creatinine (0.7 - 1.2 mg/dL) 1.9 H 1.9 H Estimated GFR (>60 ml/min) 34 L 34 L BUN/Creatinine Ratio (7 - 25 %) 25.3 H Glucose (65 - 99 mg/dL) 231 H Uric Acid (3.5 - 8.5 mg/dL) 8.8 H Calcium (8.4 - 10.2 mg/dL) 7.7 L Phosphorus (2.5 - 4.5 mg/dL) 5.8 H 5.4 H Magnesium (1.6 - 2.3 mg/dL) 2.6 H 2.4 H Total Bilirubin (0.2 - 1.3 mg/dL) 2.1 H 1.1 Direct Bilirubin (< 0.4 mg/dL) 0.6 H AST (17 - 59 U/L) 25 28 ALT (21 - 72 U/L) 30 27 Alkaline Phosphatase (< 127 U/L) 54 Lactate Dehydrogenase (313 - 618 U/L) 687 H 737 H Total Protein (6.3 - 8.2 g/dL) 5.4 L Albumin (3.5 - 5.0 g/dL) 3.6 3.9 Hematology CBC w Diff MAN DIFF ORDERED MAN DIFF ORDERED WBC (4.8 - 10.8 /CUMM) 23.8 H 58.8 *H RBC (4.70 - 6.10 /CUMM) 2.06 L 1.56 L Hgb (14.0 - 18.0 G/DL) 6.7 *L 5.0 *L Hct (42 - 52 %) 20.7 L 16.7 *L MCV (80.0 - 94.0 FL) 100.1 H 107.1 H MCH (27.0 - 31.0 PG) 32.6 H 32.0 H RDW (11.5 - 14.5 %) 17.5 H 17.1 H Plt Count (130 - 400 /CUMM) 82 L 125 L MPV (7.4 - 10.4 FL) 8.0 8.3 Gran % (42.2 - 75.2 %) 18.8 L 13.8 L Lymphocytes % (20.5 - 51.1 %) 78.7 H 82.9 H Monocytes % (1.7 - 9.3 %) 2.4 2.9 Eosinophils % (0 - 5 %) 0 0.1 Basophils % (0.0 - 2.0 %) 0.1 0.3 Absolute Granulocytes (1.4 - 6.5 /CUMM) 4.5 8.1 H Segmented Neutrophils (42.2 - 75.2 %) 14 L 18 L Absolute Lymphocytes (1.2 - 3.4 /CUMM) 18.7 H 48.8 H Lymphocytes (20.5 - 51.1 %) 85 H 81 H Monocytes (1.7 - 9.3 %) 1 L Absolute Monocytes (0.10 - 0.60 /CUMM) 0.6 1.7 H Eosinophils (0 - 5.0 %) 1 Absolute Eosinophils (0.0 - 0.7 /CUMM) 0 0 Absolute Basophils (0.0 - 0.2 /CUMM) 0 0.2 Platelet Estimate (ADEQUATE) DECREASED VERIFIED BY SMEAR Polychromasia 1+ Hypochromic-Microcytic 1+ Anisocytosis 1+ Microcytic Cells 1+ Macrocytic Cells 1+ Ovalocytes 1+ PUBS MCHC (33.0 - 37.0 G/DL) 32.6 L 29.9 L Other Body Source Fld Total RBCs Counted (%) 100 08/21 08/21 08/21 08/21 08/21 1700 1415 1410 1313 1040 Chemistry Sodium (137 - 145 mmol/L) Cancelled 138 Potassium (3.5 - 5.1 mmol/L) Cancelled 5.3 H Chloride (98 - 107 mmol/L) Cancelled 108 H Carbon Dioxide (22 - 30 mmol/L) Cancelled 21 L Anion Gap (5 - 16) Cancelled 9 BUN (9 - 20 mg/dL) Cancelled 41 H Creatinine (0.7 - 1.2 mg/dL) Cancelled 1.6 H Estimated GFR (>60 ml/min) 41 L BUN/Creatinine Ratio (7 - 25 %) Cancelled 25.6 H Lactic Acid (0.7 - 2.1 mmol/L) Cancelled < 0.5 L Troponin I (<0.11 ng/ml) 0.06 Coagulation PT (9.4 - 12.5 SEC) 13.5 H INR (0.90 - 1.17) 1.29 H Disposition Summary Disposition Principal Diagnosis: 1. 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 Community-acquired pneumonia 3. Hyperuricemia 4. Acute on chronic kidney disease: Additional Diagnosis: 1. CLL 2. H/o Dementia Discharge Disposition: SNF Discharge Instructions General Discharge Information Code Status: Full Code Patient's Diet: Regular diet Patient's Activity: As tolerated with PT Follow-Up Instructions/Appts: 1. Please follow up with your PCP within one week of discharge. 2. Please follow up with your research lab assistant Dr. Foster in a week up on discharge 3. Please see the stomach doctor upon discharge for outpatient colonoscopy 4. Please continue to take your medications as prescribed including daily steroids and complete antibiotic course 5. Please check CBC on 08/28/16 to f/u anmeia (Hgb 8-9 on discharge) Medications at Discharge Discharge Medications: Continue taking these medications: Sertraline HCl (Zoloft) 100 MG TABLET 2 Tablet ORAL DAILY Comments: Last Taken: 08/25/16 Time: 9:00 AM Clonazepam (Clonazepam) 0.5 MG TABLET 1 Tablet ORAL DAILY Comments: NOT GIVEN IN HOSPITAL Omeprazole (Omeprazole) 40 MG CAPSULE.DR 1 Capsule ORAL DAILY Comments: Last Taken: 08/25/16 Time: 6:30 AM Aspirin (Children's Aspirin) 81 MG TAB.CHEW 1 Tablet ORAL DAILY Comments: NOT GIVEN IN HOSPTIAL Budesonide/Formoterol Fumarate (Symbicort 160-4.5 Mcg Inhaler) 160 MCG-4.5 MCG/ ACTUATION HFA.AER.AD 2 Puff Inhale through mouth TWICE DAILY Comments: Last Taken: 08/25/16 Time: 9:00 AM Rivastigmine (Exelon) 13.3 MG/24 HOUR PATCH.TD24 1 Patch On the skin DAILY Comments: Last Taken: 08/25/16 Time: 9:00 AM Memantine HCl (Namenda) 10 MG TABLET 1 Tablet ORAL TWICE DAILY Comments: Last Taken: 08/25/16 Time: 9:00 AM Ferrous Sulfate (Ferosul) 325 MG (65 MG IRON) TABLET 1 Tablet ORAL DAILY Comments: Last Taken: 08/25/16 Time: 9:00 AM Quetiapine Fumarate (Quetiapine Fumarate) 25 MG TABLET 1 Tablet ORAL Every night Qty = 60 Comments: Last Taken: 08/25/16 Time: 9:00 PM Levothyroxine Sodium (Levothyroxine Sodium) 25 MCG TABLET 1 Tablet ORAL DAILY Comments: Last Taken: 08/25/16 Time: 6:30 AM Start taking the following new medications: Cyanocobalamin (Vitamin B-12) 1,000 MCG TABLET 1,000 Microgram ORAL DAILY Qty = 30 No Refills Comments: Last Taken: 08/25/16 Time: 9:00 AM Folic Acid (Folic Acid) 1 MG TABLET 1 Milligram ORAL DAILY Qty = 30 No Refills Comments: Last Taken: 08/25/16 Time: 9:00 AM Allopurinol (Allopurinol) 100 MG TABLET 100 Milligram ORAL DAILY Qty = 30 No Refills Comments: Last Taken: 08/25/16 Time: 9:00 AM Prednisone (Prednisone) 20 MG TABLET 60 Milligram ORAL DAILY Qty = 30 No Refills Comments: Last Taken: 08/25/16 Time: 9:00 AM Augmentin (Augmentin 500-125 Tablet) 500 MG-125 MG TABLET 500 Milligram ORAL EVERY 12 HOURS Qty = 3 No Refills Comments: Last Taken: 08/25/16 Time: 8:00 AM Copies To: EDEN TRUONG,[facility]; LYNDSEY TRUONG,GUS Vieira; AMAIRANI TRUONG,LUIS MIGUEL Burgos; SHAMIKA TRUONG,TISH Sloan
[2016-08-24 07:52] LABS: ABSOLUTE BASOPHIL COUNT 0 /CUMM (0.0-0.2); ABSOLUTE EOSINOPHIL COUNT 0 /CUMM (0.0-0.7); ABSOLUTE LYMPH COUNT 13.1 /CUMM (1.2-3.4); ABSOLUTE MONOCYTE COUNT 0.4 /CUMM (0.10-0.60); BASOPHIL % 0.2 % (0.0-2.0); EOSINOPHIL % 0.2 % (0-5); HEMATOCRIT 26.6 % (42-52); MEAN CORPUSCULAR HGB 32.3 PG (27.0-31.0); MEAN CORPUSCULAR HGB CONC 32.3 G/DL (33.0-37.0); MEAN CORPUSCULAR VOLUME 99.9 FL (80.0-94.0); MEAN PLATELET VOLUME 7.7 FL (7.4-10.4); PLATELET COUNT 94 /CUMM (130-400); RBC DISTRIBUTION WIDTH 16.1 % (11.5-14.5); RED BLOOD CELL CT 2.66 /CUMM (4.70-6.10); WHITE BLOOD CELL COUNT 16.5 /CUMM (4.8-10.8)
--- NOTE | 2016-08-24 07:54 | PN- Housestaff ---
WILLIAM TRUONG,JA 08/24/16 0753: Subjective Follow-up For: Symptomatic anemia Subjective: Patient appears comfortable with no acute distress Able to answer questions appropriately. -As per nursing has sundowning but otherwise is appropriately during the daytime Denies nausea, vomiting, abdominal pain, chest pain, difficulty breathing Review of Systems Constitutional: Reports: see HPI. Objective Last 24 Hrs of Vital Signs/I&O Vital Signs Date Time Temp Pulse Resp B/P Pulse O2 O2 Flow FiO2 Ox Delivery Rate 08/24 1315 94 Room Air 08/24 1126 Room Air 2.0L 08/24 0800 92 Room Air Room Air 08/24 0656 97.8 80 20 116/50 90 Room Air 08/24 0000 Nasal 2.0L Cannula 08/23 2233 98.1 84 20 128/62 96 Room Air 08/23 1600 98 Nasal 2.0L Cannula 08/23 1600 98.7 79 20 124/55 98 Nasal 2.0L Cannula Intake & Output 08/24 1600 08/24 0800 08/24 0000 Intake Total 400 Output Total 1 Balance 399 Intake, Oral 400 Number 1 1 Bowel Movements Output, Stool 1 Physical Exam General Appearance: Alert, Oriented X3, Cooperative, No Acute Distress Skin: No Rashes Cardiovascular: Regular Rate, Normal S1, Normal S2, No Murmurs Lungs: Clear to Auscultation Abdomen: Normal Bowel Sounds, Soft, No Tenderness Neurological: Normal Speech Extremities: No Clubbing, No Cyanosis, No Edema Current Medications: Current Medications Sig/Pita Start time Last Medication Dose Route Stop Time Status Admin Albuterol Sulfate 3 ML Q4P PRN 08/21 2215 AC 08/22 INH 2240 Allopurinol 100 MG DAILY 08/22 1230 AC 08/24 PO 0958 Amoxicillin/ 875 MG Q12 08/25 1000 AC Clavulanate Potassium PO Azithromycin 500 MG DAILY 08/22 1000 DC 08/24 Sodium Chloride 250 ML IV 0953 Budesonide/ 2 PUF BID 08/21 2200 AC 08/24 Formoterol Fumarate INH 0959 Ceftriaxone Sodium 1,000 MG DAILY 08/22 1000 DC 08/24 IV 0953 Cyanocobalamin 1,000 MCG DAILY 08/22 1045 AC 08/24 PO 0958 Ferrous Sulfate 325 MG DAILY 08/24 1000 AC 08/24 PO 0958 Folic Acid 1 MG DAILY 08/22 1315 AC 08/24 PO 0958 Hydrocortisone 100 MG .STK-MED ONE 08/23 1416 DC Sodium Succinate IM 08/23 1417 Levothyroxine Sodium 0.025 MG DAILY 08/22 1000 AC 08/24 PO 0958 Lidocaine 1 HEATHER .STK-MED ONE 08/23 1453 DC TOP 08/23 1454 Lidocaine 50 ML .STK-MED ONE 08/23 1453 DC TOP 08/23 1454 Memantine 10 MG BID 08/210 AC 08/24 PO 0958 Methylprednisolone 40 MG Q12 08/21 2200 DC 08/23 IV 1021 Omeprazole 40 MG DAILY AC 08/24 0929 AC 08/24 PO 0958 Pantoprazole Sodium 40 MG BID 08/21 1201 DC 08/23 IV 1052 Prednisone 60 MG DAILY 08/24 1000 AC 08/24 PO 1046 Quetiapine Fumarate 25 MG QPM 08/21 2200 AC 08/22 PO 2126 Rivastigmine 13.8 MG Q24 08/22 1000 AC 08/24 TOP 0958 Sertraline HCl 200 MG DAILY 08/22 1000 AC 08/24 PO 0958 Last 24 Hrs of Lab/Nilesh Results Last 24 Hrs of Labs/Mics: Laboratory Tests 08/24/16 0628: Anion Gap 8, Estimated GFR 44 L, BUN/Creatinine Ratio 22.7, Total Bilirubin 2.1 H, Direct Bilirubin 0.6 H, AST 17, ALT 32, Alkaline Phosphatase 50, Lactate Dehydrogenase 597, Total Protein 5.2 L, Albumin 3.2 L, CBC w Diff MAN DIFF ORDERED, RBC 2.66 L, MCV 99.9 H, MCH 32.3 H, RDW 16.1 H, MPV 7.7, Gran % 18.0 L, Lymphocytes % 79.4 H, Monocytes % 2.2, Eosinophils % 0.2, Basophils % 0.2, Absolute Granulocytes 3.0, Absolute Lymphocytes 13.1 H, Absolute Monocytes 0.4, Absolute Eosinophils 0, Absolute Basophils 0, Platelet Estimate DECREASED, Polychromasia 1+, Poikilocytosis 1+, Anisocytosis 1+, Macrocytic Cells 1+, Ovalocytes 1+, PUBS MCHC 32.3 L Assessment/Plan Assessment: 86-year-old male, with past medical history of CLL diagnosed 2014 without chemotherapy, asthma, diverticulosis coli, Parkinson's, dementia, cardiomyopathy with low EF, post AICD/PPM, intermittent mild renal insufficiency, radical prostatectomy > 20 years ago for prostate CA, LLL wedge resection 12/2010 for moderately differentiated adeno Ca lung (w/o CTX), presenting for increased confusion, found to have severe anemia with hb of 4.8. Pt admitted to ICU, with the following problems addressed: # Symptomatic anemia, AIHA in the settings of CLL vs GI blood loss # Tumor lysis? # Pneumonia # COPD # JASEN on CKD # Symptomatic anemia, AIHA in the settings of CLL vs GI blood loss - Status post endoscopy with cauterization of vascular ectasia - H&H stable since procedure - Will need outpatient colonoscopy upon discharge - If patient able to tolerate regular diet we will consider discharging him - Was evaluated by physical therapy and recommended acute short-term rehabilitation - We will change IV Solu-Medrol to by mouth prednisone at 1 mg/kg body weight daily -Discussed with the supervisor sheet manufacturing who recommended to continue current dose and follow-up as an outpatient for further prednisone taper - We'll continue vitamin B12 and folic acid - Discussed with GI who recommended to restart aspirin upon discharge. # Tumor lysis? - We will continue allopurinol 100 daily # Thrombocytopenia -Stable # Leukocytosis - Improving today # Pneumonia - Currently on IV ceftriaxone and azithromycin for community-acquired pneumonia -We'll change it to by mouth and a complicated total course of 5 days # JASEN on CKD (baseline cr 1.4) - Mostly prerenal -Improving # Continue home meds Sertraline Rivastigmine Memantine Levothyroxine Quetiapine Diet: Tolerating diet well, advanced to regular today DVT ppx: mech (no pharm due to anemia) FULL CODE Consults: heme/onc, GI, ST Labs: ICU bundle, CBC , direct bilirubin, LDH Problem List: 1. CLL (chronic lymphocytic leukemia) 2. GERD (gastroesophageal reflux disease) 3. Symptomatic anemia 4. Confusion Pain Ratin Pain Location: No pain Pain Goal: Remain pain free Pain Plan: As mentioned in medications Tomorrow's Labs & Rationales: Will follow BLAKE GONZALEZ MD 08/24/16 0927: Attending MD Review Statement Attending Statement Attending MD Statement: examined this patient, discuss w/resident/PA/DUMPMAN, agreed w/resident/PA/DUMPMAN, reviewed EMR data (avail), discussed with nursing, discussed with case mgmt Attending Assessment/Plan: Patient seen by physical therapy today and he was a moderate assist and needs rehabilitation. He had gastric fundic ectasias and a small hiatal hernia. We have advanced his diet and will switch him to by mouth Protonix today and by mouth steroids today. We are treating CLL with an autoimmune hemolytic anemia and blood loss anemia from gastric fundic ectasias. We are also treating his pneumonia and we can safely switch him to by mouth antibiotics for a total of 7 days. Will have to speak to his today about the STR issue and start working on placement.
--- NOTE | 2016-08-24 12:20 | PN- Hematology ---
Subjective Subjective: He feels well. He is still disoriented. He did undergo EGD by Dr. Herman which demonstrated fundic vascular ectasia with bleeding. This was cauterized. Review of Systems: Constitutional: Denies: chills, fever. Cardiovascular: Denies: chest pain. Respiratory: Denies: short of breath. Gastrointestinal: Denies: abdominal pain. Musculoskeletal: Denies: back pain. Neurological/Psychological: Reports: confusion. All Other Systems: Reviewed and Negative (limited due to dementia) Objective Vital Signs and I&Os Vital Signs Date Time Temp Pulse Resp B/P Pulse O2 O2 Flow FiO2 Ox Delivery Rate 08/24 1126 Room Air 2.0L 08/24 0656 97.8 80 20 116/50 90 Room Air 08/24 0000 Nasal 2.0L Cannula 08/23 2233 98.1 84 20 128/62 96 Room Air 08/23 1600 98 Nasal 2.0L Cannula 08/23 1600 98.7 79 20 124/55 98 Nasal 2.0L Cannula 08/23 1348 95 Nasal 2.0L Cannula 08/23 1216 98.6 74 14 122/58 97 Nasal 2.0L Cannula Intake & Output 08/24 1600 08/24 0800 08/24 0000 08/23 1600 08/23 0800 08/23 0000 Intake Total 400 540 Output Total 1 Balance 399 540 Intake, IV 300 Intake, Oral 400 240 Number 1 1 4 3 3 Bowel Movements Output, Stool 1 Physical Exam: General Appearance: alert, comfortable, on 2L NC Head: atraumatic Respiratory: normal breath sounds, no respiratory distress, quiet respiration Cardiovascular: regular rate/rhythm Abdomen: normal bowel sounds, non-tender, splenomegaly Back: normal inspection Extremities: normal inspection, no edema Neurologic/Psychiatric: awake, alert, oriented to self only Current Medications: Current Medications Sig/Pita Start time Last Medication Dose Route Stop Time Status Admin Albuterol Sulfate 3 ML Q4P PRN 08/21 2215 AC 08/22 INH 2240 Allopurinol 100 MG DAILY 08/22 1230 AC 08/24 PO 0958 Amoxicillin/ 875 MG Q12 08/25 1000 AC Clavulanate Potassium PO Azithromycin 500 MG DAILY 08/22 1000 DC 08/24 Sodium Chloride 250 ML IV 0953 Budesonide/ 2 PUF BID 08/21 2200 AC 08/24 Formoterol Fumarate INH 0959 Ceftriaxone Sodium 1,000 MG DAILY 08/22 1000 DC 08/24 IV 0953 Cyanocobalamin 1,000 MCG DAILY 08/22 1045 AC 08/24 PO 0958 Ferrous Sulfate 325 MG DAILY 08/24 1000 AC 08/24 PO 0958 Folic Acid 1 MG DAILY 08/22 1315 AC 08/24 PO 0958 Hydrocortisone 100 MG .STK-MED ONE 08/23 1416 DC Sodium Succinate IM 08/23 1417 Levothyroxine Sodium 0.025 MG DAILY 08/22 1000 AC 08/24 PO 0958 Lidocaine 1 HEATHER .STK-MED ONE 08/23 1453 DC TOP 08/23 1454 Lidocaine 50 ML .STK-MED ONE 08/23 1453 DC TOP 08/23 1454 Memantine 10 MG BID 08/21 2200 AC 08/24 PO 0958 Methylprednisolone 40 MG Q12 08/21 2200 DC 08/23 IV 1021 Omeprazole 40 MG DAILY AC 08/24 0929 AC 08/24 PO 0958 Pantoprazole Sodium 40 MG BID 08/21 1201 DC 08/23 IV 1052 Prednisone 60 MG DAILY 08/24 1000 AC 08/24 PO 1046 Quetiapine Fumarate 25 MG QPM 08/21 2200 AC 08/22 PO 2126 Rivastigmine 13.8 MG Q24 08/22 1000 AC 08/24 TOP 0958 Sertraline HCl 200 MG DAILY 08/22 1000 AC 08/24 PO 0958 Results Last 24 Hours of Lab Results: Laboratory Tests 08/25 627 Chemistry Sodium (137 - 145 mmol/L) 142 Potassium (3.5 - 5.1 mmol/L) 3.7 Chloride (98 - 107 mmol/L) 108 H Carbon Dioxide (22 - 30 mmol/L) 26 Anion Gap (5 - 16) 8 BUN (9 - 20 mg/dL) 34 H Creatinine (0.7 - 1.2 mg/dL) 1.5 H Estimated GFR (>60 ml/min) 44 L BUN/Creatinine Ratio (7 - 25 %) 22.7 Total Bilirubin (0.2 - 1.3 mg/dL) 2.1 H Direct Bilirubin (< 0.4 mg/dL) 0.6 H AST (17 - 59 U/L) 17 ALT (21 - 72 U/L) 32 Alkaline Phosphatase (< 127 U/L) 50 Lactate Dehydrogenase (313 - 618 U/L) 597 Total Protein (6.3 - 8.2 g/dL) 5.2 L Albumin (3.5 - 5.0 g/dL) 3.2 L Hematology CBC w Diff MAN DIFF ORDERED WBC (4.8 - 10.8 /CUMM) 16.5 H RBC (4.70 - 6.10 /CUMM) 2.66 L Hgb (14.0 - 18.0 G/DL) 8.6 L Hct (42 - 52 %) 26.6 L MCV (80.0 - 94.0 FL) 99.9 H MCH (27.0 - 31.0 PG) 32.3 H RDW (11.5 - 14.5 %) 16.1 H Plt Count (130 - 400 /CUMM) 94 L MPV (7.4 - 10.4 FL) 7.7 Gran % (42.2 - 75.2 %) 18.0 L Lymphocytes % (20.5 - 51.1 %) 79.4 H Monocytes % (1.7 - 9.3 %) 2.2 Eosinophils % (0 - 5 %) 0.2 Basophils % (0.0 - 2.0 %) 0.2 Absolute Granulocytes (1.4 - 6.5 /CUMM) 3.0 Absolute Lymphocytes (1.2 - 3.4 /CUMM) 13.1 H Absolute Monocytes (0.10 - 0.60 /CUMM) 0.4 Absolute Eosinophils (0.0 - 0.7 /CUMM) 0 Absolute Basophils (0.0 - 0.2 /CUMM) 0 Platelet Estimate (ADEQUATE) DECREASED Polychromasia 1+ Poikilocytosis 1+ Anisocytosis 1+ Macrocytic Cells 1+ Ovalocytes 1+ PUBS MCHC (33.0 - 37.0 G/DL) 32.3 L Assessment/Plan Assessment/Recommendations: Mr. Faust is an 86-year-old male with CLL with splenomegaly and mild thrombocytopenia, CAD, CHF, pacemaker, lung cancer s/p resection, prostate cancer s/p prostatectomy, Parkinson's, and COPD who presents to the hospital with AMS and severe anemia. He has underwent EGD with some bleeding vascular ectasia. His hemoglobin is stable. He has been switched to prednisone 60 mg PO. He can remain on this for now and will taper as an outpatient. He should get 10 mg tablets to help with taper. He needs to be on a PPI or H2 gaston daily. He will follow up 1 week after discharge. Recommendations: 1. Continue prednisone 60 mg PO until follow up as outpatient 2. Colonoscopy evaluation as per GI as an outpatient 3. Continue folic and B12 supplementation 4. Continue allopurinol 100 mg daily 5. Follow up in clinic in 1 week Please call [phone] with any questions. Problem List: 1. CLL (chronic lymphocytic leukemia) 2. GERD (gastroesophageal reflux disease) 3. Symptomatic anemia 4. Confusion 5. Renal insufficiency 6. Thrombocytopenia
[2016-08-24 14:22] VITALS: BP 114/72
--- NOTE | 2016-08-24 16:26 | NUR ---
NURSING NOTE: BS PRIOR TO DINNER 280. HAD JUST GIVEN PT [employer]IL DOGS. JA THOMAS #[id number] AWARE. NO NEW ORDERS AT THIS TIME.
[2016-08-24 23:01] VITALS: BP 126/58
[2016-08-25 07:47] VITALS: BP 106/55
[2016-08-25] MEDS ORDERED: ALLOPURINOL100 M1 PO (09:06)
[2016-08-25] MEDS ORDERED: FOLIC ACID1 M1 PO (09:07)
[2016-08-25] MEDS ORDERED: PREDNISONE20 M1 PO (09:07)
[2016-08-25] MEDS ORDERED: VITAMIN B-121000 MC3 PO (09:07)
--- NOTE | 2016-08-25 09:14 | PN- Housestaff ---
WILLIAM TRUONG,JA 08/25/16 0914: Subjective Follow-up For: Symptomatic anemia Subjective: Patient appears more comfortable today. Denies any overnight events. Answers questions appropriately. Last bowel movement was yesterday. No more diarrhea. Denies chest pain, abdominal pain, nausea, vomiting. Currently saturating on room air. Review of Systems Constitutional: Reports: see HPI. Objective Last 24 Hrs of Vital Signs/I&O Vital Signs Date Time Temp Pulse Resp B/P Pulse O2 O2 Flow FiO2 Ox Delivery Rate 08/25 1048 93 Room Air Room Air 08/25 0917 97.8 68 18 106/55 08/25 0816 68 08/25 0747 97.8 110 18 106/55 92 Room Air 08/25 0000 Room Air 08/24 2301 98.0 80 18 126/58 92 Room Air 08/24 2010 92 Room Air Intake & Output 08/25 1600 08/25 0800 08/25 0000 Intake Total 480 Output Total Balance 480 Intake, Oral 480 Physical Exam General Appearance: Alert, Cooperative, No Acute Distress Skin: No Rashes Cardiovascular: Regular Rate, Normal S1, Normal S2, No Murmurs Lungs: Clear to Auscultation Abdomen: Normal Bowel Sounds, Soft, No Tenderness Neurological: Normal Speech Extremities: No Clubbing, No Cyanosis, No Edema Current Medications: Current Medications Sig/Pita Start time Last Medication Dose Route Stop Time Status Admin Albuterol Sulfate 3 ML Q4P PRN 08/21 2214 DCD 08/22 INH 2240 Allopurinol 100 MG DAILY 08/22 1230 DCD 08/25 PO 0850 Amoxicillin/ 875 MG Q12 08/25 1000 DC 08/25 Clavulanate Potassium PO 0849 Amoxicillin/ 500 MG Q12 08/25 1000 DCD Clavulanate Potassium PO Budesonide/ 2 PUF BID 08/21 2200 DCD 08/25 Formoterol Fumarate INH 0848 Cyanocobalamin 1,000 MCG DAILY 08/22 1045 DCD 08/25 PO 0849 Ferrous Sulfate 325 MG DAILY 08/24 1000 DCD 08/25 PO 0849 Folic Acid 1 MG DAILY 08/22 1315 DCD 08/25 PO 0849 Levothyroxine Sodium 0.025 MG DAILY 08/22 1000 DCD 08/25 PO 0626 Memantine 10 MG BID 08/21 2200 DCD 08/25 PO 0849 Omeprazole 40 MG DAILY AC 08/24 0929 DCD 08/25 PO 0626 Prednisone 60 MG DAILY 08/24 1000 DCD 08/25 PO 0849 Quetiapine Fumarate 25 MG QPM 08/21 2199 DCD 08/24 PO 2050 Rivastigmine 13.8 MG Q24 08/22 1000 DCD 08/25 TOP 0849 Sertraline HCl 200 MG DAILY 08/22 1000 DCD 08/25 PO 0850 Assessment/Plan Assessment: 86-year-old male, with past medical history of CLL diagnosed 2014 without chemotherapy, asthma, diverticulosis coli, Parkinson's, dementia, cardiomyopathy with low EF, post AICD/PPM, intermittent mild renal insufficiency, radical prostatectomy > 20 years ago for prostate CA, LLL wedge resection 12/2010 for moderately differentiated adeno Ca lung (w/o CTX), presenting for increased confusion, found to have severe anemia with hb of 4.8. Pt admitted to ICU, with the following problems addressed: # Symptomatic anemia, AIHA in the settings of CLL vs GI blood loss # Tumor lysis? # Pneumonia # COPD # JASEN on CKD # Symptomatic anemia, AIHA in the settings of CLL vs GI blood loss - Status post endoscopy with cauterization of vascular ectasia - H&H stable since procedure - Will need outpatient colonoscopy upon discharge - Was evaluated by physical therapy and recommended acute short-term rehabilitation - We will change IV Solu-Medrol to by mouth prednisone at 1 mg/kg body weight daily -Discussed with the insurance sales manager who recommended to continue current dose and follow-up as an outpatient for further prednisone taper - We'll continue vitamin B12 and folic acid - Discussed with GI who recommended to restart aspirin upon discharge. - f/u CBC as outpatient to monitor H/H # Tumor lysis? - We will continue allopurinol 100 daily # Thrombocytopenia -Stable # Leukocytosis - Improving today # Pneumonia - Currently on IV ceftriaxone and azithromycin for community-acquired pneumonia -We'll change it to by mouth abx for a total course of 5 days # JASEN on CKD (baseline cr 1.4) - Mostly prerenal -Improving # Continue home meds Sertraline Rivastigmine Memantine Levothyroxine Quetiapine Diet: Tolerating diet well, advanced to regular today DVT ppx: mech (no pharm due to anemia) FULL CODE Consults: heme/onc, GI, ST Labs: ICU bundle, CBC , direct bilirubin, LDH Problem List: 1. CLL (chronic lymphocytic leukemia) 2. Symptomatic anemia Pain Ratin Pain Location: None Pain Goal: Remain pain free Pain Plan: Not needed Tomorrow's Labs & Rationales: D/c today Consulting Request: Consulting Specialty: Hematology/Oncology BLAKE GONZALEZ MD 08/25/16 1405: Attending MD Review Statement Attending Statement Attending MD Statement: examined this patient, discuss w/resident/PA/AUDIO NARRATOR, agreed w/resident/PA/AUDIO NARRATOR, discussed with family, reviewed EMR data (avail), discussed with case mgmt, reviewed images Attending Assessment/Plan: Pt is upset about going to rehabilitation but understands that he needs to get his strength back. He is an 86-year-old with multifactorial anemia who is being discharged on B12, folate, iron and steroids for autoimmune hemolysis with a by mouth PPI. The resident confirmed that GI is okay with the low-dose aspirin and close outpatient follow-up.
[2016-08-25 09:17] VITALS: BP 106/55
[2016-08-25] MEDS ORDERED: AUGMENTIN 500-1 EACH PO (10:07)
== END 2016-08-25 11:39 | DRG 840 ==
LOC: ENRESERVTM → CANRESERV → ENRESERVDT → ERH 05:56 → ERHI 10:46 → CRI 10:46 → 2NB 10:46 → ENPENDDIS 10:46 → EDBEDREQ 13:40 → ERHI 14:21 → CRI 14:49 → 2NB 08-22 14:28
PROVIDERS: Emergency Medicine; Internal Medicine; Radiology Diagnostic Radiology; Student in an Organized Health Care Education/Training Program; ADMIT Internal Medicine
PROC: 30233N1 Transfusion of Nonautologous Red Blood Cells into Peripheral Vein, Percutaneous Approach (ICD-10-PCS; 2016-08-21)
PROC: 0D568ZZ Destruction of Stomach, Via Natural or Artificial Opening Endoscopic (ICD-10-PCS; principal; 2016-08-23)
DX: C91.10 Chronic lymphocytic leukemia of B-cell type not having achieved remission (principal); J18.9 Pneumonia, unspecified organism; N17.9 Acute kidney failure, unspecified; I42.9 Cardiomyopathy, unspecified; F05 Delirium due to known physiological condition; D59.1 Other autoimmune hemolytic anemias; K31.811 Angiodysplasia of stomach and duodenum with bleeding; I50.22 Chronic systolic (congestive) heart failure; D62 Acute posthemorrhagic anemia; G20 Parkinson's disease; J44.9 Chronic obstructive pulmonary disease, unspecified; E87.5 Hyperkalemia; F02.80 Dementia in other diseases classified elsewhere, unspecified severity, without behavioral disturbance, psychotic disturbance, mood disturbance, and anxiety; J45.909 Unspecified asthma, uncomplicated; Z95.0 Presence of cardiac pacemaker; Z85.46 Personal history of malignant neoplasm of prostate; Z85.118 Personal history of other malignant neoplasm of bronchus and lung; E03.9 Hypothyroidism, unspecified; F41.9 Anxiety disorder, unspecified; F32.9 Major depressive disorder, single episode, unspecified; D69.6 Thrombocytopenia, unspecified; Z87.891 Personal history of nicotine dependence; K44.9 Diaphragmatic hernia without obstruction or gangrene; K21.9 Gastro-esophageal reflux disease without esophagitis
CPT/HCPCS: 2NBSP; 83921; CCU; 36415; 74176; 81001; 82436; 83010; 86920; 86922; 87040; 87070; 87086; 87449; 87450; 87804; 87804-59; 93005; 93010; 93306; 96361; 96365; 97110-GO; 97116-GO; 97162-GP; 97530-GO; J0456; J0696; J1720; J2920; J2930; J3490; J7040; P9016

== ENCOUNTER 2016-12-16 00:10 | Inpatient (IN) | payer OTHER ==
[~2016-12-16] VITALS: Ht 182.9 cm; Wt 72.1 kg
[~2016-12-16 00:10] MED LIST changes: +ALLOPURINOL100 M1 PO; +AUGMENTIN 500-1 EACH PO; +FOLIC ACID1 M1 PO; +LEVOTHYROXINE25 MCG PO; +PREDNISONE20 M1 PO; +QUETIAPINE FUMA25 M1 PO; +VITAMIN B-121000 MC3 PO
--- NOTE | 2016-12-16 00:23 | NUR ---
PT BIBA FROM HOME. PT HAS HISTORY OF LEUKEMIA, DEMENTIA AND PARKINSONS. PER PT'S FAMILY, PT HAS HAD AN INCREASE IN CONFUSION SINCE TODAY. PT WAS SEEN EARLIER AT WALK[facility]IN CLINIC FOR UPPER RESP SYMPTOMS PER EMS. PT ARRIVES TO ED ALERT WITH A TEMP OF 99.9.
--- NOTE | 2016-12-16 00:26 | ED AMS/SEIZURE/WEAK/DIZZY ---
History of Present Illness General Chief Complaint: Altered Mental Status Stated Complaint: BIBA, AMS Source: patient Exam Limitations: no limitations Vital Signs & Intake/Output Vital Signs & Intake/Output Vital Signs Date Time Temp Pulse Resp B/P B/P Pulse O2 O2 Flow FiO2 Mean Ox Delivery Rate 12/16 0159 100.8 91 Room Air 12/16 0116 103.2 12/16 0116 103.2 12/16 0033 99.9 76 20 133/88 94 Allergies Coded Allergies: NO KNOWN ALLERGIES (07/20/14) Reconcile Medications Allopurinol 100 MG TABLET 100 MG PO DAILY INCREASED URIC ACID Aspirin (Children's Aspirin) 81 MG TAB.CHEW 1 TAB PO DAILY HEART HEALTH ( Reported) Augmentin (Augmentin 500-125 Tablet) 500 MG-125 MG TABLET 500 MG PO Q12 PNA Budesonide/Formoterol Fumarate (Symbicort 160-4.5 Mcg Inhaler) 160 MCG-4.5 MCG/ ACTUATION HFA.AER.AD 2 PUF INH BID BREATHING PROBLEMS (Reported) Clonazepam 0.5 MG TABLET 1 TAB PO DAILY anxiety (Reported) Cyanocobalamin (Vitamin B-12) 1,000 MCG TABLET 1,000 MCG PO DAILY CLL Ferrous Sulfate (Ferosul) 325 MG (65 MG IRON) TABLET 1 TAB PO DAILY SUPPLEMENT (Reported) Folic Acid 1 MG TABLET 1 MG PO DAILY CLL Levothyroxine Sodium 25 MCG TABLET 1 TAB PO DAILY THYROID (Reported) Memantine HCl (Namenda) 10 MG TABLET 1 TAB PO BID DEMENTIA (Reported) Omeprazole 40 MG CAPSULE.DR 1 CAP PO DAILY GI (Reported) Prednisone 20 MG TABLET 60 MG PO DAILY AUTOIMMUNE HEMOLYTIC ANEMIA Quetiapine Fumarate 25 MG TABLET 1 TAB PO QPM MENTAL HEALTH (Reported) Rivastigmine (Exelon) 13.3 MG/24 HOUR PATCH.TD24 1 PAT TOP DAILY DEMENTIA ( Reported) Sertraline HCl (Zoloft) 100 MG TABLET 2 TAB PO DAILY DEPRESSION (Reported) Triage Note: PT BIBA FROM HOME. PT HAS HISTORY OF LEUKEMIA, DEMENTIA AND PARKINSONS. PER PT'S FAMILY, PT HAS HAD AN INCREASE IN CONFUSION SINCE TODAY. PT WAS SEEN EARLIER AT WALK[facility]IN CLINIC FOR UPPER RESP SYMPTOMS PER EMS. PT ARRIVES TO ED ALERT WITH A TEMP OF 99.9. . Triage Nurses Notes Reviewed? yes Onset: Gradual Duration: day(s): Timing: recent history Injury Environment: home Severity: moderate Modifying Factors: Worsens With: movement. Associated Symptoms: cough HPI: 86-year-old gentleman history of Parkinson's and CLL presents with cough weakness and increased lethargy and confusion for the past day. His states that they went to an urgent care center today. He was prescribed Levaquin for bronchitis. He had a chest x-ray at that time. She states that he ate his 3 meals well. However, in the evening he started becoming more confused, with visual hallucinations, and generalized weakness. He was unable to ambulate this evening. She also notes that his cough seems worse with increased phlegm. She notes no vomiting diarrhea chest pain or foul-smelling urine. He has been following regularly with his spectacle truer for CLL and his PMD. Past History Travel History Traveled to [place] past 21 day No Medical History Any Pertinent Medical History? see below for history Neurological: Parkinson's disease, dementia EENT: NONE Cardiovascular: cardiomyopathy, LOW EF S/P AICD/ PACEMAKER PLACEMENT Respiratory: asthma, adenocarcioma s/p LLL wedge resection Gastrointestinal: ACID REFLUX Hepatic: NONE Renal: intermittent mild renal insuff Musculoskeletal: NONE Psychiatric: anxiety, depression Endocrine: NONE Blood Disorders: CLL Cancer(s): leukemia, lung cancer (LLL wedge resection adenoCa), prostate cancer, CHRONIC LYMPHOCYTIC LACTATION NURSE/Reproductive: NONE History of MRSA: No History of VRE: No History of CDIFF: No Pneumonia Vaccine: 07/26/14 Influenza Vaccine: 03/28/16 Surgical History Surgical History: LEFT LOWER LOBECTOMY RADICAL PROSTATECTOMY AICD/PPM Psychosocial History Who do you live with Spouse Services at Home None What is your primary language Serbian Family History Family History, If Any: MOTHER *No pertinent family history FATHER FH: stroke Relation not specified for: colon cancer FH: colon cancer Hx Contributory? No Review of Systems Review of Systems Constitutional: Reports: no symptoms. EENTM: Reports: no symptoms. Respiratory: Reports: no symptoms. Cardiovascular: Reports: no symptoms. GI: Reports: no symptoms. Genitourinary: Reports: no symptoms. Musculoskeletal: Reports: no symptoms. Skin: Reports: no symptoms. Neurological/Psychological: Reports: no symptoms. Hematologic/Endocrine: Reports: no symptoms. Immunologic/Allergic: Reports: no symptoms. All Other Systems: Reviewed and Negative Physical Exam Physical Exam General Appearance: well developed/nourished, mild distress Head: atraumatic, normal appearance Eyes: Bilateral: normal appearance, PERRL, EOMI. Ears, Nose, Throat: normal pharynx, normal ENT inspection, dry mucosa Neck: normal inspection, supple, full range of motion Respiratory: rhonchi Cardiovascular: regular rate/rhythm Gastrointestinal: normal bowel sounds, soft, non-tender Rectal: normal rectal tone, heme negative stool, no prostate detected. Back: normal inspection Extremities: normal range of motion Neurologic/Psych: no motor/sensory deficits, awake, axox1, marked intention tremor and upper extremities bilaterally . Minimal cogwheeling at bilateral elbows Reflexes: 1+: bicep (R), bicep (L), knee (R), knee (L). Skin: intact, normal color, warm/dry, poor skin turgor Core Measures ACS in differential dx? No CVA/TIA Diagnosis: No Severe Sepsis Present: No Septic Shock Present: No Progress Differential Diagnosis: pneumonia versus bronchitis versus dehydration versus UTI versus progression of his Parkinson's disease versus other. Plan of Care: Orders Procedure Date/time Status Nothing by Mouth 12/16 B Active Patient Data 12/16 213 Active Saline Lock 12/16 205 Active Misc Message 12/16 205 Active ED Holding Orders 12/16 205 Active Admit to inpatient 12/16 205 Active Vital Signs 12/16 205 Active Code Status 12/16 205 Active CULTURE,URINE 12/16 0050 Active BLOOD CULTURE 12/16 005 Active URINALYSIS 12/16 25 Complete TROPONIN LEVEL 12/16 25 Complete COMPREHENSIVE METABOLIC PANEL 12/16 25 Complete CBC WITHOUT DIFFERENTIAL 12/16 25 Complete EKG 12/16 25 Active Current Medications Sig/Pita Start time Last Medication Dose Stop Time Status Admin Azithromycin 500 MG ONCE ONE 12/16 214 UNVr (Zithromax) 12/16 313 Sodium Chloride 250 ML (Normal Saline 0.9%) Ceftriaxone Sodium 1,000 MG ONCE ONE 12/16 214 UNVr (Rocephin) 12/17 215 Laboratory Tests 12/16/16 0050: Urinalysis MOD H, Urine Color YEL, Urine Clarity HAZY H, Urine pH 6.0, Ur Specific [place] 1.020, Urine Protein TRACE H, Urine Ketones NEG, Urine Nitrite NEG, Urine Bilirubin NEG, Urine Urobilinogen 1.0, Ur Leukocyte Esterase NEG, Ur Microscopic SEDIMENT EXAMINED, Urine RBC 3-5, Urine WBC RARE, Ur Epithelial Cells FEW, Urine Bacteria RARE H, Urine Mucus MOD H, Urine Hemoglobin TRACE- LYSED H, Urine Glucose NEG 12/16/16 0029: Anion Gap 11, Estimated GFR 48 L, BUN/Creatinine Ratio 25.0, Glucose 110 H, Calcium 8.0 L, Total Bilirubin 0.8, AST 15 L, ALT 21, Alkaline Phosphatase 58, Troponin I 0.02, Total Protein 5.4 L, Albumin 3.9, Globulin 1.5 L, Albumin/ Globulin Ratio 2.6 H, CBC w Diff NO MAN DIFF REQ, RBC 3.28 L, MCV 87.0, MCH 28.8, RDW 15.1 H, MPV 7.8, Gran % 38.1 L, Lymphocytes % 57.6 H, Monocytes % 2.9, Eosinophils % 0.7, Basophils % 0.7, Absolute Granulocytes 4.8, Absolute Lymphocytes 7.2 H, Absolute Monocytes 0.4, Absolute Eosinophils 0.1, Absolute Basophils 0.1, PUBS MCHC 33.1 Microbiology 12/16 49 URINE ROUT: Urine Culture - RECD 12/16 49 BLOOD: Blood Culture - ORD 12/16 49 BLOOD: Blood Culture - ORD Diagnostic Imaging: Viewed by Me: Radiology Read, CT Scan. Discussed w/RAD: Radiology Read, CT Scan. Radiology Impression: head ct... volume loss... full report below. CXR Impression: basilar atelectasis... full report below. Initial ED EKG: paced ekg Comments: PATIENT: DEANN MUNOZ PRESENT AGE: 86 PATIENT ACCOUNT NO: [id number] : 31 LOCATION: [facility] ORDERING PHYSICIAN: ANIRUDH HUYNH MD SERVICE DATE: 12/16/16 EXAM TYPE: CAT - CT HEAD WO IV CONTRAST EXAMINATION: CT HEAD WITHOUT CONTRAST CLINICAL INFORMATION: Mental status change COMPARISON: 09/10/2015 TECHNIQUE: Contiguous axial imaging was performed from the skull base to vertex without intravenous administration of contrast. DLP: 648 mGy-cm FINDINGS: There is no evidence of acute intracranial hemorrhage or territorial infarction. No abnormal mass effect or midline shift is seen. Bright to white matter differentiation is well preserved. No extra-axial fluid collections are identified. Moderate enlargement of the ventricles, sulci, and extra-axial CSF spaces is indicative of parenchymal volume loss. A few subtle foci of hypoattenuation in the subcortical and periventricular white matter are present, most commonly attributable to chronic microangiopathic changes. Calcific atherosclerosis is present within the cavernous and supraclinoid segments of the internal carotid arteries. The osseous structures and soft tissues are normal. There is chronic thickening of the right maxillary sinus pedro with mucoperiosteal thickening and an air-fluid level, most compatible with acute on chronic sinusitis. There is chronic wall thickening at the left maxillary sinus, likely due to changes of chronic sinusitis. Master cells are clear. IMPRESSION: No acute intracranial pathology. Moderate cerebral and cerebellar volume loss. Sequela of chronic sinusitis in both maxillary sinuses. An air fluid level and mucoperiosteal thickening in the right maxillary sinus are indicative of acute on chronic sinusitis. DICTATED BY: BROCK SALTER MD DATE/TIME DICTATED:12/16/16113 [employer]ACH[employer]:JAMMIE DATE/TIME TRANSCRIBED:12/16/16113 CONFIDENTIAL, DO NOT COPY WITHOUT APPROPRIATE AUTHORIZATION. <Electronically signed in Other Vendor System> SIGNED BY: BROCK SALTER MD 12/16/16 012 PATIENT: DEANN MUNOZ PRESENT AGE: 86 PATIENT ACCOUNT NO: [id number] : 31 LOCATION: [facility] ORDERING PHYSICIAN: ANRIUDH HUYNH MD SERVICE DATE: 12/16/16 EXAM TYPE: RAD - XRY-PORTABLE CHEST XRAY EXAMINATION: XR PORTABLE CHEST CLINICAL INFORMATION: Cough. COMPARISON: 03/28/2015 TECHNIQUE: Portable frontal view of the chest was obtained. FINDINGS: AICD overlies the left upper thorax with leads terminating in the right atrium, right ventricle, and coronary sinus, unchanged. Calcific atherosclerosis is present in the thoracic aorta. Lung volumes are low. Cardiac silhouette is within normal limits in size for technique. Atelectasis is present in the lung bases. Pulmonary vasculature is normal. No pneumothorax. No acute osseous abnormalities. IMPRESSION: Low lung volumes with bibasilar atelectasis. No focal consolidation. DICTATED BY: BROCK SALTER MD DATE/TIME DICTATED:12/16/1653 [employer]ACH[employer]ES:COLON DATE/TIME TRANSCRIBED:12/16/1653 CONFIDENTIAL, DO NOT COPY WITHOUT APPROPRIATE AUTHORIZATION. <Electronically signed in Other Vendor System> SIGNED BY: BROCK SALTER MD 12/16/1658 Departure Departure Disposition: STILL A PATIENT Condition: Stable Clinical Impression Primary Impression: Bronchitis Secondary Impressions: CLL (chronic lymphocytic leukemia), Mental status change, Parkinsons, Sepsis Referrals: LYNDSEY TRUONG,GUS Vieira (PCP/Family) Departure Forms: Customer Survey General Discharge Information Admission Note Spoke With: BARBARA ROSE MD Documentation of Exam: Documentation of any treatments & extenuating circumstances including Concerns Regarding Discharge (functional status, medication knowledge or non-compliance, living conditions, etc.) that warrant an admission rather than observation: pt with fever 103.2, likely source is lung, given his rhonchi on exam and hypoxia... pt merits iv abx, 02 support... will also likely need short term rehab due to his worsening parkinson's, in ability to ambulate.
--- NOTE | 2016-12-16 00:28 | NUR ---
DR HUYNH AT BEDSIDE FOR EVAL.
--- NOTE | 2016-12-16 00:37 | NUR ---
PORTABLE CHEST XRAY AT BEDSIDE.
[2016-12-16 00:43] LABS: ABSOLUTE BASOPHIL COUNT 0.1 /CUMM (0.0-0.2); ABSOLUTE EOSINOPHIL COUNT 0.1 /CUMM (0.0-0.7); ABSOLUTE GRANULOCYTE CT 4.8 /CUMM (1.4-6.5); ABSOLUTE LYMPH COUNT 7.2 /CUMM (1.2-3.4); ABSOLUTE MONOCYTE COUNT 0.4 /CUMM (0.10-0.60); BASOPHIL % 0.7 % (0.0-2.0); EOSINOPHIL % 0.7 % (0-5); HEMATOCRIT 28.6 % (42-52); MEAN CORPUSCULAR HGB 28.8 PG (27.0-31.0); MEAN CORPUSCULAR HGB CONC 33.1 G/DL (33.0-37.0); MEAN PLATELET VOLUME 7.8 FL (7.4-10.4); PLATELET COUNT 107 /CUMM (130-400); RBC DISTRIBUTION WIDTH 15.1 % (11.5-14.5); RED BLOOD CELL CT 3.28 /CUMM (4.70-6.10); WHITE BLOOD CELL COUNT 12.5 /CUMM (4.8-10.8)
[2016-12-16 00:51] LABS: GRANULOCYTE % 38.1 % (42.2-75.2)
--- NOTE | 2016-12-16 00:59 | RADIOLOGY REPORT ---
EXAMINATION: XR PORTABLE CHEST CLINICAL INFORMATION: Cough. COMPARISON: 03/28/2015 TECHNIQUE: Portable frontal view of the chest was obtained. FINDINGS: AICD overlies the left upper thorax with leads terminating in the right atrium, right ventricle, and coronary sinus, unchanged. Calcific atherosclerosis is present in the thoracic aorta. Lung volumes are low. Cardiac silhouette is within normal limits in size for technique. Atelectasis is present in the lung bases. Pulmonary vasculature is normal. No pneumothorax. No acute osseous abnormalities. IMPRESSION: Low lung volumes with bibasilar atelectasis. No focal consolidation.
--- NOTE | 2016-12-16 01:22 | CT SCAN REPORT ---
EXAMINATION: CT HEAD WITHOUT CONTRAST CLINICAL INFORMATION: Mental status change COMPARISON: 09/10/2015 TECHNIQUE: Contiguous axial imaging was performed from the skull base to vertex without intravenous administration of contrast. DLP: 648 mGy-cm FINDINGS: There is no evidence of acute intracranial hemorrhage or territorial infarction. No abnormal mass effect or midline shift is seen. Bright to white matter differentiation is well preserved. No extra-axial fluid collections are identified. Moderate enlargement of the ventricles, sulci, and extra-axial CSF spaces is indicative of parenchymal volume loss. A few subtle foci of hypoattenuation in the subcortical and periventricular white matter are present, most commonly attributable to chronic microangiopathic changes. Calcific atherosclerosis is present within the cavernous and supraclinoid segments of the internal carotid arteries. The osseous structures and soft tissues are normal. There is chronic thickening of the right maxillary sinus pedro with mucoperiosteal thickening and an air-fluid level, most compatible with acute on chronic sinusitis. There is chronic wall thickening at the left maxillary sinus, likely due to changes of chronic sinusitis. Master cells are clear. IMPRESSION: No acute intracranial pathology. Moderate cerebral and cerebellar volume loss. Sequela of chronic sinusitis in both maxillary sinuses. An air fluid level and mucoperiosteal thickening in the right maxillary sinus are indicative of acute on chronic sinusitis.
--- NOTE | 2016-12-16 01:22 | NUR ---
PT MEDICATED WITH TORADOL, OFIRMEV AND NS INFUSING PER EMAR.
--- NOTE | 2016-12-16 02:00 | NUR ---
DR HUYNH AT BEDSIDE FOR RECTAL EXAM.
--- NOTE | 2016-12-16 02:13 | History & Physical ---
CHASIDY TRUONG,[facility] 12/16/16 0212: General Information and HPI MD Statement: I have seen and personally examined DEANN MUNOZ and documented this H&P. The patient is a 86 year old M who presented with a patient stated chief complaint of [confusion and weakness]. Source of Information: family Exam Limitations: confusion History of Present Illness: is a 86 year old gentlemman with PMH significant for Asthma,CLL, Parkinson disease, Lung cancer s/p surgical resection, CMP s/p pacemaker and AICD comes in with confusion and weakness. According to the patient has been congested for the past 2 months and he has been seeing doctors on and off for his congestion.Completed a course of Z-Patricio in october without any improvement. This morning the patient had been to an urgent care clinic where he was started on levaquin. He took only 1 dose of livaquin in thr morning and by evening the patient was confused, hallucinating and was unable to walk, so the decided to call the ambulance. Has some cough to clear the mucus. also mentions their son being sick with upper respiratory symptoms since sunday. [facility] he was treated for ABLA, AIHA s/p 4 PRBCs transfusions and pneumonia with Augmentin. Patient follows up with for his CLL but is currently not on any medications. Allergies/Medications Allergies: Coded Allergies: NO KNOWN ALLERGIES (07/20/14) Home Med list Allopurinol 100 MG TABLET 100 MG PO DAILY INCREASED URIC ACID Aspirin (Children's Aspirin) 81 MG TAB.CHEW 1 TAB PO DAILY HEART HEALTH ( Reported) Augmentin (Augmentin 500-125 Tablet) 500 MG-125 MG TABLET 500 MG PO Q12 PNA Budesonide/Formoterol Fumarate (Symbicort 160-4.5 Mcg Inhaler) 160 MCG-4.5 MCG/ ACTUATION HFA.AER.AD 2 PUF INH BID BREATHING PROBLEMS (Reported) Clonazepam 0.5 MG TABLET 1 TAB PO DAILY anxiety (Reported) Cyanocobalamin (Vitamin B-12) 1,000 MCG TABLET 1,000 MCG PO DAILY CLL Ferrous Sulfate (Ferosul) 325 MG (65 MG IRON) TABLET 1 TAB PO DAILY SUPPLEMENT (Reported) Folic Acid 1 MG TABLET 1 MG PO DAILY CLL Levofloxacin (Levaquin) 500 MG TABLET 1 TAB PO DAILY INFECTION (Reported) Levothyroxine Sodium 25 MCG TABLET 1 TAB PO DAILY THYROID (Reported) Memantine HCl (Namenda) 10 MG TABLET 1 TAB PO BID DEMENTIA (Reported) Omeprazole 40 MG CAPSULE.DR 1 CAP PO DAILY GI (Reported) Prednisone 5 MG TABLET 1 TAB PO DAILY CLL (Reported) Prednisone 20 MG TABLET 60 MG PO DAILY AUTOIMMUNE HEMOLYTIC ANEMIA Quetiapine Fumarate 25 MG TABLET 1 TAB PO QPM MENTAL HEALTH (Reported) Rivastigmine (Exelon) 13.3 MG/24 HOUR PATCH.TD24 1 PAT TOP DAILY DEMENTIA ( Reported) Sertraline HCl (Zoloft) 100 MG TABLET 2 TAB PO DAILY DEPRESSION (Reported) Past History Travel History Traveled to April past 21 day No Medical History Neurological: Parkinson's disease, dementia EENT: NONE Cardiovascular: cardiomyopathy, LOW EF S/P AICD/ PACEMAKER PLACEMENT Respiratory: asthma, adenocarcioma s/p LLL wedge resection Gastrointestinal: ACID REFLUX Hepatic: NONE Renal: intermittent mild renal insuff Musculoskeletal: NONE Psychiatric: anxiety, depression Endocrine: NONE Blood Disorders: CLL Cancer(s): leukemia, lung cancer (LLL wedge resection adenoCa), prostate cancer, CHRONIC LYMPHOCYTIC ELIGIBILITY COUNSELOR/Reproductive: NONE History of MRSA: No History of VRE: No History of CDIFF: No Pneumonia Vaccine: 07/26/14 Influenza Vaccine: 03/28/16 Surgical History Surgical History: LEFT LOWER LOBECTOMY RADICAL PROSTATECTOMY AICD/PPM Past Family/Social History Family History Relations & Conditions if any MOTHER *No pertinent family history FATHER FH: stroke Relation not specified for: colon cancer FH: colon cancer Psychosocial History Who Do You Live With? spouse Services at Home: None Primary Language: Uzbek (demented) Living Will? no Power of Broadcast Technician/HCP? yes Name of POA/HCP: pt's , Kandis Munoz [id number]/[phone] Functional Ability ADLs Needs Assist: dressing, eating, toileting, bathing. Ambulation: unknown IADLs Needs Assist: shopping, housework, finances, food prep, telephone, transportation, medication admin. Review of Systems Review of Systems Constitutional: Reports: see HPI. Respiratory: Reports: see HPI. Musculoskeletal: Reports: muscle stiffness. Exam & Diagnostic Data Last 24 Hrs of Vital Signs/I&O Vital Signs Date Time Temp Pulse Resp B/P B/P Pulse O2 O2 Flow FiO2 Mean Ox Delivery Rate 12/16 0800 Nasal 2.0L Cannula 12/16 0700 97.8 74 20 118/52 95 12/16 0615 Nasal 2.0L Cannula 12/16 0535 99.0 77 20 113/55 98 Nasal 2.0L Cannula 12/16 0445 99.0 80 20 102/54 98 Nasal 2.0L Cannula 12/16 0159 100.8 91 Room Air 12/16 0116 103.2 12/16 0116 103.2 12/16 0033 99.9 76 20 133/88 94 Intake & Output 12/16 1600 12/16 0800 12/16 0000 Intake Total 75 Output Total Balance 75 Intake, IV 75 Intake, Oral 0 Patient 159 lb Weight Weight Estimated Measurement Method Physical Exam General Appearance Oriented X3, Cooperative Skin No Rashes, No Breakdown HEENT Atraumatic, PERRLA, EOMI Neck Supple, No JVD Lymphatic Cervical nl Cardiovascular Regular Rate, Normal S1, Normal S2, No Murmurs Lungs Ronchi bilaterally Abdomen Normal Bowel Sounds, Soft, No Tenderness Assessment/Plan Assessment: 6-year-old gentleman from home with past medical history significant for Parkinson's disease, ? Dementia cardiomyopathy with low EF status post AICD placement, prostate cancer status post radial prostatectomy, lung cancer status post lower lobe resection 6 years ago, history of CLL brought to hospital by for worsening confusion and weakness. A/P 1. SIRS: -Febrile to 103 on admission, could most likely be secondary to pneumonia despite negative imaging as dehydration could mask pneumonia on imaging. Could do a CT contrast without to look for any consolidation. -Will continue IV ceftriaxone and azithromycin, -Lactic acid came back normal. -Follow-up blood cultures, sputum culture, Legionella and strep urine antigen -Follow-up CPK, phosphate, urate -In view of his low EF of 30-45%, echo done in July 2016 will cautiously hydrate him at 75 mL per hour for 1 L and reassess. Trend EKG and serial troponin for demand ischemia. -Strict I's and O's -Patient kept nothing by mouth, swallow evaluation will be done in morning 2. CLL: Heam/Onc consulted. Will continue with 5 mg of prednisone which he is his current dose Continue home medications of allopurinol, aspirin, Symbicort, clonazepam, levothyroxin, Namenda, physical, Seroquel, Zoloft, Exelon pending swallow eval and improved mentation DVT prophylaxis with subcutaneous heparin Patient is a full code [place] is his area for its cell #[phone], home number [phone] As Ranked By This Provider Problem List: 1. Cardiomyopathy 2. Dementia 3. Fever 4. Malignant tumor of prostate 5. Pneumonia 6. Parkinsons 7. Altered mental state 8. CLL (chronic lymphocytic leukemia) Core Measures/Miscellaneous Acute Coronary Syndrome ACS Diagnosis: No Cerebrovascular Accident CVA/TIA Diagnosis: No Congestive Heart Failure CHF Diagnosis: No VTE (View Protocol) VTE Risk Factors: Acute medical illness, Age > [address] [facility] VTE prophylaxis d/t: VTE low risk (.) No VTE Pharm Prophylaxis d/t: VTE low risk (.) VTE Diagnosis: No VTE Type: NONE VTE Confirmed by (Test): NONE Sepsis (View Protocol) Severe Sepsis Present: No Septic Shock Septic Shock Present: No Miscellaneous Documentation Attending Case Discussed With: BARBARA ROSE MD Primary Care Physician: GUS SOLORIO MD Patient sees these Specialists . Level of Patient Care: General Medicine PRECIOUS TOBIASGERIAmando 12/16/16 0351: Resident Review Statement Resident Statement: examined this patient, discussed with sports apparel internship, agreed with sports apparel internship Other Findings: 86-year-old gentleman from home with past medical history significant for Parkinson's disease, ? 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 Most of the history was obtained from the as patient was unable to give history due to clinical condition. Since the past 2 months he's been having "congestion" on and off. Per in September he completed Z-Patricio which did not improve. After going back to see his PCP a CT chest done on10/27/2016 did not show any acute changes. Since the last one week he has gotten progressively weaker until yesterday when his confusion became very severe and she decided to call the ambulance. Reports sick contacts which his son with upper respiratory symptoms on Sunday Vitals on admission MAXIMUM TEMPERATURE 103.5 rectally, blood pressure 1 33/ 88, saturating 91% on room air. On examination obtunded pupils pinpoint and minimally reactive, CVS unremarkable RS scattered wheezing, benign abdominal examination no edema noted. Cogwheel rigidity in bilateral upper extremities. Labs on admission lymphocytic leukocytosis, normocytic anemia, platelet 107 which is his baseline hypocalcemia, sodium 139, potassium 4.3, BUN 35, creatinine 1.4 LFTs were normal UA negative. Imaging head CT showed acute on chronic sinusitis, chest x-ray showed only calcific atherosclerosis no acute pathology. EKG showed paced rhythm. ED course: Was given 1 dose of IV ceftriaxone and azithromycin. His blood pressure dropped down to 90 x 51 which responded to 500 mL bolus Assessment: 86-year-old gentleman admitted to general medicine floor as he meets SIRS criteria and the following issues will be addressed 1. Sirs Febrile to 103 on admission, could most likely be secondary to pneumonia despite negative imaging as dehydration could mask pneumonia on imaging. Will continue IV ceftriaxone and azithromycin, Lactic acid normal Follow-up blood cultures, sputum culture, Legionella and strep urine antigen Follow-up CPK, phosphate, urate In view of his low EF of 30-45%, echo done in July 2016 will cautiously hydrate him at 75 mL per hour for 1 L and reassess Patient kept nothing by mouth, swallow eval in the morning 2. CLL Consult placed with oncology Will continue with 5 mg of prednisone which he is his current dose Continue home medications of allopurinol, aspirin, Symbicort, clonazepam, levothyroxin, Namenda, physical, Seroquel, Zoloft, Exelon pending swallow eval and improved mentation DVT prophylaxis with subcutaneous heparin Patient is a full code POAmando is his cell #[phone], home number [phone] BARBARA ROSE 12/16/16 0448: Attending MD Review Statement Attending Statement Attending MD Statement: examined this patient, discuss w/resident/PA/CANOE INSPECTOR, agreed w/resident/PA/CANOE INSPECTOR, discussed with family, reviewed EMR data (avail), reviewed images, amended to note Attending Assessment/Plan: CC: AMS PMH: COPD, dementia, Parkinson's disease, cardiomyopathy with HFrEF parent this is EF 40%), S/P AICD, prostate cancer S/P surgery, lung cancer S/P surgery, CLL, 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 According to her patient has been getting on and off symptoms of chest congestion, sinus congestion since 2 months, she he coughs on and off to clear his mucus otherwise no severe cough. Patient was not complaining any chest pain to her, patient's did not check for any fever. Patient has been ambulating and eating well until recently. But has noticed increased level of confusion since a week or so. Patient took him to urgent care today for persistent chest congestion, where an x-ray was obtained and then he was prescribed Levaquin for probable bronchitis. He took 1 dose of Levaquin at home but towards evening patient was getting more and more confused, hallucinating, irrelevant talking so she brought him to ER. ROS limited. Vitals: Tmax 103.3, HR 76, RR 20, blood pressure 133/88, saturating well on room air. On exam: Limited, patient is sleepy, arousable, follows few instructions, not oriented, mucosa dry, neck supple no lymphadenopathy, no JVD, pupils equal round reactive to light, tremors at rest, rigidity present, patient does not follow complete instructions for neurological exam. CVS: S1-S2 RRR. RS: Coarse respiratory sounds mostly transmitted sounds bilaterally, abdomen: Soft, and, M.D., bowel sounds present, exam unremarkable, no obvious skin rashes or inflammation, peripheral pulses perfusion normal. Labs: WBC 12.5, neutrophils 38%, lymphocytes 57%, hemoglobin 9.5, platelets 107, sodium 139, progression 4.3, chloride 106, bicarbonate 22, BUN 35, creatinine 1.4, glucose 110, calcium 8.0, LFT unremarkable, troponin 0.02, UA unremarkable CXR: Low lung volumes with bibasilar atelectasis. No focal consolidation. CT head: 1. No acute intracranial pathology. 2. Moderate cerebral and cerebellar volume loss. 3. Sequela of chronic sinusitis in both maxillary sinuses. An air fluid level and mucoperiosteal thickening in the right maxillary sinus are indicative of acute on chronic sinusitis. A and P 86-year-old male with multiple comorbidities presented in ER for worsening confusion, hallucinations, irrelevant talking. He was seen in urgent care today for worsening respiratory congestion and sinus congestion and was prescribed Levaquin. did not notice any fever at home or patient did not complain of any chest pain at home, has some cough to clear mucus according to his . Fever of 103.2 in ER. Patient is sleepy but arousable, follows few instructions only, Baseline tremors, rigidity otherwise neurological examination is limited, he has coarse respiratory sounds bilaterally probably transmitted sounds, does not appear to have sinus tenderness. Has some mild leukocytosis with lymphocyte predominance, anemia and thrombocytopenia which appears to be chronic secondary to CLL, increased creatinine and BUN which is chronic and at baseline. Patient has history of dementia, acute illness may have precipitated delirium in his situation. Most likely source of infection being respiratory, patient appears dehydrated gentle hydration may show up pneumonia and repeat films. 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 - OT PT evaluation ? Short-term rehabilitation placement - Check CPK, mag, phosphorus with morning labs - Consider chest x-ray PA lateral view or CT scan without IV contrast persistent febrile - DVT prophylaxis with heparin continue rest of his home medications of allopurinol, aspirin, clonazepam, B12, iron, folic acid, levothyroxine, Namenda, Seroquel and sertraline.
--- NOTE | 2016-12-16 02:59 | NUR ---
HOUSESTAFF AT BEDSIDE FOR EVAL.
--- NOTE | 2016-12-16 03:40 | NUR ---
PT TO ROOM [id number]
--- NOTE | 2016-12-16 03:53 | NUR ---
REPORT GIVEN TO KRISTEN DAVIS ON GEN MED.
[2016-12-16] MEDS ORDERED: LEVAQUIN500 M1 PO (04:15)
--- NOTE | 2016-12-16 04:49 | Admission Certification ---
Admission Certification Certification Statement - As attending physician, I certify that at the time of - admission, based on clinical presentation, severity of - symptoms, need for further diagnostic testing and - therapeutic interventions, and risk of adverse outcomes - without in-hospital treatment, in my clinical assessment, - this patient requires an acute hospital stay for a minimum - of two nights or longer. I have also considered psychsocial - factors such as support system, advanced age, financial - issues, cognitive issues, and failed out-patient treatments, - past re-admission history, safety of patient, and lack of - compliance as applicable. Specific rationale supporting this admission is: Clinical suspicion of pneumonia, history of CLL
--- NOTE | 2016-12-16 05:01 | NUR ---
DR ROMAN AT BEDSIDE.
[2016-12-16] MEDS ORDERED: PREDNISONE5 M1 PO (05:21)
--- NOTE | 2016-12-16 05:41 | NUR ---
PT'S RM ASSIGNMENT 207 ALEJA
--- NOTE | 2016-12-16 05:44 | NUR ---
PT CLEARED BY MD STOVALL TO GO TO GEN MED FLOOR
[2016-12-16 07:00] VITALS: BP 118/52
--- NOTE | 2016-12-16 08:32 | NUR ---
NURSING NOTE: LATE ENTRY. PT ARRIVED TO THE FLOOR AT 0615 BY STRETCHER FROM ED. PT IS DROWSY BUT AROUSABLE. PT IS ALERT TO PERSON AND PLACE BUT NOT TO TIME. PT HAS HISTORY OF DEMENTIA. TREMORS NOTED TO PTS BL HANDS. PT HAS HISTORY OF PARKINSONS DISEASE. SPEECH IS CLEAR. VSS AT THIS TIME AND PT REMAINS AFEBRILE. PT IS ON 2L NC AND LUNG SOUNDS ARE RONCHOROUS THROUGHOUT. NO DISTRESS NOTED. PT HAS A SCAB TO HIS R KNEE AND BLANCHABLE REDNESS TO HIS BOTTOM. PT WAS FOUND TO BE INCONTINENT WHEN HE ARRIVED TO THE FLOOR. SHEETS AND JOHN COAT CHANGED. PT RECEIVING IV FLUIDS AT 75 ML/HR. BLOODWORK AND EKG COMPLETED. ALPS IN PLACE. PT NPO AT THIS TIME FOR SWALLOW EVAL THIS AM. ABDOMEN IS RIGID. UNABLE TO FURTHER ASSESS PT BECAUSE PT IS CONFUSED AND DROWSY, AROUSABLE. AWAIT ADDITIONAL ORDERS FROM .
[2016-12-16 14:54] VITALS: BP 100/60
[2016-12-16 23:02] VITALS: BP 118/56
[2016-12-17 06:34] VITALS: BP 130/62
[2016-12-17 08:10] LABS: ABSOLUTE BASOPHIL COUNT 0.1 /CUMM (0.0-0.2); ABSOLUTE EOSINOPHIL COUNT 0.2 /CUMM (0.0-0.7); ABSOLUTE GRANULOCYTE CT 5.2 /CUMM (1.4-6.5); ABSOLUTE LYMPH COUNT 11.6 /CUMM (1.2-3.4); ABSOLUTE MONOCYTE COUNT 0.7 /CUMM (0.10-0.60); BASOPHIL % 0.3 % (0.0-2.0); EOSINOPHIL % 0.9 % (0-5); GRANULOCYTE % 29.3 % (42.2-75.2); HEMATOCRIT 28.7 % (42-52); MEAN CORPUSCULAR HGB 28.8 PG (27.0-31.0); MEAN CORPUSCULAR HGB CONC 32.5 G/DL (33.0-37.0); MEAN CORPUSCULAR VOLUME 88.7 FL (80.0-94.0); MEAN PLATELET VOLUME 8.4 FL (7.4-10.4); PLATELET COUNT 131 /CUMM (130-400); RBC DISTRIBUTION WIDTH 15.5 % (11.5-14.5); RED BLOOD CELL CT 3.24 /CUMM (4.70-6.10); WHITE BLOOD CELL COUNT 17.6 /CUMM (4.8-10.8)
--- NOTE | 2016-12-17 09:20 | PN- Housestaff ---
See Addendum Subjective Follow-up For: Pneumonia Subjective: No overnight events. He's demented, unable to give proper history. Wants to "get out of here". No complaints of pain or breathing issues. Review of Systems Constitutional: Reports: no symptoms. EENTM: Reports: no symptoms. Cardiovascular: Reports: no symptoms. Respiratory: Reports: no symptoms. Gastrointestinal: Reports: no symptoms. Genitourinary: Reports: no symptoms. Musculoskeletal: Reports: no symptoms. Skin: Reports: no symptoms. Neurological/Psychological: Reports: see HPI. Hematologic/Endocrine: Reports: no symptoms. Immunologic/Allergic: Reports: no symptoms. Objective Last 24 Hrs of Vital Signs/I&O Vital Signs Date Time Temp Pulse Resp B/P B/P Pulse O2 O2 Flow FiO2 Mean Ox Delivery Rate 12/17 0634 98.1 84 20 130/62 94 12/16 2302 98.4 86 18 118/56 95 Nasal 2.0L Cannula 12/16 1909 93 Room Air 12/16 1600 97 Nasal 2.0L Cannula 12/16 1454 98.8 73 22 100/60 94 Nasal 2.0L Cannula 12/16 1053 Nasal 2.0L Cannula 12/16 1036 97 Nasal 2.0L Cannula Intake & Output 12/17 1600 12/17 0800 12/17 0000 Intake Total 500 Output Total Balance 500 Intake, IV 300 Intake, Oral 200 Physical Exam General Appearance: Alert, Cooperative, No Acute Distress Cardiovascular: Regular Rate, Normal S1, Normal S2 Lungs: Significant expiratory wheezing and crackles bilaterally Abdomen: Normal Bowel Sounds, Soft, No Tenderness Current Medications: Current Medications Sig/Pita Start time Last Medication Dose Route Stop Time Status Admin Acetaminophen 650 MG Q6P PRN 12/16 0400 AC PO Albuterol Sulfate 3 ML BID 12/16 1025 AC 12/16 INH 1027 Allopurinol 100 MG DAILY 12/16 1000 AC 12/17 PO 0904 Aspirin 81 MG DAILY 12/16 1000 AC 12/17 PO 0904 Azithromycin 500 MG 0300 12/17 0300 AC 12/17 Sodium Chloride 250 ML IV 0336 Azithromycin 500 MG DAILY 12/16 1000 DC Sodium Chloride 250 ML IV Budesonide/ 2 PUF BID 12/16 1000 AC 12/17 Formoterol Fumarate INH 0902 Ceftriaxone Sodium 1,000 MG 0300 12/17 0300 AC 12/17 IV 0319 Ceftriaxone Sodium 1,000 MG DAILY 12/16 1000 DC IV Clonazepam 0.5 MG DAILY 12/16 1000 AC 12/17 PO 12/23 0959 0901 Cyanocobalamin 1,000 MCG DAILY 12/16 1000 AC 12/17 PO 0903 Ferrous Sulfate 325 MG DAILY 12/16 1000 AC 12/17 PO 0904 Folic Acid 1 MG DAILY 12/16 1000 AC 12/17 PO 0904 Heparin Sodium 5,000 UNIT Q8 12/16 0600 AC 12/17 (Porcine) SC 0600 Levothyroxine Sodium 0.025 MG DAILY AC 12/16 0700 AC 12/17 PO 0600 Memantine 10 MG BID 12/16 1000 AC 12/17 PO 0902 Omeprazole 40 MG DAILY AC 12/16 0700 AC 12/17 PO 0559 Prednisone 5 MG DAILY 12/16 1000 AC 12/17 PO 0902 Quetiapine Fumarate 25 MG QPM 12/16 2200 AC 12/16 PO 2140 Rivastigmine 13.8 MG DAILY 12/16 1000 AC 12/17 TOP 0907 Sertraline HCl 200 MG DAILY 12/16 1000 AC 12/17 PO 0903 Sodium Chloride 1,000 ML .[id number] 12/16 0400 DC 12/16 IV 12/16 1734 0502 Last 24 Hrs of Lab/Nilesh Results Last 24 Hrs of Labs/Mics: Laboratory Tests 12/17/16 0735: Anion Gap 11, Estimated GFR 58 L, BUN/Creatinine Ratio 20.8, CBC w Diff MAN DIFF ORDERED, WBC Pending, RBC Pending, Hgb Pending, Hct Pending, MCV Pending, MCH Pending, RDW Pending, Plt Count Pending, MPV Pending, Gran % Pending, Lymphocytes % Pending, Monocytes % Pending, Eosinophils % Pending, Basophils % Pending, Absolute Granulocytes Pending, Segmented Neutrophils Pending, Absolute Lymphocytes Pending, Absolute Monocytes Pending, Absolute Eosinophils Pending, Absolute Basophils Pending, PUBS MCHC Pending Assessment/Plan Assessment: Mr. 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 #Pneumonia: CXR showed Low lung volumes with bibasilar atelectasis. No focal consolidation. Leukocytosis increased from 12.5-17.6. This may be due to prednisone. -Continue ceftriaxone and azithromycin, with fluids. -Continue prednisone -Continue albuterol #CLL -Consider Heme/onc consult #Chronic medical conditions: Continue home meds. -All monitor for agitation and dementia. -Mechanical soft, nectar thick diet per swallow evaluation Full code Problem List: 1. Pneumonia Pain Ratin Pain Location: no pain Pain Goal: Remain pain free Pain Plan: see a/p Tomorrow's Labs & Rationales: cbc, bep
--- NOTE | 2016-12-17 10:04 | PN- Att Addend ---
Attending Addendum Attending Brief Note Mr. Faust was seen and evaluated by me. H&P reviewed. Briefly, he is an 86- year-old gentleman from home with past medical history significant for Parkinson 's disease, ? 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 pt was initially started on Levaquin without much improvement. He was brought to ER and admitted. Currently on CTX and Zithro. Lung exam c/w b/l rhonci CXR showed Low lung volumes with bibasilar atelectasis. No focal consolidation. -- cont current mgmt for now -- monitor clinically for improvement -- rest of the plan as per admitting team
[2016-12-17 15:15] VITALS: BP 118/58
[2016-12-17 22:00] VITALS: BP 128/72
--- NOTE | 2016-12-18 06:40 | PN- Student ---
Subjective Subjective: There were no overnight events. Patient's daughter said that her father has been sleeping well and eating well. He is less confused than he was on presentation. He is still coughing however and has congestion that has remained unchanged despite treatment over the past 2 months. Objective Objective: PE: Vitals: 7:29am: T: 98, P:69, RR: 20, BP: 100/70, O2: 94RA Lung: Diffuse rhonchi BL CV: RRR, No R/M/G Abd: normal bowel sounds, soft and non-tender to palpation Results Results: Laboratory Tests 12/17/16 0735: Anion Gap 11, Estimated GFR 58 L, BUN/Creatinine Ratio 20.8, CBC w Diff MAN DIFF ORDERED, RBC 3.24 L, MCV 88.7, MCH 28.8, RDW 15.5 H, MPV 8.4, Gran % 29.3 L, Lymphocytes % 65.8 H, Monocytes % 3.7, Eosinophils % 0.9, Basophils % 0.3, Absolute Granulocytes 5.2, Absolute Lymphocytes 11.6 H, Absolute Monocytes 0.7 H, Absolute Eosinophils 0.2, Absolute Basophils 0.1, Platelet Estimate VERIFIED BY SMEAR, Anisocytosis 1+, PUBS MCHC 32.5 L 12/16/16 0700: Troponin I Cancelled 12/16/16 0700: Uric Acid 5.9, Phosphorus 4.0, Creatine Kinase 26 L, Troponin I 0.02 12/16/16 0430: Lactic Acid < 0.5 L 12/16/16 0050: Urinalysis MOD H, Urine Color YEL, Urine Clarity HAZY H, Urine pH 6.0, Ur Specific [place] 1.020, Urine Protein TRACE H, Urine Ketones NEG, Urine Nitrite NEG, Urine Bilirubin NEG, Urine Urobilinogen 1.0, Ur Leukocyte Esterase NEG, Ur Microscopic SEDIMENT EXAMINED, Urine RBC 3-5, Urine WBC RARE, Ur Epithelial Cells FEW, Urine Bacteria RARE H, Urine Mucus MOD H, Urine Hemoglobin TRACE- LYSED H, Urine Glucose NEG 12/16/16 0029: Anion Gap 11, Estimated GFR 48 L, BUN/Creatinine Ratio 25.0, Glucose 110 H, Calcium 8.0 L, Total Bilirubin 0.8, AST 15 L, ALT 21, Alkaline Phosphatase 58, Troponin I 0.02, Total Protein 5.4 L, Albumin 3.9, Globulin 1.5 L, Albumin/ Globulin Ratio 2.6 H, CBC w Diff NO MAN DIFF REQ, RBC 3.28 L, MCV 87.0, MCH 28.8, RDW 15.1 H, MPV 7.8, Gran % 38.1 L, Lymphocytes % 57.6 H, Monocytes % 2.9, Eosinophils % 0.7, Basophils % 0.7, Absolute Granulocytes 4.8, Absolute Lymphocytes 7.2 H, Absolute Monocytes 0.4, Absolute Eosinophils 0.1, Absolute Basophils 0.1, PUBS MCHC 33.1 Microbiology 12/165 BLOOD: Blood Culture - RES 12/16 309 BLOOD: Blood Culture - RES 12/16 49 URINE ROUT: Legionella Antigen - COMP 12/16 49 URINE ROUT: Streptococcus pneumoniae Antigen (M - COMP 12/16 49 URINE ROUT: Urine Culture - RES Assessment/Plan Assessment: Mr. Faust is an 86 yo male who presented from home with PMH of Parkinson's disease, dementia, cardiomyopathy with low EF status post AICD placement, prostate cancer status post radial prostatectomy, lung cancer status post lower lobe resection 6 years ago, history of CLL with the chief complaint of worsening confusion, resp congestion, and weakness after taking Levaquin in the morning. Chest x-ray showed low lung volumes with basilar atelectasis and no focal consoliation but head CT showed air fluid levels and thickening in the right maxillary sinus supporting acute on chronic sinusitis. These results suggest pneumonia or URI as the potential sources of the fever. WBC was 8.8 today showing improvement from 17.6. Plan: 1) URI or pneumonia -Discharge today -Treat with Augmentin -Prednisone taper -Continue albuterol 2) CLL Hem/Onc consulted: suggested following for now and treat if AIHA or infections continue to be a concern. 3) Chronic medical conditions: Continue home meds. 4) Dysphagia: Mechanical soft, nectar thick diet per swallow evaluation -follow-up outpatient with speech therapy
--- NOTE | 2016-12-18 07:14 | PN- Housestaff ---
See Addendum Subjective Follow-up For: Pneumonia Subjective: Patient is stable. No overnight events, no fever, chills, SOB or chest pain. Review of Systems Constitutional: Reports: no symptoms. EENTM: Reports: no symptoms. Cardiovascular: Reports: no symptoms. Respiratory: Reports: sputum production. Gastrointestinal: Reports: no symptoms. Genitourinary: Reports: no symptoms. Musculoskeletal: Reports: no symptoms. Skin: Reports: no symptoms. Neurological/Psychological: Reports: dementia. Hematologic/Endocrine: Reports: no symptoms. Immunologic/Allergic: Reports: no symptoms. Objective Last 24 Hrs of Vital Signs/I&O Vital Signs Date Time Temp Pulse Resp B/P B/P Pulse O2 O2 Flow FiO2 Mean Ox Delivery Rate 12/18 1115 94 Room Air 12/18 0729 98.0 69 20 100/70 94 12/17 2200 97.0 82 20 128/72 91 Room Air 12/17 1841 95 Room Air Room Air 12/17 1600 92 Room Air Intake & Output 12/18 1600 12/18 0800 12/18 0000 Intake Total 480 Output Total Balance 480 Intake, Oral 480 Physical Exam General Appearance: Cooperative, No Acute Distress Cardiovascular: Normal S1, Normal S2 Lungs: Bilateral ronchi and wheezing Abdomen: Normal Bowel Sounds, Soft, No Tenderness Extremities: No Clubbing, No Cyanosis, No Edema Current Medications: Current Medications Sig/Pita Start time Last Medication Dose Route Stop Time Status Admin Acetaminophen 650 MG Q6P PRN 12/16 0400 AC PO Albuterol Sulfate 3 ML BID 12/16 1025 AC 12/18 INH 1108 Allopurinol 100 MG DAILY 12/16 1000 AC 12/18 PO 0952 Aspirin 81 MG DAILY 12/16 1000 AC 12/18 PO 0952 Azithromycin 500 MG 12/17 0300 AC 12/18 Sodium Chloride 250 ML IV 0236 Budesonide/ 2 PUF BID 12/16 1000 AC 12/18 Formoterol Fumarate INH 0957 Ceftriaxone Sodium 1,000 MG 12/17 0300 AC 12/18 IV 0236 Clonazepam 0.5 MG DAILY 12/16 1000 AC 12/18 PO 12/23 0959 0957 Cyanocobalamin 1,000 MCG DAILY 12/16 1000 AC 12/18 PO 0952 Ferrous Sulfate 325 MG DAILY 12/16 1000 AC 12/18 PO 0952 Folic Acid 1 MG DAILY 12/16 1000 AC 12/18 PO 0952 Heparin Sodium 5,000 UNIT Q8 12/16 0600 AC 12/18 (Porcine) SC 1516 Levothyroxine Sodium 0.025 MG DAILY AC 12/16 0700 AC 12/18 PO 0636 Memantine 10 MG BID 12/16 1000 AC 12/18 PO 0952 Omeprazole 40 MG DAILY AC 12/16 0700 AC 12/18 PO 0636 Prednisone 60 MG DAILY 12/17 1345 AC 12/18 PO 0952 Quetiapine Fumarate 25 MG QPM 12/16 2200 AC 12/16 PO 2140 Rivastigmine 13.8 MG DAILY 12/16 1000 AC 12/18 TOP 0957 Sertraline HCl 200 MG DAILY 12/16 1000 AC 12/18 PO 0952 Last 24 Hrs of Lab/Nilesh Results Last 24 Hrs of Labs/Mics: Laboratory Tests 12/18/16621: Anion Gap 9, Estimated GFR > 60, BUN/Creatinine Ratio 24.0, CBC w Diff NO MAN DIFF REQ, RBC 3.02 L, MCV 87.9, MCH 28.6, RDW 15.3 H, MPV 8.4, Gran % 33.2 L, Lymphocytes % 64.8 H, Monocytes % 1.7, Eosinophils % 0.2, Basophils % 0.1, Absolute Granulocytes 2.9, Absolute Lymphocytes 5.7 H, Absolute Monocytes 0.1 L, Absolute Eosinophils 0, Absolute Basophils 0, PUBS MCHC 32.6 L Assessment/Plan Assessment: Mr. 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 #Pneumonia: Patient met SIRS criteria on admission. Resloved now. CXR showed Low lung volumes with bibasilar atelectasis. No focal consolidation. Leukocytosis increased from 12.5-17.6. This may be due to prednisone. -Continue ceftriaxone and azithromycin, will change to PO Augmentin tomorrow x 5days. D/C IV fluids. -Continue prednisone 60mg. Taper quickly over a week and then continue with the home dose of 5mg daily. -Continue albuterol #CLL -Heme/onc consult: Monitor for now. rapid steroid taper. Consider treatment if recurrent infections or persistent AIHA. #Chronic medical conditions: Continue home meds. -All monitor for agitation and dementia. -Mechanical soft, nectar thick diet per swallow evaluation. Modified barium swallow studies as an outpatient. Full code. DVT prophylaxis with subcutaneous heparin. Problem List: 1. ACUTE CONFUSIONAL STATE 2. Cardiomyopathy 3. Dementia 4. Pneumonia 5. Parkinsons 6. CLL (chronic lymphocytic leukemia) 7. AIHA (autoimmune hemolytic anemia) Pain Ratin Pain Location: None Pain Goal: Remain pain free Pain Plan: None Tomorrow's Labs & Rationales: CBC(Pneumonia)
[2016-12-18 07:29] VITALS: BP 100/70
[2016-12-18 08:21] LABS: ABSOLUTE BASOPHIL COUNT 0 /CUMM (0.0-0.2); ABSOLUTE EOSINOPHIL COUNT 0 /CUMM (0.0-0.7); ABSOLUTE GRANULOCYTE CT 2.9 /CUMM (1.4-6.5); MEAN CORPUSCULAR HGB CONC 32.6 G/DL (33.0-37.0)
[2016-12-18 08:26] LABS: ABSOLUTE LYMPH COUNT 5.7 /CUMM (1.2-3.4); ABSOLUTE MONOCYTE COUNT 0.1 /CUMM (0.10-0.60); BASOPHIL % 0.1 % (0.0-2.0); EOSINOPHIL % 0.2 % (0-5); GRANULOCYTE % 33.2 % (42.2-75.2); HEMATOCRIT 26.6 % (42-52); MEAN CORPUSCULAR HGB 28.6 PG (27.0-31.0); MEAN CORPUSCULAR VOLUME 87.9 FL (80.0-94.0); MEAN PLATELET VOLUME 8.4 FL (7.4-10.4); RBC DISTRIBUTION WIDTH 15.3 % (11.5-14.5); RED BLOOD CELL CT 3.02 /CUMM (4.70-6.10); WHITE BLOOD CELL COUNT 8.8 /CUMM (4.8-10.8)
--- NOTE | 2016-12-18 08:38 | Cons- Hematology ---
General Information and HPI Consulting Request Date of Consult: 12/18/16 Requested By: BARBARA ROSE MD Reason for Consult: CLL Source of Information: patient, family, old records Exam Limitations: dementia, poor historian History of Present Illness: is a 86 year old male with CLL, autoimmune hemolytic anemia, Parkinsons disease, CAD, cardiomyopathy, pacemaker/AICD, lung cancer s/p surgical resection , and asthma who presented to the hospital with confusion and weakness. This morning, his daughter is with Mr. Faust. He has been having congestions for the past 2 months. He has had Z-diomedes and Levaquin. He became confused with one dose of Levaquin. He was also noted fever and cough. He has a clear sputums. He has no chest pain. On presentation, he was noted to be febrile. His platelet count was 107,000 with WBC of 12,500. He has chest x-ray demonstrating low lung bibasilar atelectasis. He was started on high dose prednisone at 60 mg daily, ceftrixone/ azithromycin. Currently, he feels a little better. Fever has improved. Allergies/Medications Allergies: Coded Allergies: NO KNOWN ALLERGIES (07/20/14) Home Med List: Allopurinol 100 MG TABLET 100 MG PO DAILY INCREASED URIC ACID Aspirin (Children's Aspirin) 81 MG TAB.CHEW 1 TAB PO DAILY HEART HEALTH ( Reported) Augmentin (Augmentin 500-125 Tablet) 500 MG-125 MG TABLET 500 MG PO Q12 PNA Budesonide/Formoterol Fumarate (Symbicort 160-4.5 Mcg Inhaler) 160 MCG-4.5 MCG/ ACTUATION HFA.AER.AD 2 PUF INH BID BREATHING PROBLEMS (Reported) Clonazepam 0.5 MG TABLET 1 TAB PO DAILY anxiety (Reported) Cyanocobalamin (Vitamin B-12) 1,000 MCG TABLET 1,000 MCG PO DAILY CLL Ferrous Sulfate (Ferosul) 325 MG (65 MG IRON) TABLET 1 TAB PO DAILY SUPPLEMENT (Reported) Folic Acid 1 MG TABLET 1 MG PO DAILY CLL Levofloxacin (Levaquin) 500 MG TABLET 1 TAB PO DAILY INFECTION (Reported) Levothyroxine Sodium 25 MCG TABLET 1 TAB PO DAILY THYROID (Reported) Memantine HCl (Namenda) 10 MG TABLET 1 TAB PO BID DEMENTIA (Reported) Omeprazole 40 MG CAPSULE.DR 1 CAP PO DAILY GI (Reported) Prednisone 5 MG TABLET 1 TAB PO DAILY CLL (Reported) Prednisone 20 MG TABLET 60 MG PO DAILY AUTOIMMUNE HEMOLYTIC ANEMIA Quetiapine Fumarate 25 MG TABLET 1 TAB PO QPM MENTAL HEALTH (Reported) Rivastigmine (Exelon) 13.3 MG/24 HOUR PATCH.TD24 1 PAT TOP DAILY DEMENTIA ( Reported) Sertraline HCl (Zoloft) 100 MG TABLET 2 TAB PO DAILY DEPRESSION (Reported) Current Medications: Current Medications Sig/Pita Start time Last Medication Dose Route Stop Time Status Admin Acetaminophen 650 MG Q6P PRN 12/16 0400 AC PO Albuterol Sulfate 3 ML BID 12/16 1025 AC 12/17 INH 1841 Allopurinol 100 MG DAILY 12/16 1000 AC 12/17 PO 0904 Aspirin 81 MG DAILY 12/16 1000 AC 12/17 PO 0904 Azithromycin 500 MG 0300 12/17 0300 AC 12/18 Sodium Chloride 250 ML IV 0236 Budesonide/ 2 PUF BID 12/16 1000 AC 12/17 Formoterol Fumarate INH 0902 Ceftriaxone Sodium 1,000 MG 0300 12/17 0300 AC 12/18 IV 0236 Clonazepam 0.5 MG DAILY 12/16 1000 AC 12/17 PO 12/23 0959 0901 Cyanocobalamin 1,000 MCG DAILY 12/16 1000 AC 12/17 PO 0903 Ferrous Sulfate 325 MG DAILY 12/16 1000 AC 12/17 PO 0904 Folic Acid 1 MG DAILY 12/16 1000 AC 12/17 PO 0904 Heparin Sodium 5,000 UNIT Q8 12/16 0600 AC 12/18 (Porcine) SC 0636 Levothyroxine Sodium 0.025 MG DAILY AC 12/16 0700 AC 12/18 PO 0636 Memantine 10 MG BID 12/16 1000 AC 12/17 PO 2057 Omeprazole 40 MG DAILY AC 12/16 0700 AC 12/18 PO 0636 Prednisone 60 MG DAILY 12/17 1345 AC 12/17 PO 1500 Prednisone 5 MG DAILY 12/16 1000 DC 12/17 PO 0902 Quetiapine Fumarate 25 MG QPM 12/16 2200 AC 12/16 PO 2140 Rivastigmine 13.8 MG DAILY 12/16 1000 AC 12/17 TOP 0907 Sertraline HCl 200 MG DAILY 12/16 1000 AC 12/17 PO 0903 Review of Systems Review of Systems: Limited due to mental status. Review of Systems Constitutional: Reports: fever. Denies: chills. Cardiovascular: Denies: chest pain. Respiratory: Reports: cough, short of breath, sputum production, wheezing. Denies: stridor. GI: Denies: abdominal pain, diarrhea. Immunologic/Allergic: Denies: lymphadenopathy. All Other Systems: Reviewed and Negative Past History Travel History Traveled to [place] past 21 day No Medical History Neurological: Parkinson's disease, dementia EENT: NONE Cardiovascular: cardiomyopathy, LOW EF S/P AICD/ PACEMAKER PLACEMENT Respiratory: asthma, adenocarcioma s/p LLL wedge resection Gastrointestinal: ACID REFLUX Hepatic: NONE Renal: intermittent mild renal insuff Musculoskeletal: NONE Psychiatric: anxiety, depression Endocrine: NONE Blood Disorders: CLL Cancer(s): leukemia, lung cancer (LLL wedge resection adenoCa), prostate cancer, CHRONIC LYMPHOCYTIC BATTER OUT/Reproductive: NONE Surgical History Surgical History: LEFT LOWER LOBECTOMY RADICAL PROSTATECTOMY AICD/PPM Family History Relations & Conditions If Any: MOTHER *No pertinent family history FATHER FH: stroke Relation not specified for: colon cancer FH: colon cancer Psychosocial History Who Do You Live With? spouse Services at Home: None Primary Language: Thai (demented) Smoking Status: Former Smoker Living Will? no Power of Mathematics Professor/HCP? yes Name of POA/HCP: pt's , Kandis Faust [id number]/[phone] Functional Ability ADLs Needs Assist: dressing, eating, toileting, bathing. Ambulation: unknown IADLs Needs Assist: shopping, housework, finances, food prep, telephone, transportation, medication admin. Exam & Diagnostic Data Vital Signs and I&O Vital Signs Date Time Temp Pulse Resp B/P B/P Pulse O2 O2 Flow FiO2 Mean Ox Delivery Rate 12/18 0729 98.0 69 20 100/70 94 12/17 2200 97.0 82 20 128/72 91 Room Air 12/17 1841 95 Room Air Room Air 12/17 1600 92 Room Air 12/17 1515 97.5 83 18 118/58 92 Room Air 12/17 1121 95 Room Air Intake & Output 12/18 1600 12/18 0800 12/18 0000 Intake Total 480 Output Total Balance 480 Intake, Oral 480 Physical Exam General Appearance: no apparent distress, alert, awake, comfortable, thin Head: atraumatic Eyes: Bilateral: PERRL. Ears, Nose, Throat: normal pharynx Respiratory: chest non-tender, no respiratory distress, quiet respiration, crackles, wheezing Cardiovascular: regular rate/rhythm, murmur Gastrointestinal: normal bowel sounds, soft, non-tender, splenomegaly Extremities: no edema Neurologic/Psych: awake, alert Skin: intact Lymphatic: no anterior cervical joanna Last 48 Hours of Lab Results: Laboratory Tests 12/18 12/17 0622 0735 Chemistry Sodium (137 - 145 mmol/L) Pending 143 Potassium (3.5 - 5.1 mmol/L) Pending 4.1 Chloride (98 - 107 mmol/L) Pending 111 H Carbon Dioxide (22 - 30 mmol/L) Pending 21 L Anion Gap (5 - 16) Pending 11 BUN (9 - 20 mg/dL) Pending 25 H Creatinine (0.7 - 1.2 mg/dL) Pending 1.2 Estimated GFR (>60 ml/min) 58 L BUN/Creatinine Ratio (7 - 25 %) Pending 20.8 Hematology CBC w Diff Pending MAN DIFF ORDERED WBC (4.8 - 10.8 /CUMM) Pending 17.6 H RBC (4.70 - 6.10 /CUMM) Pending 3.24 L Hgb (14.0 - 18.0 G/DL) Pending 9.3 L Hct (42 - 52 %) Pending 28.7 L MCV (80.0 - 94.0 FL) Pending 88.7 MCH (27.0 - 31.0 PG) Pending 28.8 RDW (11.5 - 14.5 %) Pending 15.5 H Plt Count (130 - 400 /CUMM) Pending 131 MPV (7.4 - 10.4 FL) Pending 8.4 Gran % (42.2 - 75.2 %) 29.3 L Lymphocytes % (20.5 - 51.1 %) 65.8 H Monocytes % (1.7 - 9.3 %) 3.7 Eosinophils % (0 - 5 %) 0.9 Basophils % (0.0 - 2.0 %) 0.3 Absolute Granulocytes (1.4 - 6.5 /CUMM) 5.2 Absolute Lymphocytes (1.2 - 3.4 /CUMM) 11.6 H Absolute Monocytes (0.10 - 0.60 /CUMM) 0.7 H Absolute Eosinophils (0.0 - 0.7 /CUMM) 0.2 Absolute Basophils (0.0 - 0.2 /CUMM) 0.1 Platelet Estimate (ADEQUATE) VERIFIED BY SMEAR Anisocytosis 1+ PUBS MCHC (33.0 - 37.0 G/DL) Pending 32.5 L Assessment/Plan Assessment: is a 86 year old male with CLL, autoimmune hemolytic anemia, Parkinsons disease, CAD, cardiomyopathy, pacemaker/AICD, lung cancer s/p surgical resection , and asthma who presented to the hospital with confusion and weakness. He is being followed as an outpatient for recent AIHA. He is on prednisone 5 mg daily. He has had a persistent respiratory congestion off and on for the past few months. He has not had any fever or chills until recently. He has clear sputum. He was on a Z-diomedes prior without significant improvement. He was started on Levaquin but has confusion and hallucination. He was admitted for worsening respiratory symptoms and fever. Chest x-ray demonstrated bibasilar atelectasis. He is current being treated with prednisone 60 mg daily with ceftriaxone and azithromycin. His blood work demonstrated elevated WBC. His hemoglobin is stable. Platelet count is improved. He can be monitored for now with his CLL. His AIHA is stable and prednisone is increased. He should have a rapid taper as tolerated. Recommendations: URI: -continue current therapy as per primary -prednisone taper as tolerated -may need further imaging of chest if persistent symptoms CLL: -continue to monitor -consider treatment if recurrent infections or persistent AIHA AIHA: -continue steroid and rapid taper -monitor CBC Problem List: 1. CLL (chronic lymphocytic leukemia) 2. Bronchitis 3. AIHA (autoimmune hemolytic anemia) Other Findings/Comments: please call [phone] with any questions or concerns. Consult Acknowledgment - Thank you for your consult request.
[2016-12-18 09:32] LABS: PLATELET COUNT 104 /CUMM (130-400)
--- NOTE | 2016-12-18 13:23 | Patient Discharge Instructions ---
Discharge Instructions General Discharge Information You were seen/treated for: Pneumonia/Bronchitis Watch for these problems: Worsening Shortness of breath Fever Confusion Special Instructions: Please Follow up with your PCP within a week. Please follow up with your neurologist at [facility]. Diet Continue normal diet: Yes (Mechanical Soft,Nector thick ) Activity Full Activity/No Limits: Yes Acute Coronary Syndrome Inclusion Criteria At DC or during hospital stay patient has or had the following: ACS DIAGNOSIS No Discharge Core Measures Meds if any: Prescribed or Continued at Discharge Meds if any: NOT Prescribed or Continued at Discharge Congestive Heart Failure Inclusion Criteria At DC or during hospital stay patient has or had the following: CHF DIAGNOSIS No Discharge Core Measures Meds if any: Prescribed or Continued at Discharge Meds if any: NOT Prescribed or Continued at Discharge Cerebrovascular accident Inclusion Criteria At DC or during hospital stay patient has or had the following: CVA/TIA Diagnosis No Discharge Core Measures Meds if any: Prescribed or Continued at Discharge Meds if any: NOT Prescribed or Continued at Discharge Venous thromboembolism Inclusion Criteria VTE Diagnosis No VTE Type NONE VTE Confirmed by (Test) NONE Discharge Core Measures - Per Current guidelines, there needs to be overlap - treatment for the first 5 days of Warfarin therapy. - If discharged on Warfarin prior to 5 days of - overlap therapy, the patient will need to be - assessed for post discharge needs including - *Post discharge parental anticoagulation - *Warfarin and/or parental anticoagulation education - *Follow up date to check INR post discharge At least 5 days overlap therapy as Inpatient No Meds if any: Prescribed or Continued at Discharge Note: Overlap Therapy is Warfarin and Anticoagulant Meds if any: NOT Prescribed or Continued at Discharge
[2016-12-18] MEDS ORDERED: AUGMENTIN 875-1 EACH PO (13:53)
--- NOTE | 2016-12-18 14:11 | Discharge Summary ---
Visit Information Visit Dates Admission Date: 12/16/16 Discharge Date: 12/19/16 Hospital Course Course Attending Physician: JOVANY TRUONG,GABBIE Love Primary Care Physician: GUS SOLORIO MD Hospital Course: 86-year-old gentleman from home with past medical history significant for Parkinson's disease, ? 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 Most of the history was obtained from the as patient was unable to give history due to clinical condition. Since the past 2 months he's been having "congestion" on and off. Per in September he completed Z-Patricio corse without any improvement. After going back to see his PCP a CT chest done on 10/27/2016 did not show any acute changes. Since the last one week he has gotten progressively weaker until yesterday when after taking a dose of Levaquin prescribed at an urgent care clinic, his confusion became very severe and the decided to call the ambulance. Reports sick contacts which his son with upper respiratory symptoms on Sunday. Patient was [place] recently admitted to [facility] in july and treated for Pneumonia with Augmentin, AIHA and acute blood loss anemia (GI Bleed) s/p PRBC transfusions x 4. Vitals on admission: MAXIMUM TEMPERATURE 103.5 rectally, blood pressure 1 33/ 88 , saturating 91% on room air. On examination obtunded pupils pinpoint and minimally reactive, CVS unremarkable RS scattered wheezing, benign abdominal examination no edema noted. Cogwheel rigidity in bilateral upper extremities. Labs on admission: lymphocytic leukocytosis, normocytic anemia, platelet 107 which is his baseline hypocalcemia, sodium 139, potassium 4.3, BUN 35, creatinine 1.4 LFTs were normal UA negative. Imaging head CT: showed acute on chronic sinusitis, chest x-ray showed only calcific atherosclerosis no acute pathology. EKG showed paced rhythm. ED course: Was given 1 dose of IV ceftriaxone and azithromycin. His blood pressure dropped down to 90 x 51 which responded to 500 mL bolus Patient was admitted to general medicine floor and treated for following problems: SIRS: Febrile to 103 on admission, could most likely be secondary to pneumonia despite negative imaging(CXR) as dehydration could mask pneumonia on imaging.Follow-up blood cultures, sputum culture, Legionella and strep urine antigen were negative. Patient was started on albuterol inhaler, IV ceftriaxone and azithromycin, later changed to PO Augmentin x 5days on Discharge. Patient was also started on prednisone 60mg(suspicion for bronchitis vs pneumonia), taper quickly over a week and then continue with the home dose of 5mg daily. In view of patient's low EF of 30-45%, echo done in July 2016 patient was cautiously hydrated at 75 mL per hour of 1 L NS. CLL: Haem/Onc was consulted. As per Dr. Foster continue to monitor and consider treatment if there is recurrent infections or persistent AIHA. Patient usually follows up with Dr.Khan [facility] CLL monitoring. 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 Diet: Patient kept nothing by mouth initially for pending swallow evaluation. Patient was started on Mechanical soft, nectar thick diet per swallow evaluation. Patient was instructed to do modified barium swallow studies as an outpatient. DVT prophylaxis with subcutaneous heparin Patient is a full code Allergies: Coded Allergies: NO KNOWN ALLERGIES (07/20/14) Disposition Summary Disposition Principal Diagnosis: Pneumonia Additional Diagnosis: CLL Discharge Disposition: home or self care Discharge Instructions General Discharge Information Code Status: Full Code Patient's Diet: Regular(Mechanical soft, nectar thick diet) Patient's Activity: As Tolerated Follow-Up Instructions/Appts: Please follow up with your PCP within a week. Please arrange for modified barrium swallow studies as an outpatient. Medications at Discharge Discharge Medications: Stop taking the following medications: Prednisone (Prednisone) 20 MG TABLET ORAL DAILY Qty = 30 Augmentin (Augmentin 500-125 Tablet) 500 MG-125 MG TABLET ORAL EVERY 12 HOURS Qty = 3 Levofloxacin (Levaquin) 500 MG TABLET ORAL DAILY Continue taking these medications: Sertraline HCl (Zoloft) 100 MG TABLET 2 Tablet ORAL DAILY Comments: Last Taken: 12/19/16 Time: 10:30 AM Clonazepam (Clonazepam) 0.5 MG TABLET 1 Tablet ORAL DAILY Comments: Last Taken:12/19/16 Time:10:30AM Omeprazole (Omeprazole) 40 MG CAPSULE.DR 1 Capsule ORAL DAILY Comments: Last Taken: 12/19/16 Time: 6:30 AM Aspirin (Children's Aspirin) 81 MG TAB.CHEW 1 Tablet ORAL DAILY Comments: Last Taken:12/19/16 Time:10:30AM Budesonide/Formoterol Fumarate (Symbicort 160-4.5 Mcg Inhaler) 160 MCG-4.5 MCG/ ACTUATION HFA.AER.AD 2 Puff Inhale through mouth TWICE DAILY Comments: Last Taken: 12/19/16 Time: 10:30 AM Rivastigmine (Exelon) 13.3 MG/24 HOUR PATCH.TD24 1 Patch On the skin DAILY Comments: Last Taken: 12/19/16 Time: 10:30 AM Memantine HCl (Namenda) 10 MG TABLET 1 Tablet ORAL TWICE DAILY Comments: Last Taken: 12/19/16 Time: 10:30 AM Ferrous Sulfate (Ferosul) 325 MG (65 MG IRON) TABLET 1 Tablet ORAL DAILY Comments: Last Taken: 12/19/16 Time: 10:30 AM Quetiapine Fumarate (Quetiapine Fumarate) 25 MG TABLET 1 Tablet ORAL Every night Qty = 60 Comments: Last Taken: 12/18/16 Time: 8:45 PM Levothyroxine Sodium (Levothyroxine Sodium) 25 MCG TABLET 1 Tablet ORAL DAILY Comments: Last Taken: 12/19/16 Time: 6:30 AM Cyanocobalamin (Vitamin B-12) 1,000 MCG TABLET 1,000 Microgram ORAL DAILY Qty = 30 Comments: Last Taken: 12/19/16 Time: 10:30 AM Folic Acid (Folic Acid) 1 MG TABLET 1 Milligram ORAL DAILY Qty = 30 Comments: Last Taken: 12/19/16 Time: 10:30 AM Allopurinol (Allopurinol) 100 MG TABLET 100 Milligram ORAL DAILY Qty = 30 Comments: Last Taken: 12/19/16 Time: 10:30 AM Prednisone (Prednisone) 5 MG TABLET 1 Tablet ORAL DAILY Qty = 30 Instructions: Please restart this dose once you have completed the prednisone taper. Comments: NOT GIVEN IN HOSPITAL IS ON 60MG PREDNISONE TAPER Start taking the following new medications: Amoxicillin/Potassium Clav (Augmentin 875-125 Tablet) 875 MG-125 MG TABLET 1 Tablet ORAL TWICE DAILY Qty = 10 No Refills Instructions: . Comments: NOT GIVEN IN HOSPITAL Prednisone (Prednisone) 10 MG TABLET 1 Tablet ORAL As Directed Qty = 57 No Refills Instructions: . 12/19 - 12/20 60mg 12/21 - 12/23 50mg 12/24 - 12/26 40mg 12/27 - 12/29 30mg 12/30 - 01/01 20mg 01/02 - 01/04 10mg Resume your regular prednisone 5mg once this is completed Comments: Last Taken:12/19/16 Time:10:30 AM 60MG GIVEN Fluticasone Propionate (Flonase Allergy Relief) 50 MCG/ACTUATION SPRAY.SUSP 1 Steinauer Inhale Solution 2 x Daily as needed as needed for Nasal Congestion Qty = 1 No Refills Instructions: . Comments: NOT GIVEN IN HOSPITAL Container,Empty (Nasal Steinauer Bottle) 1 EACH BOTTLE 1 Steinauer Inhale Solution 2 x Daily as needed as needed for NASAL CONGESTION Qty = 1 No Refills Instructions: . Comments: NOT GIVEN IN HOSPITAL Copies To: ADORE TRUONG,KAYLEE SOLORIO MD,GUS Vieira Attending MD Review Statement Documenting Attending: JOVANY TRUONG,GABBIE Love Other Findings: please see my separate attending note for more details.
[2016-12-18] MEDS ORDERED: PREDNISONE10 M2 PO (14:17)
[2016-12-18 15:31] VITALS: BP 125/64
[2016-12-18 22:38] VITALS: BP 122/60
--- NOTE | 2016-12-19 07:02 | PN- Housestaff ---
See Addendum Subjective Follow-up For: Pneumonia Subjective: Patient is stable, Vitals WNL. Denies any fever, chills, SOB, chest pain or overnight events. Review of Systems Constitutional: Reports: no symptoms. EENTM: Reports: no symptoms. Cardiovascular: Reports: no symptoms. Respiratory: Reports: see HPI. Gastrointestinal: Reports: no symptoms. Genitourinary: Reports: no symptoms. Musculoskeletal: Reports: no symptoms. Skin: Reports: no symptoms. Neurological/Psychological: Reports: no symptoms. Hematologic/Endocrine: Reports: no symptoms. Immunologic/Allergic: Reports: no symptoms. Objective Last 24 Hrs of Vital Signs/I&O Vital Signs Date Time Temp Pulse Resp B/P B/P Pulse O2 O2 Flow FiO2 Mean Ox Delivery Rate 12/19 0825 94 Room Air 12/19 0713 95.2 72 17 120/48 98 12/19 0000 Room Air 12/18 2238 97.7 89 18 122/60 96 Room Air 12/18 2000 Room Air 12/18 1855 96 Room Air 12/18 1531 98.1 87 16 125/64 94 Room Air 12/18 1115 94 Room Air Intake & Output 12/19 1600 12/19 0800 12/19 0000 Intake Total 540 120 Output Total Balance 540 120 Intake, IV 300 Intake, Oral 240 120 Number 0 1 Bowel Movements Physical Exam General Appearance: Alert, Oriented X3, Cooperative Cardiovascular: Regular Rate, Normal S1, Normal S2 Lungs: Mild wheezing bilaterally Abdomen: Normal Bowel Sounds, Soft, No Tenderness Extremities: No Clubbing, No Cyanosis, No Edema, Normal Pulses Current Medications: Current Medications Sig/Pita Start time Last Medication Dose Route Stop Time Status Admin Acetaminophen 650 MG Q6P PRN 12/16 0400 AC PO Albuterol Sulfate 3 ML BID 12/16 1025 AC 12/19 INH 0810 Allopurinol 100 MG DAILY 12/16 1000 AC 12/18 PO 0952 Aspirin 81 MG DAILY 12/16 1000 AC 12/18 PO 0952 Azithromycin 500 MG 12/17 0300 AC 12/19 Sodium Chloride 250 ML IV 0303 Budesonide/ 2 PUF BID 12/16 1000 AC 12/18 Formoterol Fumarate INH 2047 Ceftriaxone Sodium 1,000 MG 0300 12/17 0300 AC 12/19 IV 0303 Clonazepam 0.5 MG ONCE ONE 12/18 1630 DC 12/18 PO 12/18 1631 1636 Clonazepam 0.5 MG DAILY 12/16 1000 AC 12/18 PO 12/23 0959 0957 Cyanocobalamin 1,000 MCG DAILY 12/16 1000 AC 12/18 PO 0952 Ferrous Sulfate 325 MG DAILY 12/16 1000 AC 12/18 PO 0952 Folic Acid 1 MG DAILY 12/16 1000 AC 12/18 PO 0952 Heparin Sodium 5,000 UNIT Q8 12/16 0600 AC 12/19 (Porcine) SC 0618 Levothyroxine Sodium 0.025 MG DAILY AC 12/16 0700 AC 12/19 PO 0618 Memantine 10 MG BID 12/16 1000 AC 12/18 PO 2046 Omeprazole 40 MG DAILY AC 12/16 0700 AC 12/19 PO 0618 Prednisone 60 MG DAILY 12/17 1345 AC 12/18 PO 0952 Quetiapine Fumarate 25 MG QPM 12/16 2200 AC 12/18 PO 2046 Rivastigmine 13.8 MG DAILY 12/16 1000 AC 12/18 TOP 0957 Sertraline HCl 200 MG DAILY 12/16 1000 AC 12/18 PO 0952 Last 24 Hrs of Lab/Nilesh Results Last 24 Hrs of Labs/Mics: Laboratory Tests 12/19/16 0653: CBC w Diff Pending, WBC Pending, RBC Pending, Hgb Pending, Hct Pending, MCV Pending, MCH Pending, RDW Pending, Plt Count Pending, MPV Pending, PUBS MCHC Pending Assessment/Plan Assessment: Mr. 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 #Pneumonia: Patient met SIRS criteria on admission. Resloved now. CXR showed Low lung volumes with bibasilar atelectasis. No focal consolidation. Leukocytosis increased from 12.5-17.6. This may be due to prednisone. -Continue ceftriaxone and azithromycin, will change to PO Augmentin tomorrow x 5days. D/C IV fluids. -Continue prednisone 60mg. Taper quickly over a week and then continue with the home dose of 5mg daily. -Continue albuterol #CLL -Heme/onc consult: Monitor for now. rapid steroid taper. Consider treatment if recurrent infections or persistent AIHA. #Chronic medical conditions: Continue home meds. -All monitor for agitation and dementia. -Mechanical soft, nectar thick diet per swallow evaluation. Modified barium swallow studies as an outpatient. Full code. DVT prophylaxis with subcutaneous heparin. Problem List: 1. Pneumonia 2. Parkinsons 3. Altered mental state 4. Hypothyroidism 5. CLL (chronic lymphocytic leukemia) 6. AIHA (autoimmune hemolytic anemia) Pain Ratin Pain Location: None Pain Goal: Remain pain free Pain Plan: None Tomorrow's Labs & Rationales: None(Discharge)
[2016-12-19 07:13] VITALS: BP 120/48
--- NOTE | 2016-12-19 08:03 | PN- Student ---
Subjective Subjective: No overnight events. The patient's daughter said that her father is eating and sleeping well. Her only concern is the continued congestion. She agreed to have her father follow-up with speech therapy out-patient for dysphagia. They are looking forward to his discharge. Objective Objective: PE: Vitals: T: 95.2, P:72, RR: 17, BP: 120/48, O2: 98RA Lung: Diffuse rhonchi BL CV: RRR, No R/M/G Abd: normal bowel sounds, soft and non-tender to palpation Results Results: Laboratory Tests 12/18/16 0622: Anion Gap 9, Estimated GFR > 60, BUN/Creatinine Ratio 24.0, CBC w Diff NO MAN DIFF REQ, RBC 3.02 L, MCV 87.9, MCH 28.6, RDW 15.3 H, MPV 8.4, Gran % 33.2 L, Lymphocytes % 64.8 H, Monocytes % 1.7, Eosinophils % 0.2, Basophils % 0.1, Absolute Granulocytes 2.9, Absolute Lymphocytes 5.7 H, Absolute Monocytes 0.1 L, Absolute Eosinophils 0, Absolute Basophils 0, PUBS MCHC 32.6 L 12/17/16 0735: Anion Gap 11, Estimated GFR 58 L, BUN/Creatinine Ratio 20.8, CBC w Diff MAN DIFF ORDERED, RBC 3.24 L, MCV 88.7, MCH 28.8, RDW 15.5 H, MPV 8.4, Gran % 29.3 L, Lymphocytes % 65.8 H, Monocytes % 3.7, Eosinophils % 0.9, Basophils % 0.3, Absolute Granulocytes 5.2, Absolute Lymphocytes 11.6 H, Absolute Monocytes 0.7 H, Absolute Eosinophils 0.2, Absolute Basophils 0.1, Platelet Estimate VERIFIED BY SMEAR, Anisocytosis 1+, PUBS MCHC 32.5 L Assessment/Plan Assessment: Mr. 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 Chest x-ray showed low lung volumes with basilar atelectasis and no focal consoliation but head CT showed air fluid levels and thickening in the right maxillary sinus supporting acute on chronic sinusitis. These results suggest pneumonia or URI as the potential sources of the fever. WBC was 8.8 yesterday showing improvement from 17.6. Plan: 1) URI or pneumonia -Discharge today -Treat with Augmentin -Prednisone taper -Continue albuterol 2) CLL Hem/Onc consulted: suggested following for now and treat if AIHA or infections continue to be a concern. 3) Chronic medical conditions: Continue home meds. 4) Dysphagia: Mechanical soft, nectar thick diet per swallow evaluation -follow-up outpatient with speech therapy
--- NOTE | 2016-12-19 08:59 | PN- Hematology ---
Subjective Subjective: He feels well. He denies any new symptoms. He is breathing better. Review of Systems: Limited due to dementia. Constitutional: Denies: chills. fever Cardiovascular: Denies: chest pain. Respiratory: Reports: cough, wheezing. Denies: stridor. GI: Denies: abdominal pain, diarrhea. Immunologic/Allergic: Denies: lymphadenopathy. All Other Systems: Reviewed and Negative Objective Vital Signs and I&Os Vital Signs Date Time Temp Pulse Resp B/P B/P Pulse O2 O2 Flow FiO2 Mean Ox Delivery Rate 12/19 0825 94 Room Air 12/19 0713 95.2 72 17 120/48 98 12/19 0000 Room Air 12/18 2238 97.7 89 18 122/60 96 Room Air 12/18 2000 Room Air 12/18 1855 96 Room Air 12/18 1531 98.1 87 16 125/64 94 Room Air 12/18 1115 94 Room Air Intake & Output 12/19 1600 12/19 0800 12/19 0000 12/18 1600 12/18 0800 12/18 0000 Intake Total 540 120 480 Output Total Balance 540 120 480 Intake, IV 300 Intake, Oral 240 120 480 Number 0 1 Bowel Movements Physical Exam: General Appearance: no apparent distress, alert, awake, comfortable, thin Respiratory: chest non-tender, no respiratory distress, quiet respiration, crackles, wheezing Cardiovascular: regular rate/rhythm, murmur Gastrointestinal: normal bowel sounds, soft, non-tender, splenomegaly Extremities: no edema Neurologic/Psych: awake, alert Skin: intact Current Medications: Current Medications Sig/Pita Start time Last Medication Dose Route Stop Time Status Admin Acetaminophen 650 MG Q6P PRN 12/16 0400 AC PO Albuterol Sulfate 3 ML BID 12/16 1025 AC 12/19 INH 0810 Allopurinol 100 MG DAILY 12/16 1000 AC 12/18 PO 0952 Aspirin 81 MG DAILY 12/16 1000 AC 12/18 PO 0952 Azithromycin 500 MG 12/17 0300 AC 12/19 Sodium Chloride 250 ML IV 0303 Budesonide/ 2 PUF BID 12/16 1000 AC 12/18 Formoterol Fumarate INH 2047 Ceftriaxone Sodium 1,000 MG 12/17 0300 AC 12/19 IV 0303 Clonazepam 0.5 MG ONCE ONE 12/18 1630 DC 12/18 PO 12/18 1631 1636 Clonazepam 0.5 MG DAILY 12/16 1000 AC 12/18 PO 12/23 0959 0957 Cyanocobalamin 1,000 MCG DAILY 12/16 1000 AC 12/18 PO 0952 Ferrous Sulfate 325 MG DAILY 12/16 1000 AC 12/18 PO 0952 Folic Acid 1 MG DAILY 12/16 1000 AC 12/18 PO 0952 Heparin Sodium 5,000 UNIT Q8 12/16 0600 AC 12/19 (Porcine) SC 0618 Levothyroxine Sodium 0.025 MG DAILY AC 12/16 0700 AC 12/19 PO 0618 Memantine 10 MG BID 12/16 1000 AC 12/18 PO 2046 Omeprazole 40 MG DAILY AC 12/16 0700 AC 12/19 PO 0618 Prednisone 60 MG DAILY 12/17 1345 AC 12/18 PO 0952 Quetiapine Fumarate 25 MG QPM 12/16 2200 AC 12/18 PO 204 Rivastigmine 13.8 MG DAILY 12/16 1000 AC 12/18 TOP 0957 Sertraline HCl 200 MG DAILY 12/16 1000 AC 12/18 PO 09 Results Last 24 Hours of Lab Results: Laboratory Tests 12/19 0653 Hematology CBC w Diff Pending WBC Pending RBC Pending Hgb Pending Hct Pending MCV Pending MCH Pending RDW Pending Plt Count Pending MPV Pending PUBS MCHC Pending Assessment/Plan Assessment/Recommendations: is a 86 year old male with CLL, autoimmune hemolytic anemia, Parkinsons disease, CAD, cardiomyopathy, pacemaker/AICD, lung cancer s/p surgical resection , and asthma who presented to the hospital with confusion and weakness. He is doing well with the increased steroid dosing. He has been afebrile. His hemoglobin is slightly decreased. This may be related infection. He can be monitored for this currently. His WBC is normal. He should have a rapid steroid taper as tolerated. Recommendations: URI/CAP: -continue current therapy as per primary -prednisone taper as tolerated CLL: -consider treatment if recurrent infections or persistent AIHA -no intervention needed at the moment AIHA: -continue steroid and rapid taper Follow up as outpatient in 1 week Please call [phone] with any questions or concerns. Problem List: 1. Bronchitis 2. Pneumonia 3. AIHA (autoimmune hemolytic anemia) 4. CLL (chronic lymphocytic leukemia)
[2016-12-19 09:20] LABS: ABSOLUTE BASOPHIL COUNT 0 /CUMM (0.0-0.2); ABSOLUTE EOSINOPHIL COUNT 0 /CUMM (0.0-0.7); ABSOLUTE GRANULOCYTE CT 3.7 /CUMM (1.4-6.5); ABSOLUTE LYMPH COUNT 9.2 /CUMM (1.2-3.4); ABSOLUTE MONOCYTE COUNT 0.4 /CUMM (0.10-0.60); BASOPHIL % 0.2 % (0.0-2.0); EOSINOPHIL % 0.2 % (0-5); GRANULOCYTE % 27.6 % (42.2-75.2); HEMATOCRIT 26.6 % (42-52); MEAN CORPUSCULAR HGB 28.5 PG (27.0-31.0); MEAN CORPUSCULAR HGB CONC 32.3 G/DL (33.0-37.0); MEAN CORPUSCULAR VOLUME 88.2 FL (80.0-94.0); MEAN PLATELET VOLUME 8.1 FL (7.4-10.4); PLATELET COUNT 128 /CUMM (130-400); RBC DISTRIBUTION WIDTH 15.3 % (11.5-14.5); RED BLOOD CELL CT 3.02 /CUMM (4.70-6.10)
[2016-12-19] MEDS ORDERED: FLONASE ALLERG9.9 ML INH/SOL ×2 (09:28→11:24)
[2016-12-19] MEDS ORDERED: [UNRECOGNIZED DRUG - OTHER] INH/SOL ×2 (09:28→11:24)
[2016-12-19 10:48] LABS: WHITE BLOOD CELL COUNT 13.3 /CUMM (4.8-10.8)
[2016-12-19] MEDS ORDERED: PREDNISONE10 M2 PO (11:24)
[2016-12-19] MEDS ORDERED: AUGMENTIN 875-1 EACH PO (11:24)
== END 2016-12-19 12:08 | disposition home health service (06) | DRG 190 ==
LOC: ERH 00:10 → 2NB 02:06 → ERHI 02:06 → ENRESERV 03:35 → CANRESERV 03:35 → ENRESERV 05:50 → 2NB 06:18 → CANRESERV 06:26 → ENRESERV 06:26 → CANBEDREQ 12-17 05:57 → 2NB 12-18 08:41 → ENPENDDIS 12-19 09:37 → 2NB 12-19 12:08
PROVIDERS: Internal Medicine; Pediatrics; ADMIT Internal Medicine
DX: J44.0 Chronic obstructive pulmonary disease with (acute) lower respiratory infection (principal); J18.9 Pneumonia, unspecified organism; C91.10 Chronic lymphocytic leukemia of B-cell type not having achieved remission; I42.9 Cardiomyopathy, unspecified; I11.0 Hypertensive heart disease with heart failure; I50.22 Chronic systolic (congestive) heart failure; D59.1 Other autoimmune hemolytic anemias; F05 Delirium due to known physiological condition; G20 Parkinson's disease; F02.80 Dementia in other diseases classified elsewhere, unspecified severity, without behavioral disturbance, psychotic disturbance, mood disturbance, and anxiety; Z85.118 Personal history of other malignant neoplasm of bronchus and lung; Z85.46 Personal history of malignant neoplasm of prostate; Z95.0 Presence of cardiac pacemaker; Z95.810 Presence of automatic (implantable) cardiac defibrillator; F41.9 Anxiety disorder, unspecified; F32.9 Major depressive disorder, single episode, unspecified
CPT/HCPCS: 2NBSP; 36415; 81001; 82436; 87040; 87086; 87449; 87450; 93005; 93010; 96361; 96374; 96375; 97116-GO; 97161-GP; 97530-GO; J0131; J0456; J0696; J1644; J1885; J3490; J7040; J7512